=== PATIENT | male | born 1965 | race Caucasian/White ===

== ENCOUNTER 2016-11-27 03:21 | Inpatient (IN) | payer OTHER ==
[2016-11-27] VITALS (62 sets, daily range): BP systolic 64–121; BP diastolic 48–105; PULSE 100–121; RESP 24–26; TEMP 98.1; Ht 172.7 cm; Wt 96.8 kg
[~2016-11-27] VITALS: Ht 172.7 cm; Wt 96.8 kg
[2016-11-27] MEDS ORDERED: MIDAZOLAM (DRIP) 50 mg/50 mL 50 ML IV STA (03:57)
[2016-11-27] MEDS ORDERED: SOD CHLORIDE 0.9% 1,000 ML IV STA ×2 (03:57→04:50)
[2016-11-27] MEDS ORDERED: FENTAnyl (DRIP) 1000 mcg/100mL 100 ML IV ONE (04:00)
[2016-11-27] MEDS ORDERED: ASPIRIN 300 MG SUPP PR STA (04:50)
[2016-11-27] MEDS: DOPamine-D5W 1.6 MG/ML 250 ML IV SCH ×3 (04:55→18:28)
[2016-11-27] MEDS ORDERED: SOD CHLORIDE 0.9% 1,000 ML IV ONE ×3 (05:00→06:00)
[2016-11-27 05:09] LABS: BASOPHILS % 0.3 % (0.0-2.0); EOSINOPHILS % 0.2 % (0.0-7.0); HEMOGLOBIN 13.2 g/dl (14.0-18.0); LYMPHOCYTES # 3.5 10^3/ul (0.8-2.9); LYMPHOCYTES % 22.8 % (15.0-51.0); MEAN CORPUSCULAR HEMOGLOBIN 33.7 pg (29.0-33.0); MEAN CORPUSCULAR HGB CONC 32.2 g/dl (32.0-37.0); MEAN CORPUSCULAR VOLUME 104.6 fl (82.0-101.0); MEAN PLATELET VOLUME 11.5 fl (7.4-10.4); MONOCYTE # 0.9 10^3/ul (0.3-0.9); MONOCYTES % 5.9 % (0.0-11.0); NEUTROPHIL # 10.3 10^3/ul (1.6-7.5); NEUTROPHILS % 67.8 % (39.0-77.0); NUCLEATED RED BLOOD CELLS% 0.1 /100WBC (0.0-0.0); PLATELET COUNT 191 10^3/UL (140-415); RED BLOOD COUNT 3.92 10^6/ul (4.70-6.10); RED CELL DISTRIBUTION WIDTH 12.3 % (11.5-14.5); WHITE BLOOD COUNT 15.1 10^3/ul (4.8-10.8)
[2016-11-27 05:13] LABS: ADD SCAN DIFF NO
--- NOTE | 2016-11-27 05:16 | RADRPT ---
PROCEDURE: XR Chest. CLINICAL INDICATION: Cardiac arrest. Chest pain. TECHNIQUE: Portable single view of the chest COMPARISON: None. FINDINGS: The cardiopericardial silhouette is enlarged. Mediastinal contours appear widened. Probable externa l pacer overlies the heart. Electronic device partially obscures visualization of the malathi. The endotracheal tube is likely in the mid trachea between the malathi and clavicles. Lung volumes are r educed. There is mild pulmonary vascular congestion. No focal infiltrate or pleural effusion. No pneumothorax is seen. Air is seen in the stomach. IMPRESSION: Cardiomegaly and mild congestion. Endotracheal tube likely in good position. Enlarged cardioperica rdial silhouette with slightly widened mediastinum. CT may be obtained if dissection is suspected c linically. RPTAT: [facility] Physician Vanessa Date Time Electronically viewed and signed by Dee Villagran Physician on 11/27/2016 05:15 LE/
[2016-11-27 05:17] LABS: ALBUMIN 4.5 g/dl (3.3-4.9); BILIRUBIN,INDIRECT 0.4 mg/dl (0-1.1); BILIRUBIN,TOTAL 0.4 mg/dl (0.2-1.3); CALCIUM 9.3 mg/dl (8.4-10.2); CREATININE 1.36 mg/dl (0.61-1.24); INR 1.3; PARTIAL THROMBOPLASTIN TIME 37.6 Sec (25.0-35.0); POTASSIUM 3.7 mmol/L (3.5-5.1); PROTIME 16.3 Sec (12.2-14.2); PT RATIO 1.3; TOTAL PROTEIN 7.3 g/dl (6.1-8.1)
[2016-11-27 05:31] LABS: CK-MB 39.4 ng/ml (0.0-2.4)
[2016-11-27 05:33] LABS: TROPONIN-I 34.9 ng/ml (0.00-0.12)
[2016-11-27] MEDS ORDERED: HEPARIN 1000 UNITS/ML 10 ML INJ IV STA (05:51)
[2016-11-27] MEDS ORDERED: HEPARIN 25000 UNITS/250 ML 250 ML IV STA (05:51)
--- NOTE | 2016-11-27 06:21 | ERA ---
ER Documentation Chief Complaint Date/Time DATE: 11/27/16 TIME: 06:11 Chief Complaint CARDIAC ARREST, ROSC HPI This 51-year-old male was brought in by paramedics after being found in a V. fib initial rhythm cardiac arrest. Initiated CPR immediately. They gave him for doses of epinephrine and placed a Ephraim tube. He did get return of spontaneous circulation prior to arrival. My medical history there was hypertension elevated ammonia from the family. ROS Unobtainable Allergies Allergies: Coded Allergies: No Known Allergy (Unverified , 11/27/16) PMhx/Soc Medical and Surgical Hx: Unable to obtain Smoking Status: Unknown if ever smoked Physical Exam Vitals Vital Signs Date Time Temp Pulse Resp B/P Pulse Ox O2 Delivery O2 Flow Rate FiO2 11/27/16 05:45 89 20 94/61 100 Mechanical Ventilator 11/27/16 05:30 90 20 96/65 100 Mechanical Ventilator 11/27/16 05:21 90 24 100 50 11/27/16 05:15 89 20 91/65 100 Mechanical Ventilator 11/27/16 05:00 91 20 83/61 100 Mechanical Ventilator 11/27/16 04:50 91 24 100 100 11/27/16 04:45 87 20 100 Mechanical Ventilator 11/27/16 04:30 92 20 88/56 100 Mechanical Ventilator 11/27/16 04:15 98.1 90 20 82/66 100 Mechanical Ventilator 11/27/16 03:36 98.1 91 20 84/62 100 11/27/16 03:30 100 Physical Exam Const: [] Head: Atraumatic Eyes: Normal Conjunctiva ENT: Normal External Ears, Nose and Mouth. Neck: Full range of motion..~ No meningismus. Resp: Clear to auscultation bilaterally Cardio: Regular rate and rhythm, no murmurs Abd: Soft, non tender, non distended. Normal bowel sounds Skin: No petechiae or rashes Back: No midline or flank tenderness Ext: No cyanosis, or edema Neur: Awake and alert Psych: Normal Mood and Affect Result Diagram: 11/27/16 0350 11/27/16 0350 Results 24 hrs Laboratory Tests Test 11/27/16 03:50 White Blood Count 15.110^3/ul Red Blood Count 3.9210^6/ul Hemoglobin 13.2g/dl Hematocrit 41.0% Mean Corpuscular Volume 104.6fl Mean Corpuscular Hemoglobin 33.7pg Mean Corpuscular Hemoglobin Concent 32.2g/dl Red Cell Distribution Width 12.3% Platelet Count 96501^3/UL Mean Platelet Volume 11.5fl Neutrophils % 67.8% Lymphocytes % 22.8% Monocytes % 5.9% Eosinophils % 0.2% Basophils % 0.3% Nucleated Red Blood Cells % 0.1/100WBC Neutrophils # 10.310^3/ul Lymphocytes # 3.510^3/ul Monocytes # 0.910^3/ul Eosinophils # 0.010^3/ul Basophils # 0.010^3/ul Nucleated Red Blood Cells # 0.010^3/ul Prothrombin Time 16.3Sec Prothrombin Time Ratio 1.3 INR International Normalized Ratio 1.30 Activated Partial Thromboplast Time 37.6Sec Sodium Level 133mmol/L Potassium Level 3.7mmol/L Chloride Level 92mmol/L Carbon Dioxide Level 19mmol/L Anion Gap 26 Blood Urea Nitrogen 12mg/dl Creatinine 1.36mg/dl Glucose Level 220mg/dl Calcium Level 9.3mg/dl Total Bilirubin 0.4mg/dl Direct Bilirubin 0.00mg/dl Indirect Bilirubin 0.4mg/dl Aspartate Amino Transf (AST/SGOT) 578IU/L Alanine Aminotransferase (ALT/SGPT) 543IU/L Alkaline Phosphatase 102IU/L Ammonia 25umol/l Creatine Kinase 792IU/L Creatine Kinase Index 5.0 Creatinine Kinase MB (Mass) 39.40ng/ml Troponin I 34.900ng/ml Total Protein 7.3g/dl Albumin 4.5g/dl Current Medications Medications (Trade) Dose Ordered Sig/Yeny Route PRN Reason Start Time Stop Time Status Last Admin Dose Admin Sodium Chloride 1,000 ml @ 1,000 mls/hr Q1H STAT IV 11/27/16 03:57 11/27/16 04:56 DC 11/27/16 04:03 Midazolam HCl 50 ml @ 3 mls/hr ONCE STAT IV 11/27/16 03:57 11/27/16 20:36 11/27/16 04:04 Fentanyl 100 ml @ 2.5 mls/hr TITRATE ONCE IV 11/27/16 04:00 11/28/16 19:59 11/27/16 04:21 Dopamine HCl/ Dextrose 250 ml @ 9.887 mls/ hr TITRATE IV 11/27/16 05:00 11/27/16 04:55 Sodium Chloride 1,000 ml @ 1,000 mls/hr Q1H ONCE IV 11/27/16 05:00 11/27/16 05:59 DC 11/27/16 04:54 Sodium Chloride (NS) 1,000 ml @ 1,000 mls/hr Q1H STAT IV 11/27/16 04:50 11/27/16 05:49 DC 11/27/16 05:21 Aspirin 300 mg 300 mg ONCE STAT WA 11/27/16 04:50 11/27/16 04:54 DC 11/27/16 05:35 Sodium Chloride (NS) 1,000 ml @ 1,000 mls/hr Q1H ONCE IV 11/27/16 05:30 11/27/16 06:29 11/27/16 05:21 Heparin Sodium (Porcine) 4000 unit 4,000 unit ONCE STAT IV 11/27/16 05:51 11/27/16 06:04 DC Heparin Sodium (Porcine) 250 ml @ 0 mls/hr ONCE STAT IV 11/27/16 05:51 11/27/16 06:04 DC Sodium Chloride (NS) 1,000 ml @ 1,000 mls/hr Q1H ONCE IV 11/27/16 06:00 11/27/16 06:59 Procedures/MDM V. fib arrest. Patient with significant hypotension after that. He was immediately intubated on arrival with an ET tube. Amiodarone 300 mg was administered. Patient's blood pressure is initially very low. I placed a central line in the meantime administered 1 dose of epinephrine was temporarily bridge the blood pressure. No signs of infection. Spoke with the [facility] doctor and asked him to look to the patient's chart. He stated the patient has had mildly elevated LFTs in the past but never significantly elevated ammonia level. So the patient is also diabetic which the family did not contribute. Patient's blood pressure was still low on Levophed and dopamine was also added. He was given multiple liters of IV fluid. Initially spoke with Dr. Bowden after patient's arrival initial EKG. EKG did not show STEMI she did not think the patient needed to be emergently catheterized. Patient was given rectal aspirin and heparinized. Spoke with Dr. Lujan will be admitting the patient ICU. I have ordered a CT abdomen pelvis for completeness with a significant elevated liver enzymes and will be followed by the panel team as I have mentioned to Dr. Lujan. Hypothermia protocol was not initiated because patient's initial arrival he had apparent purposeful movements just following intubation. Also required increasing sedation as he was bucking the vent, chewing in ET tube and moving his arms and legs. EKG interpretation: Accelerated junctional rhythm with no visible P waves, rate of 90, ST elevations in lead V2 with no consecutive ST elevations. T-wave in lead inversions in inferior leads III and aVF. Bifascicular block. monitoring analyst interpretation: Normal sinus rhythm alternating with junctional rhythm without tachycardia or other arrhythmias. Chest x-ray interpretation: Cardiomegaly with no acute process. ET tube in place. I see no pneumothorax, no pulmonary edema, no infiltrates, no fractures Critical care time 48 minutes: This does not include any billable procedures. It does include postresuscitative care, consideration of hypothermia protocol, careful fluid administration, vasodepressor use, ventilator management, chart reviewed, discussion with García doctor and admitting doctor as well as family, at least 20 minutes at the patient's bedside and multiple visits to reassess his status. Central line note, right femoral: Sterile technique was used with mass Gown and gloves and drapes chlorhexidine wipe. Ultrasound guidance was used with probe covered easily introduce a 7 [place] triple-lumen catheter into the right femoral vein under direct ultrasound visualization. All ports flushed well. There was good blood flow. Patient taught the procedure well no complications. Departure Diagnosis: Primary Impression: Cardiac arrest Additional Impressions: Non-STEMI (non-ST elevated myocardial infarction) Renal insufficiency Elevated LFTs Hyponatremia Condition: Critical HUMPHREY CLARKE DO Nov 27, 2016 06:21
[2016-11-27] MEDS ORDERED: ATOR40TA68 PO (06:27)
[2016-11-27] MEDS ORDERED: CEFU500T45 PO (06:29)
[2016-11-27 06:43] LABS: ADD UMIC YES; UR ASCORBIC ACID 40 mg/dL (NEGATIVE); UR BACTERIA MODERATE /HPF (NONE SEEN); UR BILIRUBIN (Dip) NEGATIVE (NEGATIVE); UR BLOOD (Dip) NEGATIVE (NEGATIVE); UR BUDDING YEAST FEW /HPF (NONE SEEN); UR CLARITY CLOUDY (CLEAR); UR COLOR AMBER (YELLOW); UR GLUCOSE (Dip) 1+ mg/dL (NEGATIVE); UR KETONES (Dip) TRACE mg/dL (NEGATIVE); UR LEUKOCYTE ESTERASE (Dip) NEGATIVE Leu/ul (NEGATIVE); UR MUCUS MANY /HPF (NONE SEEN); UR NITRITE (Dip) NEGATIVE (NEGATIVE); UR RBC 4 /HPF (0-5); UR SPECIFIC GRAVITY (Dip) 1.026 (1.003-1.030); UR TOTAL PROTEIN (Dip) 2+ mg/dl (NEGATIVE); UR UROBILINOGEN (Dip) NEGATIVE (NEGATIVE)
--- NOTE | 2016-11-27 06:53 | RADRPT ---
PROCEDURE: CT Abdomen and pelvis without contrast. CLINICAL INDICATION: Abdominal pain. TECHNIQUE: CT scan of the abdomen and pelvis was performed on a multi-detector high-resolution CT scanner. Contiguous axial images were obtained from the lung bases to the ischial tuberosities wit hout intravenous contrast. Coronal and sagittal reformatted images were also obtained. Images were reviewed on the PACS workstation. One or more of the following dose reduction techniques were used: - Automated exposure control. - Adjustment of the mA and/or kV according to patient size. - Use of iterative reconstruction technique. Exam CTD/vol = 22.17 mGy. Total exam DLP = 1559.93 mGy-cm. COMPARISON: None. FINDINGS: Evaluation of the lung bases demonstrates mild bibasilar atelectasis and small pleural effusions. T he heart is mildly enlarged. Abdomen: The liver is normal in size and diffusely low in attenuation consistent with fatty infiltr ation. There is no focal mass or dilatation of the biliary tree. The gallbladder is not distended. The spleen, pancreas and bilateral adrenal glands are within normal limits. Bilateral kidneys are normal in size with no contour deforming mass identified. There is no radiopaque renal or ureteral calculus identified. There is no hydronephrosis or hydroureter. There is no retroperitoneal adeno turner. The abdominal aorta is of normal caliber. There is mild stranding within the mid upper abdom en. There is no abnormal bowel wall thickening or distension. There is no bowel obstruction or free air . A normal appendix is identified. There is no diverticulosis or diverticulitis. There is no asci baljit. Pelvis: The bladder contains a Linda catheter. There is a right femoral central venous catheter. T he prostate and seminal vesicles are within normal limits. There is no significant pelvic adenopath y or free fluid. Evaluation of the osseous structures demonstrates no suspicious lytic or blastic lesion. IMPRESSION: Mild nonspecific stranding within the mid upper abdomen could be secondary to pancreatitis. Clinical ly correlate. Fatty infiltration of the liver. Mild bibasilar atelectasis and small pleural effusions. Mild cardiomegaly. .Jeremy Lock MD, MD Date Time Electronically viewed and signed by .Jeremy Lock MD, MD on 11/27/2016 06:53 .T/
[2016-11-27] MEDS ORDERED: DOPamine-D5W 1.6 MG/ML 250 ML ONE (07:00)
[2016-11-27] MEDS ORDERED: NORepinephrine 8MG/250 ML (PMX 250 ML IV SCH ×3 (07:00)
[2016-11-27] MEDS ORDERED: EPINEPHrine 0.1 MG/ML SYG ONE (07:00)
[2016-11-27] MEDS ORDERED: HEPARIN 1000 UNITS/ML 10 ML INJ IV ONE (07:30)
[2016-11-27] MEDS ORDERED: HEPARIN 1000 UNITS/ML 10 ML INJ IV PRN (07:30)
[2016-11-27] MEDS ORDERED: HEPARIN 25000 UNITS/250 ML 250 ML IV SCH (08:00)
[2016-11-27 08:49] LABS: ADD SCAN DIFF NO
[2016-11-27 08:55] LABS: ABNORMAL IP MESSAGE 1; BASOPHIL # 0.1 10^3/ul (0.0-0.1); BASOPHILS % 0.2 % (0.0-2.0); HEMATOCRIT 35.8 % (42.0-52.0); HEMOGLOBIN 11.6 g/dl (14.0-18.0); LYMPHOCYTES # 1.5 10^3/ul (0.8-2.9); LYMPHOCYTES % 6.6 % (15.0-51.0); MEAN CORPUSCULAR HEMOGLOBIN 33.2 pg (29.0-33.0); MEAN CORPUSCULAR HGB CONC 32.4 g/dl (32.0-37.0); MEAN CORPUSCULAR VOLUME 102.6 fl (82.0-101.0); MEAN PLATELET VOLUME 11.2 fl (7.4-10.4); MONOCYTES % 8.8 % (0.0-11.0); NEUTROPHIL # 18.4 10^3/ul (1.6-7.5); NEUTROPHILS % 80.3 % (39.0-77.0); PLATELET COUNT 176 10^3/UL (140-415); RED BLOOD COUNT 3.49 10^6/ul (4.70-6.10); RED CELL DISTRIBUTION WIDTH 12.7 % (11.5-14.5); WHITE BLOOD COUNT 22.9 10^3/ul (4.8-10.8)
[2016-11-27 08:59] LABS: Allen Test ACCEPTAB; Arterial COHb 0.3 % (0.0-3.0); Arterial Fraction of Oxyhgb 98.7 % (93.0-99.0); Arterial HCO3 14.3 mmol/L (22.0-26.0); Arterial MetHb 0.4 % (0.0-1.5); Arterial Total Hemglobin 13.7 g/dl (12.0-18.0); MODE VENT - AC
[2016-11-27] MEDS ORDERED: NA BICARBONATE 8.4% 50 ML SYG ONE (09:05)
[2016-11-27 09:11] LABS: INR 1.47; PROTIME 17.9 Sec (12.2-14.2); PT RATIO 1.4
[2016-11-27 09:12] LABS: PARTIAL THROMBOPLASTIN TIME 29.5 Sec (25.0-35.0)
[2016-11-27] MEDS ORDERED: NA BICARBONATE 8.4% 50 ML SYG IV STA (09:32)
--- NOTE | 2016-11-27 10:21 | CONS ---
Date/Time of Note Date/Time of Note DATE: 11/27/16 TIME: 10:17 Assessment/Plan Assessment/Plan Chief Complaint/Hosp Course Assessment 1. Ventricular fibrillation with cardiac arrest. 2. Possible underlying coronary artery disease. 3. Possible aspiration pneumonia. 4. Hypoxemic respiratory failure. 5. Incomplete data. 6. Significant metabolic acidosis. Possible hypoperfusion. Plan 1. Continue mechanical ventilation 2. Intravenous bicarbonate 3. Broad-spectrum antibiotics for possible aspiration pneumonia 4. Continue cardiac recommendations 5. DVT and GI prophylaxis 6. Contact [facility] to obtain previous notes and past medical history Problems: Consultation Date/Type/Reason Admit Date/Time Nov 27, 2016 at 05:46 Type of Consultation: Pulmonary ICU Reason for Consultation Hypoxemic respiratory failure Hx of Present Illness 51-year-old gentleman found down by family members. Unresponsive. Upon arrival of EMS patient was found to be in ventricular fibrillation requiring cardioversion. He had spontaneous return of circulation according to charting. Upon arrival in the emergency room patient had purposeful movements therefore hypothermia protocol was not initiated. A few further details are available at present. Patient is intubated on mechanical ventilation no family are present. Currently unable to perform patient is intubated on mechanical ventilation Past Medical History Unknown. Past Surgical History Unknown. Social History Unable to obtain at present. Smoking Status: Never smoker Exam/Review of Systems Vital Signs Vitals Vital Signs Date Time Temp Pulse Resp B/P Pulse Ox O2 Delivery O2 Flow Rate FiO2 11/27/16 09:27 103 24 103/74 100 Mechanical Ventilator 11/27/16 09:00 50 11/27/16 08:56 99.9 Exam PHYSICAL EXAMINATION GENERAL: Moderately obese gentleman orally intubated. VITAL SIGNS: see below. HEENT: Pupils equal, round, and reactive to light. CARDIAC: S1, S2, 1/6 systolic ejection murmur CHEST: Diminished air entry bilaterally. ABDOMEN: Mildly distended. Bowel sounds present no guarding or rebound EXTREMITIES: No cyanosis, clubbing edema +1 NEUROLOGIC: Generalized weakness Results Result Diagram: 11/27/16 0805 11/27/16 0350 Results 24 hrs Laboratory Tests Test 11/27/16 03:50 11/27/16 04:30 11/27/16 08:05 White Blood Count 15.1 H 22.9 #H Red Blood Count 3.92 L 3.49 L Hemoglobin 13.2 L 11.6 L Hematocrit 41.0 L 35.8 L Mean Corpuscular Volume 104.6 H 102.6 H Mean Corpuscular Hemoglobin 33.7 H 33.2 H Mean Corpuscular Hemoglobin Concent 32.2 32.4 Red Cell Distribution Width 12.3 12.7 Platelet Count 191 176 Mean Platelet Volume 11.5 H 11.2 H Neutrophils % 67.8 80.3 H Lymphocytes % 22.8 6.6 L Monocytes % 5.9 8.8 Eosinophils % 0.2 0.0 Basophils % 0.3 0.2 Nucleated Red Blood Cells % 0.1 H 0.0 Neutrophils # 10.3 H 18.4 H Lymphocytes # 3.5 H 1.5 Monocytes # 0.9 2.0 H Eosinophils # 0.0 0.0 Basophils # 0.0 0.1 Nucleated Red Blood Cells # 0.0 0.0 Prothrombin Time 16.3 H 17.9 H Prothrombin Time Ratio 1.3 1.4 INR International Normalized Ratio 1.30 1.47 Activated Partial Thromboplast Time 37.6 H 29.5 Urine Color VIVIAN Urine Clarity CLOUDY A Urine pH 5.0 Urine Specific [place] 1.026 Urine Ketones TRACE A Urine Nitrite NEGATIVE Urine Bilirubin NEGATIVE Urine Urobilinogen NEGATIVE Urine Leukocyte Esterase NEGATIVE Urine Microscopic RBC 4 Urine Microscopic WBC 6 H Urine Bacteria MODERATE Urine Mucus MANY A Urine Yeast (Budding) FEW A Urine Hemoglobin NEGATIVE Urine Glucose 1+ H Urine Total Protein 2+ H Sodium Level 133 L Potassium Level 3.7 Chloride Level 92 L Carbon Dioxide Level 19 L Anion Gap 26 H Blood Urea Nitrogen 12 Creatinine 1.36 H Glucose Level 220 Calcium Level 9.3 Total Bilirubin 0.4 Direct Bilirubin 0.00 Indirect Bilirubin 0.4 Aspartate Amino Transf (AST/SGOT) 578 H Alanine Aminotransferase (ALT/SGPT) 543 H Alkaline Phosphatase 102 Ammonia 25 Creatine Kinase 792 H Creatine Kinase Index 5.0 Creatinine Kinase MB (Mass) 39.40 H Troponin I 34.900 *H Total Protein 7.3 Albumin 4.5 Lipase 193 Blood Gas Specimen Source Blood arterial Arterial Blood Date Drawn 11/27/2016 5:10:00 AM Arterial Blood pH (Temp corrected) 7.239 *L Arterial Blood pCO2 (Temp correct) 34.2 L Arterial Blood pO2 (Temp corrected) 335.8 H Arterial Blood HCO3 14.3 L Arterial Blood Base Excess -12.0 L Arterial Blood Oxygen Saturation 99.4 H Thomas Test ACCEPTAB Arterial Blood Gas Puncture Site Left Radial Arterial Blood Carboxyhemoglobin 0.3 Arterial Blood Methemoglobin 0.4 Blood Gas A-a O2 Differential 343.0 H Oxyhemoglobin Percent 98.7 Total Hemoglobin 13.7 Blood Gas Temperature 37.0 Blood Gas Respiration Rate 18.0 Blood Gas Actual Respiration Rate 27 Blood Gas Modality VENT - AC FiO2 100.0 Blood Gas Tidal Volume 550.0 Blood Gas Inspiratory Pressure 26.0 Blood Gas Critical Value Read Back DR CLARKE Blood Gas Notified Whom MM Blood Gas Notified Time 11/27/2016 5:16:00 AM Medications Medications Current Medications Fentanyl 100 ml @ 2.5 mls/hr TITRATE ONCE IV Last administered on 11/27/16 04 :21; Admin Dose 2.5 MLS/HR; Start 11/27/16 at 04:00; Stop 11/28/16 at 19:59 Dopamine HCl/ Dextrose 250 ml @ 9.887 mls/ hr TITRATE IV Last administered on 11/27/16 04:55; Admin Dose 24.716 MLS/HR; Start 11/27/16 at 05:00 Pantoprazole 40 mg 40 mg DAILY@06 IV ; Start 11/28/16 at 06:00 Norepinephrine/ Dextrose (Levophed/D5W) 500 ml @ 1.87 mls/hr TITRATE IV Last administered on 11/27/16 10:00; Admin Dose 56.25 MLS/HR; Start 11/27/16 at 09:00 ST[facility] PLAZA [facility] Nov 27, 2016 10:20
--- NOTE | 2016-11-27 10:50 | RADRPT ---
PROCEDURE: Right Upper Quadrant Ultrasound. CLINICAL INDICATION: elevated lfts TECHNIQUE: Multiple real-time images were acquired of the patient's right upper quadrant abdomen a nd retroperitoneum utilizing a high resolution transducer. COMPARISON: None FINDINGS: The liver measures 20.7 cm, and demonstrates diffusely increased echogenicity. The main portal vein is patent with proper directional flow. There is no intrahepatic biliary ductal dilatation. The extr ahepatic common bile duct measures 6 mm. There is no cholelithiasis. The gallbladder is contracted which limits evaluation for wall thickeni ng. There is no pericholecystic fluid. The visualized pancreas is unremarkable. The right kidney measures cm and demonstrates normal echotexture. There is no right renal calculus or hydronephrosis. The visualized abdominal aorta and IVC are grossly unremarkable. IMPRESSION: Marked hepatomegaly with severe fatty infiltration. Contracted gallbladder without cholelithiasis or acute cholecystitis. The CBD is top - normal in di ameter at 6 mm. RPTAT: EE Physician Naman Date Time Electronically viewed and signed by Physician Naman on 11/27/2016 10:50 /
[2016-11-27] MEDS: PIPER-TAZO 3.375 GM IV (PMX) 100 ML IVPB SCH ×2 (11:28→21:57)
[2016-11-27] MEDS ORDERED: ACETAMINOPHEN 325 MG TAB PO PRN (12:00)
[2016-11-27] MEDS ORDERED: ACETAMINOPHEN 650MG/20.3ML CUP NGT PRN (12:00)
[2016-11-27 12:11] LABS: CK-MB 58.4 ng/ml (0.0-2.4); TROPONIN-I 35.7 ng/ml (0.00-0.12)
[2016-11-27 12:13] LABS: AADO2 Arterial 237.2 mmHg (7.0-24.0); Arterial Base Excess -3.9 mmol/L (-3.0-3); Arterial COHb 0.3 % (0.0-3.0); Arterial HCO3 18.8 mmol/L (22.0-26.0); Arterial MetHb 0.2 % (0.0-1.5); Arterial Total Hemglobin 14.3 g/dl (12.0-18.0); MODE VENT - AC
[2016-11-27] MEDS: SOD CHLORIDE 0.9% 1,000 ML IV SCH ×2 (12:33→21:58)
[2016-11-27] MEDS: MIDAZOLAM (DRIP) 50 mg/50 mL 50 ML IV SCH ×2 (12:34→23:00)
[2016-11-27] MEDS ORDERED: PIPER-TAZO 3.375 GM IV (PMX) 100 ML IVPB SCH (14:00)
[2016-11-27 14:26] LABS: ALBUMIN 3.6 g/dl (3.3-4.9); ALBUMIN/GLOBULIN RATIO 1.33; BILIRUBIN,DIRECT 1.2 mg/dl (0.00-0.20); BILIRUBIN,INDIRECT 0.4 mg/dl (0-1.1); BILIRUBIN,TOTAL 1.6 mg/dl (0.2-1.3); CALCIUM 7.1 mg/dl (8.4-10.2); CREATININE 2.44 mg/dl (0.61-1.24); POTASSIUM 4.4 mmol/L (3.5-5.1); TOTAL PROTEIN 6.3 g/dl (6.1-8.1)
--- NOTE | 2016-11-27 14:56 | CONS ---
Date/Time of Note Date/Time of Note DATE: 11/27/16 TIME: 14:38 Assessment/Plan Assessment/Plan Additional Assessment/Plan 1. acute CO 2. VT cardiac arrest 3. shock: cardiogenic +/- septic 4. Afib 5. CHF: class IV 6. Acute hypoxemic resp failure 7. encephalopathy 8. ACUTE RENAL FAILURE. 9. DM 10. elevated LFT 11. FEVER & SEPSIS 12. SEVERE CARDIOMYOPATHY ASA Heparin drip for now vent support cont pressors. echo stat replace lytes prn mucomyst IV renal consult i urgent LHC/ dinh angio PCI IABP. This will minutes into the procedure discussed with the patient's and daughters in detail. Risks include not limited to risk of infection vascular congestion bleeding, CO stroke arrhythmia at that renal failure at this were discussed with him in detail it was explained to them that the patient risk would be much higher than average patients including a increased risk of , stroke and infection. Patient would be a very high risk of renal failure requiring dialysis. He has considered the procedure. Prognosis is guarded at best. I gave 1 dose of digoxin IV. Antibiotic has been started by her medicine pulmonary vent support will be continued continue the ICU care. more than 45 minutes critical care time was reminded she is patient's including procedures. r Consultation Date/Type/Reason Admit Date/Time Nov 27, 2016 at 05:46 Date of Consultation: Nov 27, 2016 Reason for Consultation CO Referring Provider: TALIA LANGE Hx of Present Illness This is an unfortunate 48-year-old gentleman with history of probably liver disease and prediabetes pulmonary has had intermittent chest pain over the past few days. Patient was brought in after a cardiac arrest. He apparently had V. fib cardiac arrest and had to be cardioverted. Discussed with the patient daughters as well as his . D.W with Dr LANGE. discussed with the staff and chart was reviewed. Per chart, code STEMI initially was activated. We discussed with the on-call STEMI doctor Dr. Randolph overnight per record it was was felt by the team that patient does not meet criteria for emergent cardiac catheterization. Patient admitted to ICU. Has been hypotensive. He is on multiple pressors currently on heparin drip. She remains nonverbal status with intubation on the vent. In the emergency room was felt that the patient does not meet the criteria for hypothermia and hypothermia was not started. I was asked to take over the cardiac care. Discussed with the family members as per daughter's report patient has had complaint of chest pain multiple days for by now there is no report of any cardiac disorders. He states that patient has had " elevated ammonia "level. Patient today has suddenly passed out. Has been cardioverted he has been hypotensive in atrial fibrillation. Past medical history: History of prediabetic obesity history of possible liver disease and elevated ammonia level. Social history patient does not smoke or drink patient is a [employer] member. Family history no reported coronary artery disease Allergies: No known drug allergies. Occasion at home reviewed. Review of system as above only as much liquid obtained. Social History Smoking Status: Never smoker Exam/Review of Systems Vital Signs Vitals Vital Signs Date Time Temp Pulse Resp B/P Pulse Ox O2 Delivery O2 Flow Rate FiO2 11/27/16 14:15 120 24 100/78 94 Mechanical Ventilator 11/27/16 11:30 103.0 11/27/16 10:47 50 Exam General: obese man intubated on vent. nonresponsive but sedated. HEENT: NC/AT. pupils are constricted. round. s/p intubation on vent NECK: . no stridor. CV: irregularly irregualr. systolic murmur; no gallop or rubs. PULM: diffuse rhonchi. GI: obese soft , NT, ND, no rebound or guarding Extremity: + B/L LE edema. no clubbing. neuro: unresponsive. Psych: calm rectal: deferred : normal Results Result Diagram: 11/27/16 0805 11/27/16 1050 Results 24 hrs Laboratory Tests Test 11/27/16 03:50 11/27/16 04:30 11/27/16 08:05 11/27/16 10:50 White Blood Count 15.1 H 22.9 #H Red Blood Count 3.92 L 3.49 L Hemoglobin 13.2 L 11.6 L Hematocrit 41.0 L 35.8 L Mean Corpuscular Volume 104.6 H 102.6 H Mean Corpuscular Hemoglobin 33.7 H 33.2 H Mean Corpuscular Hemoglobin Concent 32.2 32.4 Red Cell Distribution Width 12.3 12.7 Platelet Count 191 176 Mean Platelet Volume 11.5 H 11.2 H Neutrophils % 67.8 80.3 H Lymphocytes % 22.8 6.6 L Monocytes % 5.9 8.8 Eosinophils % 0.2 0.0 Basophils % 0.3 0.2 Nucleated Red Blood Cells % 0.1 H 0.0 Neutrophils # 10.3 H 18.4 H Lymphocytes # 3.5 H 1.5 Monocytes # 0.9 2.0 H Eosinophils # 0.0 0.0 Basophils # 0.0 0.1 Nucleated Red Blood Cells # 0.0 0.0 Prothrombin Time 16.3 H 17.9 H Prothrombin Time Ratio 1.3 1.4 INR International Normalized Ratio 1.30 1.47 Activated Partial Thromboplast Time 37.6 H 29.5 Urine Color VIVIAN Urine Clarity CLOUDY A Urine pH 5.0 Urine Specific [place] 1.026 Urine Ketones TRACE A Urine Nitrite NEGATIVE Urine Bilirubin NEGATIVE Urine Urobilinogen NEGATIVE Urine Leukocyte Esterase NEGATIVE Urine Microscopic RBC 4 Urine Microscopic WBC 6 H Urine Bacteria MODERATE Urine Mucus MANY A Urine Yeast (Budding) FEW A Urine Hemoglobin NEGATIVE Urine Glucose 1+ H Urine Total Protein 2+ H Sodium Level 133 L 129 L Potassium Level 3.7 4.4 Chloride Level 92 L 96 L Carbon Dioxide Level 19 L 21 Anion Gap 26 H 16 # Blood Urea Nitrogen 12 23 #H Creatinine 1.36 H 2.44 #H Glucose Level 220 349 H Calcium Level 9.3 7.1 L Total Bilirubin 0.4 1.6 H Direct Bilirubin 0.00 1.20 #H Indirect Bilirubin 0.4 0.4 Aspartate Amino Transf (AST/SGOT) 578 H 700 H Alanine Aminotransferase (ALT/SGPT) 543 H 610 H Alkaline Phosphatase 102 112 Ammonia 25 < 9 L Creatine Kinase 792 H 963 H Creatine Kinase Index 5.0 6.1 Creatinine Kinase MB (Mass) 39.40 H 58.40 H Troponin I 34.900 *H 35.700 *H Total Protein 7.3 6.3 # Albumin 4.5 3.6 Lipase 193 Blood Gas Specimen Source Blood arterial Arterial Blood Date Drawn 11/27/2016 5:10:00 AM Arterial Blood pH (Temp corrected) 7.239 *L Arterial Blood pCO2 (Temp correct) 34.2 L Arterial Blood pO2 (Temp corrected) 335.8 H Arterial Blood HCO3 14.3 L Arterial Blood Base Excess -12.0 L Arterial Blood Oxygen Saturation 99.4 H Thomas Test ACCEPTAB Arterial Blood Gas Puncture Site Left Radial Arterial Blood Carboxyhemoglobin 0.3 Arterial Blood Methemoglobin 0.4 Blood Gas A-a O2 Differential 343.0 H Oxyhemoglobin Percent 98.7 Total Hemoglobin 13.7 Blood Gas Temperature 37.0 Blood Gas Respiration Rate 18.0 Blood Gas Actual Respiration Rate 27 Blood Gas Modality VENT - AC FiO2 100.0 Blood Gas Tidal Volume 550.0 Blood Gas Inspiratory Pressure 26.0 Blood Gas Critical Value Read Back DR CLARKE Blood Gas Notified Whom MM Blood Gas Notified Time 11/27/2016 5:16:00 AM Differential Comment AUTO w/SCAN Globulin 2.70 Albumin/Globulin Ratio 1.33 Test 11/27/16 12:00 Blood Gas Specimen Source Blood arterial Arterial Blood Date Drawn 11/27/2016 12:05:41 PM Arterial Blood pH (Temp corrected) 7.438 Arterial Blood pCO2 (Temp correct) 28.5 L Arterial Blood pO2 (Temp corrected) 87.2 Arterial Blood HCO3 18.8 L Arterial Blood Base Excess -3.9 L Arterial Blood Oxygen Saturation 96.5 Thomas Test N/A Arterial Blood Gas Puncture Site Right Brachial Arterial Blood Carboxyhemoglobin 0.3 Arterial Blood Methemoglobin 0.2 Blood Gas A-a O2 Differential 237.2 H Oxyhemoglobin Percent 96.0 Total Hemoglobin 14.3 Blood Gas Temperature 37.0 Blood Gas Respiration Rate 24.0 Blood Gas Actual Respiration Rate 24 Blood Gas Modality VENT - AC FiO2 50.0 Blood Gas Tidal Volume 600.0 Blood Gas High PEEP Setting 5.0 Blood Gas Notified Whom TM Blood Gas Notified Time 11/27/2016 12:13:21 PM Medications Medications Current Medications Fentanyl 100 ml @ 2.5 mls/hr TITRATE ONCE IV Last administered on 11/27/16 04 :21; Admin Dose 2.5 MLS/HR; Start 11/27/16 at 04:00; Stop 11/28/16 at 19:59 Dopamine HCl/ Dextrose 250 ml @ 7.275 mls/ hr TITRATE IV Last administered on 11/27/16 12:18; Admin Dose 49.433 MLS/HR; Start 11/27/16 at 05:00 Pantoprazole 40 mg 40 mg DAILY@06 IV ; Start 11/28/16 at 06:00 Norepinephrine 16 mg/Dextrose 500 ml @ 1.87 mls/hr TITRATE IV Last administered on 11/27/16 10:00; Admin Dose 56.25 MLS/HR; Start 11/27/16 at 09:00 Midazolam HCl 50 ml @ 1 mls/hr TITRATE IV Last administered on 11/27/16 12:34; Admin Dose 7 MLS/HR; Start 11/27/16 at 10:30 Piperacillin Sod/ Tazobactam Sod (Zosyn 3.375gm/ 100 ml (Pmx)) 100 ml @ 200 mls /hr Q8 IVPB Last administered on 11/27/16 11:28; Admin Dose 200 MLS/HR; Start 11/27/16 at 12:00 Acetaminophen (Tylenol Tab) 650 mg Q6H PRN PO PAIN AND OR ELEVATED TEMP; Start 11/27/16 at 12:00 Acetaminophen 650 mg 650 mg Q6H PRN NGT PAIN AND OR ELEVATED TEMP Last administered on 11/27/16 12:13; Admin Dose 650 MG; Start 11/27/16 at 12:00 Sodium Chloride (NS) 1,000 ml @ 100 mls/hr Q10H IV Last administered on 12:33; Admin Dose 100 MLS/HR; Start 11/27/16 at 12:30 NHI MAO MD Nov 27, 2016 14:55
[2016-11-27] MEDS ORDERED: ACCU-CHEK XX SCH (15:00)
[2016-11-27] MEDS ORDERED: DIGOXIN 500 MCG INJ IV ONE (15:00)
[2016-11-27] MEDS ORDERED: DEXTROSE 50% 50 ML SYRINGE IV PRN ×4 (15:00→15:30)
[2016-11-27] MEDS ORDERED: INSULIN HUMAN REGULAR 100 UNIT in SOD CHLORIDE 0.9% 99 ML IV SCH ×2 (15:00→15:30)
[2016-11-27] MEDS ORDERED: IODIXANOL LOCM 100 ML BTL ONE (15:21)
[2016-11-27] MEDS ORDERED: LIDOCAINE 1% (MDV) 20 ML INJ ONE (15:21)
[2016-11-27] MEDS ORDERED: NITROGLYCERIN (IC) 100 MCG/ML INJ ONE ×2 (15:24→15:53)
[2016-11-27] MEDS ORDERED: Discontinue all previous diabetes medication and insulin orders. XX ONE (15:30)
[2016-11-27] MEDS: ACCU-CHEK XX SCH ×8 (15:30→23:50)
[2016-11-27] MEDS ORDERED: Treatment of Hypoglycemia: XX SCH (15:30)
[2016-11-27] MEDS ORDERED: ACETYLCYSTEINE INJ 1,200 MG in SOD CHLORIDE 0.9% 100 ML IV SCH (15:30)
--- NOTE | 2016-11-27 15:33 | HP ---
Date/Time of Note Date/Time of Note DATE: 11/27/16 TIME: 15:24 Assessment/Plan VTE Prophylaxis VTE Prophylaxis Intervention: heparin Lines/Catheters [facility] Central Line Central line still needed: Yes Urinary Cath still in place: Yes Reason Cath still needed: urinary retention Assessment/Plan Chief Complaint/Hosp Course Assessment and plan: 51-year-old male status post cardiac arrest, non-ST elevation MA, renal insufficiency, intubated, on pressor support. 1. Cardiac arrest: Continue pressor support, follow cardiology recommendations , continue heparin drip for now. Follow-up echocardiogram results. Add insulin drip as well. 2. Renal failure: Patient's creatinine has gone up from 1.36-> 2.44. Continue IV fluids, get renal consult, monitor ins and outs, check BMP in the a.m. 3. Respiratory failure: Again patient was intubated in the ER. Continue duo nebs as needed, follow pulmonary recommendations for vent management 4. Prediabetes: Place patient on insulin drip as mentioned in #1, check A1c 5. GI prophylaxis: PPI 6. DVT prophylaxis: Heparin drip Problems: HPI/ROS Admit Date/Time Admit Date/Time Nov 27, 2016 at 05:46 Hx of Present Illness 51-year-old male past medical history of prediabetes, high cholesterol, who was having complaints weakness and decreased appetite and confusion and chills for the last 3 days, per family. Most of the information is obtained from the family and ER documentation as the patient is presently intubated and on pressors. Her family early this morning patient got up complaining of left arm numbness as he was getting out of bed he fell forward and was nonresponsive. Family started CPR and EMS was called and when patient arrived he was found with elevated troponin levels of 37, and on-call silver spray worker was called but determined that patient did not need to go to the [facility] at that time. There was no signs of any ST elevations on the EKG as well. Per family no prior history of any stroke or heart attack in the past. No complaints of any upper or lower GI bleeding no fevers no abdominal pain no chest pain or shortness of breath for the arrest occurred. PMH/Family/Social Past Medical History Medical History: diabetes, high cholesterol Past Surgical History Past Surgical Hx: other (Right elbow surgery) Social History Alcohol Use: none Smoking Status: Never smoker Drug Use: none Exam/Review of Systems Vital Signs Vitals Vital Signs Date Time Temp Pulse Resp B/P Pulse Ox O2 Delivery O2 Flow Rate FiO2 11/27/16 15:00 118 24 100/75 96 Mechanical Ventilator 11/27/16 11:30 103.0 11/27/16 10:47 50 Exam Exam General: Patient is intubated, lying in bed, sedated, on pressor HEENT: Is unable to fully assess at this time Neck: Supple Respiratory: Distant breath sounds bilaterally Cardiovascular: S1-S2 heard, regular rate and rhythm Abdomen: Soft, nontender, nondistended, no rebound or guarding, normal bowel sounds Muscular skeletal: No lower extremity edema bilaterally Neurologic: Unable to fully assess because patient is intubated and sedated Labs Result Diagram: 11/27/16 0805 11/27/16 1050 Medications Medications Current Medications Fentanyl 100 ml @ 2.5 mls/hr TITRATE ONCE IV Last administered on 11/27/16 04 :21; Admin Dose 2.5 MLS/HR; Start 11/27/16 at 04:00; Stop 11/28/16 at 19:59 Dopamine HCl/ Dextrose 250 ml @ 7.275 mls/ hr TITRATE IV Last administered on 11/27/16 12:18; Admin Dose 49.433 MLS/HR; Start 11/27/16 at 05:00 Pantoprazole 40 mg 40 mg DAILY@06 IV ; Start 11/28/16 at 06:00 Norepinephrine 16 mg/Dextrose 500 ml @ 1.87 mls/hr TITRATE IV Last administered on 11/27/16 10:00; Admin Dose 56.25 MLS/HR; Start 11/27/16 at 09:00 Midazolam HCl 50 ml @ 1 mls/hr TITRATE IV Last administered on 11/27/16 12:34; Admin Dose 7 MLS/HR; Start 11/27/16 at 10:30 Piperacillin Sod/ Tazobactam Sod (Zosyn 3.375gm/ 100 ml (Pmx)) 100 ml @ 200 mls /hr Q8 IVPB Last administered on 11/27/16 11:28; Admin Dose 200 MLS/HR; Start 11/27/16 at 12:00 Acetaminophen (Tylenol Tab) 650 mg Q6H PRN PO PAIN AND OR ELEVATED TEMP; Start 11/27/16 at 12:00 Acetaminophen 650 mg 650 mg Q6H PRN NGT PAIN AND OR ELEVATED TEMP Last administered on 11/27/16 12:13; Admin Dose 650 MG; Start 11/27/16 at 12:00 Sodium Chloride 1,000 ml @ 100 mls/hr Q10H IV Last administered on 11/27/16 12 :33; Admin Dose 100 MLS/HR; Start 11/27/16 at 12:30 Acetylcysteine/ Sodium Chloride (Acetadote/NS) 106 ml @ 106 mls/hr ONCE IV ; Start 11/27/16 at 15:30; Stop 11/27/16 at 15:31 Miscellaneous Information (* Miscellaneous Pharmacy Order) Discontinue all previ... PROTOCOL ONCE XX ; Start 11/27/16 at 15:30; Stop 11/27/16 at 15:31 Diagnostic Test (Pha) (Accu-Chek) 1 ea Q1H XX ; Start 11/27/16 at 15:30; Status UNV Dextrose (D50w Syringe) 25 ml Q15M PRN IV Till BS 80 mg/dL or above x2; Start 11/27/16 at 15:30; Status UNV Dextrose (D50w Syringe) 50 ml Q15M PRN IV Till BS 80 mg/dL or above x2; Start 11/27/16 at 15:30; Status UNV TALIA LANGE Nov 27, 2016 15:32
[2016-11-27] MEDS ORDERED: VERAPAMIL 5 MG INJ ONE (15:47)
[2016-11-27 16:19] LABS: AADO2 Arterial 505.4 mmHg (7.0-24.0); Arterial Base Excess -5.4 mmol/L (-3.0-3); Arterial COHb 0.3 % (0.0-3.0); Arterial Fraction of Oxyhgb 98.4 % (93.0-99.0); Arterial HCO3 17.2 mmol/L (22.0-26.0); Arterial MetHb 0.3 % (0.0-1.5); Arterial Total Hemglobin 13.8 g/dl (12.0-18.0); MODE VENT - AC
--- NOTE | 2016-11-27 16:39 | RADRPT ---
Echocardiogram Report Patient Name: CATHERINE MILLER Gender: Male Date: 1965 Study Date: 27-Nov-2016 [employer] Operator: [facility] Location: 107 Ref. Physician: NHI RUSSELL Quality: Adequate Procedures: Transthoracic echocardiogram with complete 2D, M-Mode, and doppler examination. Indications: MT. 2D/M Mode Doppler Measurement Value Normal Ranges Measurement Value Normal Ranges LVIDd 2D 4.8 3.5 - 5.6 cm AV Peak Guzman 1.9 m/sec LVIDs 2D 3.2 2.1 - 4.1 cm AV Peak PG 14.0 mmHg FS 2D 32.9 % AI Peak PG 62.0 mmHg LVPWd 2D 0.9 0.6 - 1.1 cm AI Peak Guzman 3.9 m/sec IVSd 2D 0.9 0.6 - 1.1 cm AI PHT 499.0 msec IVS/LVPW 2D 1.0 LVOT Peak Guzman 1.4 m/sec AoR Diam 2D 3.0 2.0 - 3.7 cm LVOT Peak PG 8.0 mmHg LA/Ao 2D 1 0 - 1 MV E Peak Guzman 1.4 m/sec EDV 2D 111.0 cm3 MR Peak PG 84.0 mmHg ESV 2D 33.4 cm3 MR Peak Guzman 4.6 m/sec LA Dimen 2D 3.2 2.3 - 4.0 cm TR Peak Guzman 2.6 m/sec TR Peak PG 27.0 mmHg RVSP 37.0 mmHg Findings Left Ventricle: Normal left ventricular systolic function. Normal left ventricular cavity size. Normal left ventricular wall thickness. Ejection fraction is visually estimated at 30 %. Multiple segmental wall motion abnormalities. Right Ventricle: Normal right ventricular size. Mild right ventricular hypokinesis. Left Atrium: The left atrium is normal in size. Right Atrium: The right atrium is normal in size. Mitral Valve: Mitral valve leaflets appear mildly thickened. Mild mitral annular calcification. Mild mitral valve regurgitation. Aortic Valve: Aortic cusps appear mildly calcified. Mild aortic valve regurgitation. Tricuspid Valve: Normal appearance of the tricuspid valve. Estimated peak PA systolic pressure 37 mmHg. There is mild tricuspid regurgitation. Pulmonic Valve: Pulmonic valve not well visualized. There is trace pulmonic regurgitation. Pericardium: There is an anterior echo free space consistent with epicardial fat pad. Aorta: Normal aortic root. IVC: Inferior vena cava without respiratory collapse, however, patient on ventilator. Conclusions 1.Normal left ventricular systolic function. Normal left ventricular cavity size. Normal left ventricular wall thickness. Ejection fraction is visually estimated at 30 %. Multiple segmental wall motion abnormalities. 2.The left atrium is normal in size. 3.Mitral valve leaflets appear mildly thickened. Mild mitral annular calcification. Mild mitral valve regurgitation. 4.Aortic cusps appear mildly calcified. Mild aortic valve regurgitation. 5.Normal appearance of the tricuspid valve. Estimated peak PA systolic pressure 37 mmHg. There is mild tricuspid regurgitation. 6.Inferior vena cava without respiratory collapse, however, patient on ventilator. Electronically Signed By: Nhi Russell 27-Nov-2016 16:38:24 -0700 Patient Name: CATHERINE MILLER Study Date: 27-Nov-2016 [id number]
--- NOTE | 2016-11-27 17:11 | CONS ---
Date/Time of Note Date/Time of Note DATE: 11/27/16 TIME: 17:06 Assessment/Plan Assessment/Plan Additional Assessment/Plan 1. Acute renal failure sec to hypotension without evid of obstruction, has been volume expanded and requiring vent support, no diuretics needed now 2. Abnl liver tests to hypoxic liver injury 3. Mild hyponatremia receiving isotonic saline 4. Will follow with you Consultation Date/Type/Reason Admit Date/Time Nov 27, 2016 at 05:46 Date of Consultation: Nov 27, 2016 Type of Consultation: Renal Reason for Consultation Acute renal failure Referring Provider: TALIA LANGE Hx of Present Illness Pt admitted with V-fib cardiac arrest hypotensive and has remained on pressors with knon "liver dz" and hx elevated sugar. Subjective hx not possible: other (intubated on vent) Past Medical History Hx liver dz Medical History: diabetes, high cholesterol Past Surgical History Past Surgical Hx: other (Right elbow surgery) Social History Alcohol Use: none Smoking Status: Never smoker Drug Use: none Exam/Review of Systems Vital Signs Vitals Vital Signs Date Time Temp Pulse Resp B/P Pulse Ox O2 Delivery O2 Flow Rate FiO2 11/27/16 16:30 24 100 100 11/27/16 15:00 118 100/75 Mechanical Ventilator 11/27/16 11:30 103.0 Exam Neck: No jvd Respiratory: clear to auscultation, diminished breath sounds Cardiovascular: regular rate and rhythm Gastrointestinal: other (sl distended) Extremities: No edema Skin: other (sedated) Results Result Diagram: 11/27/16 0805 11/27/16 1050 Results 24 hrs Laboratory Tests Test 11/27/16 03:50 11/27/16 04:30 11/27/16 08:05 11/27/16 10:50 White Blood Count 15.1 H 22.9 #H Red Blood Count 3.92 L 3.49 L Hemoglobin 13.2 L 11.6 L Hematocrit 41.0 L 35.8 L Mean Corpuscular Volume 104.6 H 102.6 H Mean Corpuscular Hemoglobin 33.7 H 33.2 H Mean Corpuscular Hemoglobin Concent 32.2 32.4 Red Cell Distribution Width 12.3 12.7 Platelet Count 191 176 Mean Platelet Volume 11.5 H 11.2 H Neutrophils % 67.8 80.3 H Lymphocytes % 22.8 6.6 L Monocytes % 5.9 8.8 Eosinophils % 0.2 0.0 Basophils % 0.3 0.2 Nucleated Red Blood Cells % 0.1 H 0.0 Neutrophils # 10.3 H 18.4 H Lymphocytes # 3.5 H 1.5 Monocytes # 0.9 2.0 H Eosinophils # 0.0 0.0 Basophils # 0.0 0.1 Nucleated Red Blood Cells # 0.0 0.0 Prothrombin Time 16.3 H 17.9 H Prothrombin Time Ratio 1.3 1.4 INR International Normalized Ratio 1.30 1.47 Activated Partial Thromboplast Time 37.6 H 29.5 Urine Color VIVIAN Urine Clarity CLOUDY A Urine pH 5.0 Urine Specific [place] 1.026 Urine Ketones TRACE A Urine Nitrite NEGATIVE Urine Bilirubin NEGATIVE Urine Urobilinogen NEGATIVE Urine Leukocyte Esterase NEGATIVE Urine Microscopic RBC 4 Urine Microscopic WBC 6 H Urine Bacteria MODERATE Urine Mucus MANY A Urine Yeast (Budding) FEW A Urine Hemoglobin NEGATIVE Urine Glucose 1+ H Urine Total Protein 2+ H Sodium Level 133 L 129 L Potassium Level 3.7 4.4 Chloride Level 92 L 96 L Carbon Dioxide Level 19 L 21 Anion Gap 26 H 16 # Blood Urea Nitrogen 12 23 #H Creatinine 1.36 H 2.44 #H Glucose Level 220 349 H Calcium Level 9.3 7.1 L Total Bilirubin 0.4 1.6 H Direct Bilirubin 0.00 1.20 #H Indirect Bilirubin 0.4 0.4 Aspartate Amino Transf (AST/SGOT) 578 H 700 H Alanine Aminotransferase (ALT/SGPT) 543 H 610 H Alkaline Phosphatase 102 112 Ammonia 25 < 9 L Creatine Kinase 792 H 963 H Creatine Kinase Index 5.0 6.1 Creatinine Kinase MB (Mass) 39.40 H 58.40 H Troponin I 34.900 *H 35.700 *H Total Protein 7.3 6.3 # Albumin 4.5 3.6 Lipase 193 Blood Gas Specimen Source Blood arterial Arterial Blood Date Drawn 11/27/2016 5:10:00 AM Arterial Blood pH (Temp corrected) 7.239 *L Arterial Blood pCO2 (Temp correct) 34.2 L Arterial Blood pO2 (Temp corrected) 335.8 H Arterial Blood HCO3 14.3 L Arterial Blood Base Excess -12.0 L Arterial Blood Oxygen Saturation 99.4 H Thomas Test ACCEPTAB Arterial Blood Gas Puncture Site Left Radial Arterial Blood Carboxyhemoglobin 0.3 Arterial Blood Methemoglobin 0.4 Blood Gas A-a O2 Differential 343.0 H Oxyhemoglobin Percent 98.7 Total Hemoglobin 13.7 Blood Gas Temperature 37.0 Blood Gas Respiration Rate 18.0 Blood Gas Actual Respiration Rate 27 Blood Gas Modality VENT - AC FiO2 100.0 Blood Gas Tidal Volume 550.0 Blood Gas Inspiratory Pressure 26.0 Blood Gas Critical Value Read Back DR CLARKE Blood Gas Notified Whom MM Blood Gas Notified Time 11/27/2016 5:16:00 AM Differential Comment AUTO w/SCAN Hemoglobin A1c 7.1 H Globulin 2.70 Albumin/Globulin Ratio 1.33 Test 11/27/16 12:00 11/27/16 16:09 Blood Gas Specimen Source Blood arterial Blood arterial Arterial Blood Date Drawn 11/27/2016 12:05:41 PM 11/27/2016 4:09:56 PM Arterial Blood pH (Temp corrected) 7.438 7.433 Arterial Blood pCO2 (Temp correct) 28.5 L 26.4 L Arterial Blood pO2 (Temp corrected) 87.2 181.2 H Arterial Blood HCO3 18.8 L 17.2 L Arterial Blood Base Excess -3.9 L -5.4 L Arterial Blood Oxygen Saturation 96.5 99.0 H Thomas Test N/A N/A Arterial Blood Gas Puncture Site Right Brachial A-Line Arterial Blood Carboxyhemoglobin 0.3 0.3 Arterial Blood Methemoglobin 0.2 0.3 Blood Gas A-a O2 Differential 237.2 H 505.4 H Oxyhemoglobin Percent 96.0 98.4 Total Hemoglobin 14.3 13.8 Blood Gas Temperature 37.0 37.0 Blood Gas Respiration Rate 24.0 24.0 Blood Gas Actual Respiration Rate 24 24 Blood Gas Modality VENT - AC VENT - AC FiO2 50.0 100.0 Blood Gas Tidal Volume 600.0 600.0 Blood Gas High PEEP Setting 5.0 Blood Gas Notified Whom TM CW Blood Gas Notified Time 11/27/2016 12:13:21 PM 11/27/2016 4:18:45 PM Blood Gas Low PEEP Setting 5.0 Medications Medications Current Medications Fentanyl 100 ml @ 2.5 mls/hr TITRATE ONCE IV Last administered on 11/27/16t 04 :21; Admin Dose 2.5 MLS/HR; Start 11/27/16 at 04:00; Stop 11/28/16 at 19:59 Dopamine HCl/ Dextrose 250 ml @ 7.275 mls/ hr TITRATE IV Last administered on 11/27/16 12:18; Admin Dose 49.433 MLS/HR; Start 11/27/16 at 05:00 Pantoprazole 40 mg 40 mg DAILY@06 IV ; Start 11/28/16 at 06:00 Norepinephrine 16 mg/Dextrose 500 ml @ 1.87 mls/hr TITRATE IV Last administered on 11/27/16 10:00; Admin Dose 56.25 MLS/HR; Start 11/27/16 at 09:00 Midazolam HCl 50 ml @ 1 mls/hr TITRATE IV Last administered on 11/27/16 12:34; Admin Dose 7 MLS/HR; Start 11/27/16 at 10:30 Piperacillin Sod/ Tazobactam Sod (Zosyn 3.375gm/ 100 ml (Pmx)) 100 ml @ 200 mls /hr Q8 IVPB Last administered on 11/27/16 11:28; Admin Dose 200 MLS/HR; Start 11/27/16 at 12:00 Acetaminophen (Tylenol Tab) 650 mg Q6H PRN PO PAIN AND OR ELEVATED TEMP; Start 11/27/16 at 12:00 Acetaminophen 650 mg 650 mg Q6H PRN NGT PAIN AND OR ELEVATED TEMP Last administered on 11/27/16 12:13; Admin Dose 650 MG; Start 11/27/16 at 12:00 Sodium Chloride (NS) 1,000 ml @ 100 mls/hr Q10H IV Last administered on 12:33; Admin Dose 100 MLS/HR; Start 11/27/16 at 12:30 Diagnostic Test (Pha) (Accu-Chek) 1 ea Q1H XX ; Start 11/27/16 at 15:30 Dextrose (D50w Syringe) 25 ml Q15M PRN IV Till BS 80 mg/dL or above x2; Start 11/27/16 at 15:30 Dextrose (D50w Syringe) 50 ml Q15M PRN IV Till BS 80 mg/dL or above x2; Start 11/27/16 at 15:30 Heparin Sodium (Porcine) (Heparin (5000 Units/0.5 ml)) 5,000 unit BID SC ; Start 11/27/16 at 21:00 Aspirin (Aspirin) 81 mg DAILY NGT ; Start 11/28/16 at 09:00 WANDY THOMAS MD Nov 27, 2016 17:11
--- NOTE | 2016-11-27 17:23 | OPR ---
Date/Time of Note Date/Time of Note DATE: 11/27/16 TIME: 17:17 Operative Report Procedure Date: Nov 27, 2016 Procedure Description Procedure performed: 1. Left heart catheterization, selective right and left coronary angiogram 2. left femoral angiogram 3. moderate sedation for more than 60 minutes. Hoisting Pile Driving Engineer: Nhi Russell MD Indication:: V. tach cardiac arrest. OK. Cardiogenic shock Findin. Left main coronary artery: Is long and normal. 2. Left anterior descending artery: Its a moderate size vessel and goes around the apex. It has 20 % stenosis proximally, and 20 % stenosis of the mid LAD. 3. Left circumflex artery: Is nondominant. It has 50 % stenosis. 4. Right coronary artery: Is a dominant vessel. It has 70 % stenosis at distal RCA but with SHANTELL III flow 5. LV pressure: 119/27; Aortic pressure by pull back is 27. Written informed consent with obtained after risks benefits and alternatives discussed with the patient's and daughters in detail. risks including but not limited to risk of infection vascular complications, bleeding complications , OK stroke arrhythmia renal failure at even were discussed with the patient in detail. Patient was brought into the cardiac lift slab operator and placed in supine position. Right and left groin area was prepped and draped in regular sterile fashion and then it was anesthetized using 1% lidocaine. Left femoral artery was cannulated and using modified seldinger technique a 6 Uzbek sheath was placed in the left femoral artery. left femoral angiogram was performed. JL4 catheter was advanced and engaged into the left main coronary artery and angiographic view was obtained. The JR4 catheter was advanced and engaged right coronary artery angiographic view was obtained. Pigtail was advanced to engage the left ventricle hemodynamics as recorded by pullback aortic pressure was measured Patient tolerated procedure well with no complication. Patient is to be transferred to recovery room in stable condition. contrast used: 15 cc Conclusions: Moderate coronary artery disease Recommendations: Medical therapy for now given patient's fever and renal failure. NHI RUSSELL MD Nov 27, 2016 17:23
[2016-11-27] MEDS ORDERED: VANCOMYCIN IV PER PHARMACY XX SCH (18:00)
[2016-11-27] MEDS: ACETAMINOPHEN 650MG/20.3ML CUP NGT PRN ×2 (18:21→22:59)
[2016-11-27 18:37] LABS: CK-MB 31.1 ng/ml (0.0-2.4); TROPONIN-I 29.9 ng/ml (0.00-0.12)
[2016-11-27 18:38] LABS: PROTEIN/CREAT RATIO 0.48 RATIO
[2016-11-27] MEDS: INSULIN HUMAN REGULAR 100 UNIT in SOD CHLORIDE 0.9% 99 ML IV SCH ×2 (19:44→23:02)
[2016-11-27] MEDS ORDERED: VANCOMYCIN 2 GM in SOD CHLORIDE 0.9% 500 ML IVPB SCH (20:00)
[2016-11-27 20:25] LABS: CREATININE 3.64 mg/dl (0.61-1.24); MAGNESIUM 1.9 mg/dl (1.7-2.5); PHOSPHORUS 2.4 mg/dl (2.5-4.9); POTASSIUM 3.7 mmol/L (3.5-5.1)
[2016-11-27] MEDS: HEPARIN 5,000 UNIT/0.5 ML VIAL SC SCH (20:34)
[2016-11-28] VITALS (108 sets, daily range): BP systolic 80–175; BP diastolic 56–96; PULSE 92–106; RESP 23–31
[2016-11-28] MEDS: ACCU-CHEK XX SCH ×24 (00:30→23:30)
[2016-11-28 04:33] LABS: ADD SCAN DIFF NO
[2016-11-28 04:39] LABS: BASOPHIL # 0.1 10^3/ul (0.0-0.1); BASOPHILS % 0.2 % (0.0-2.0); EOSINOPHILS % 0.1 % (0.0-7.0); HEMATOCRIT 36.2 % (42.0-52.0); HEMOGLOBIN 12.7 g/dl (14.0-18.0); LYMPHOCYTES # 1.4 10^3/ul (0.8-2.9); LYMPHOCYTES % 6.7 % (15.0-51.0); MEAN CORPUSCULAR HEMOGLOBIN 33.4 pg (29.0-33.0); MEAN CORPUSCULAR HGB CONC 35.1 g/dl (32.0-37.0); MEAN CORPUSCULAR VOLUME 95.3 fl (82.0-101.0); MEAN PLATELET VOLUME 10.9 fl (7.4-10.4); MONOCYTE # 1.1 10^3/ul (0.3-0.9); MONOCYTES % 5.5 % (0.0-11.0); NEUTROPHIL # 17.3 10^3/ul (1.6-7.5); NEUTROPHILS % 86.1 % (39.0-77.0); PLATELET COUNT 222 10^3/UL (140-415); RED CELL DISTRIBUTION WIDTH 12.5 % (11.5-14.5); WHITE BLOOD COUNT 20.2 10^3/ul (4.8-10.8)
[2016-11-28 05:01] LABS: INR 1.53; PARTIAL THROMBOPLASTIN TIME 34.8 Sec (25.0-35.0); PROTIME 18.5 Sec (12.2-14.2); PT RATIO 1.4
[2016-11-28 05:03] LABS: ALBUMIN 3.2 g/dl (3.3-4.9); ALBUMIN/GLOBULIN RATIO 1.14; BILIRUBIN,DIRECT 0.2 mg/dl (0.00-0.20); BILIRUBIN,INDIRECT 0.3 mg/dl (0-1.1); BILIRUBIN,TOTAL 0.5 mg/dl (0.2-1.3); CALCIUM 7.6 mg/dl (8.4-10.2); CHOL/HDL RATIO 5.2 RATIO; CREATININE 4.58 mg/dl (0.61-1.24); POTASSIUM 3.9 mmol/L (3.5-5.1)
[2016-11-28 05:05] LABS: THROMBIN TIME 15.7 SEC (13.8-19.1)
[2016-11-28 05:14] LABS: TROPONIN-I 16.9 ng/ml (0.00-0.12)
[2016-11-28 05:26] LABS: MAGNESIUM 1.8 mg/dl (1.7-2.5); PHOSPHORUS 3.6 mg/dl (2.5-4.9)
[2016-11-28 05:34] LABS: THYROID STIMULATING HORMONE 0.165 MIU/L (0.465-4.680)
[2016-11-28 05:41] LABS: CK-MB 16.4 ng/ml (0.0-2.4)
[2016-11-28] MEDS: PANTOPRAZOLE 40 MG INJ IV SCH (06:17)
[2016-11-28] MEDS: PIPER-TAZO 3.375 GM IV (PMX) 100 ML IVPB SCH ×3 (06:17→21:16)
[2016-11-28] MEDS: MIDAZOLAM (DRIP) 50 mg/50 mL 50 ML IV SCH (06:23)
[2016-11-28] MEDS: DOPamine-D5W 1.6 MG/ML 250 ML IV SCH ×2 (06:23→17:40)
[2016-11-28] MEDS: ACETAMINOPHEN 650MG/20.3ML CUP NGT PRN ×2 (08:47→22:45)
[2016-11-28] MEDS: ASPIRIN 81 MG TAB NGT SCH (08:47)
[2016-11-28] MEDS: HEPARIN 5,000 UNIT/0.5 ML VIAL SC SCH ×2 (08:53→20:40)
--- NOTE | 2016-11-28 09:18 | RADRPT ---
PROCEDURE: XR Chest. CLINICAL INDICATION: Respiratory failure TECHNIQUE: An AP view of the chest was obtained. COMPARISON: Chest x-ray dated 11/27/2016 FINDINGS: The endotracheal tube tip is approximately 2.2 cm above the malathi. The tip of the enteric tube ex tends below the left diaphragm. Lung volumes are low. There is prominence of the interstitial markings. No pleural effusion or p neumothorax is seen. The cardiomediastinal silhouette is moderately enlarged. Calcifications are se en within the aortic arch. The osseous structures demonstrate senescent changes. IMPRESSION: 1. Low lung volumes with findings suggestive of interstitial edema. No significant interval change. 2. Moderate cardiomegaly and aortic atherosclerosis. 3. Tubes and lines, as described above. RPTAT: HH .Elodia Ham MD, Date Time Electronically viewed and signed by .Elodia Ham MD, on 11/28/2016 09:18 .G/
--- NOTE | 2016-11-28 09:37 | PN ---
Date/Time of Note Date/Time of Note DATE: 11/28/16 TIME: 09:28 Assessment/Plan VTE Prophylaxis VTE Prophylaxis Intervention: heparin Lines/Catheters IV Catheter Type (from Nrs): A Line Urinary Cath still in place: Yes Reason Cath still needed: urinary retention Assessment/Plan Chief Complaint/Hosp Course Assessment and plan: 51-year-old male status post cardiac arrest, non-ST elevation CT, renal insufficiency, intubated, on pressor support. 1. Cardiac arrest: s/p LHC yesterday - 70 % stenosis at distal RCA. Off heparin IV drip now. - Continue pressor support, follow cardiology recommendations. - continue insulin drip as well. - per CV team, med mngt 2. Renal failure: Patient's creatinine has gone up from 1.36-> 2.44 -> 4.58. UO is low, pt on IVF's. Seen by renal team. - Continue IV fluids, f/u renal consult rec's - monitor ins and outs, check BMP in the a.m. 3. Respiratory failure: Again patient was intubated in the ER. - Continue duo nebs as needed, follow pulmonary recommendations for vent management 4. Prediabetes: A1c = 7.3 - continue insulin drip as mentioned in #1 5. GI prophylaxis: PPI 6. DVT prophylaxis: Heparin drip 7. Shock -likely combination of septic and cardiogenic shock - sepsis possible source sec to UTI? + Fevers. ECHO = EF = 30%. - continue broad-spectrum antibiotics - continue to trend the white blood cell count, follow final culture results - Tylenol as needed pain and fevers. Critical care time spent today = 45 min. Problems: Subjective 24 Hr Interval Summary Free Text/Dictation Pt had LHC yesterday, seen by renal and CV teams. Still on insulin IV drip and pressor support. Exam/Review of Systems Vital Signs Vitals Vital Signs Date Time Temp Pulse Resp B/P Pulse Ox O2 Delivery O2 Flow Rate FiO2 11/28/16 06:30 102 24 102/67 100 11/28/16 06:00 Mechanical Ventilator 11/28/16 05:51 50 11/28/16 04:00 98.7 Intake and Output 11/27/16 11/27/16 11/28/16 15:00 23:00 07:00 Intake Total 1170.625 ml 1938.963 ml 1493.4 ml Output Total 15 ml 95 ml 175 ml Balance 1155.625 ml 1843.963 ml 1318.4 ml Exam General: Patient is intubated, lying in bed, sedated, on pressors HEENT: unable to fully assess at this time Neck: Supple Respiratory: Distant breath sounds bilaterally Cardiovascular: S1-S2 heard, regular rate and rhythm Abdomen: Soft, nontender, nondistended, no rebound or guarding, normal bowel sounds Muscular skeletal: No lower extremity edema bilaterally Neurologic: Unable to fully assess because patient is intubated and sedated Results Result Diagram: 11/28/16 0400 11/28/16 0400 Results 24 hrs Laboratory Tests Test 11/27/16 10:50 11/27/16 12:00 11/27/16 16:09 11/27/16 16:48 Sodium Level 129 L Potassium Level 4.4 Chloride Level 96 L Carbon Dioxide Level 21 Anion Gap 16 # Blood Urea Nitrogen 23 #H Creatinine 2.44 #H Glucose Level 349 H Calcium Level 7.1 L Total Bilirubin 1.6 H Direct Bilirubin 1.20 #H Indirect Bilirubin 0.4 Aspartate Amino Transf (AST/SGOT) 700 H Alanine Aminotransferase (ALT/SGPT) 610 H Alkaline Phosphatase 112 Ammonia < 9 L Creatine Kinase 963 H Creatine Kinase Index 6.1 Creatinine Kinase MB (Mass) 58.40 H Troponin I 35.700 *H Total Protein 6.3 # Albumin 3.6 Globulin 2.70 Albumin/Globulin Ratio 1.33 Blood Gas Specimen Source Blood arterial Blood arterial Arterial Blood Date Drawn 11/27/2016 12:05:41 PM 11/27/2016 4:09:56 PM Arterial Blood pH (Temp corrected) 7.438 7.433 Arterial Blood pCO2 (Temp correct) 28.5 L 26.4 L Arterial Blood pO2 (Temp corrected) 87.2 181.2 H Arterial Blood HCO3 18.8 L 17.2 L Arterial Blood Base Excess -3.9 L -5.4 L Arterial Blood Oxygen Saturation 96.5 99.0 H Thomas Test N/A N/A Arterial Blood Gas Puncture Site Right Brachial A-Line Arterial Blood Carboxyhemoglobin 0.3 0.3 Arterial Blood Methemoglobin 0.2 0.3 Blood Gas A-a O2 Differential 237.2 H 505.4 H Oxyhemoglobin Percent 96.0 98.4 Total Hemoglobin 14.3 13.8 Blood Gas Temperature 37.0 37.0 Blood Gas Respiration Rate 24.0 24.0 Blood Gas Actual Respiration Rate 24 24 Blood Gas Modality VENT - AC VENT - AC FiO2 50.0 100.0 Blood Gas Tidal Volume 600.0 600.0 Blood Gas High PEEP Setting 5.0 Blood Gas Notified Whom TM CW Blood Gas Notified Time 11/27/2016 12:13:21 PM 11/27/2016 4:18:45 PM Blood Gas Low PEEP Setting 5.0 Bedside Glucose 312 H Test 11/27/16 17:23 11/27/16 17:30 11/27/16 18:23 11/27/16 19:42 Bedside Glucose 298 H 284 H 223 H Activated Partial Thromboplast Time 48.3 H Creatine Kinase 833 H Creatine Kinase Index 3.7 Creatinine Kinase MB (Mass) 31.10 H Troponin I 29.900 *H Test 11/27/16 20:00 11/27/16 20:30 11/27/16 22:05 11/27/16 22:53 Sodium Level 131 L Potassium Level 3.7 Chloride Level 102 Carbon Dioxide Level 18 L Anion Gap 15 Blood Urea Nitrogen 29 H Creatinine 3.64 #H Glucose Level 251 H Calcium Level 7.0 L Phosphorus Level 2.4 L Magnesium Level 1.9 Bedside Glucose 233 H 165 196 Test 11/27/16 23:50 11/28/16 02:11 11/28/16 04:00 11/28/16 04:18 Bedside Glucose 157 149 128 White Blood Count 20.2 H Red Blood Count 3.80 L Hemoglobin 12.7 L Hematocrit 36.2 L Mean Corpuscular Volume 95.3 Mean Corpuscular Hemoglobin 33.4 H Mean Corpuscular Hemoglobin Concent 35.1 Red Cell Distribution Width 12.5 Platelet Count 222 Mean Platelet Volume 10.9 H Neutrophils % 86.1 H Lymphocytes % 6.7 L Monocytes % 5.5 Eosinophils % 0.1 Basophils % 0.2 Nucleated Red Blood Cells % 0.0 Neutrophils # 17.3 H Lymphocytes # 1.4 Monocytes # 1.1 H Eosinophils # 0.0 Basophils # 0.1 Nucleated Red Blood Cells # 0.0 Prothrombin Time 18.5 H Prothrombin Time Ratio 1.4 INR International Normalized Ratio 1.53 Activated Partial Thromboplast Time 34.8 Thrombin Time 15.7 Sodium Level 137 Potassium Level 3.9 Chloride Level 102 Carbon Dioxide Level 17 L Anion Gap 22 #H Blood Urea Nitrogen 31 H Creatinine 4.58 H Glucose Level 153 Hemoglobin A1c 7.3 H Lactic Acid Level 1.8 Calcium Level 7.6 L Phosphorus Level 3.6 Magnesium Level 1.8 Total Bilirubin 0.5 Direct Bilirubin 0.20 # Indirect Bilirubin 0.3 Aspartate Amino Transf (AST/SGOT) 268 #H Alanine Aminotransferase (ALT/SGPT) 495 H Alkaline Phosphatase 106 Creatine Kinase 971 H Creatine Kinase Index 1.7 Creatinine Kinase MB (Mass) 16.40 H Troponin I 16.900 *H B-Type Natriuretic Peptide 65248 H Total Protein 6.0 L Albumin 3.2 L Globulin 2.80 Albumin/Globulin Ratio 1.14 Triglycerides Level 170 H Cholesterol Level 78 L LDL Cholesterol, Calculated 29 HDL Cholesterol 15 L Cholesterol/HDL Ratio 5.2 Thyroid Stimulating Hormone (TSH) 0.165 L Free Thyroxine 1.14 Test 11/28/16 06:15 11/28/16 07:57 11/28/16 08:50 Bedside Glucose 104 141 121 Medications Medications Current Medications Fentanyl 100 ml @ 2.5 mls/hr TITRATE ONCE IV Last administered on 11/27/16 04 :21; Admin Dose 2.5 MLS/HR; Start 11/27/16 at 04:00; Stop 11/28/16 at 19:59 Dopamine HCl/ Dextrose 250 ml @ 7.275 mls/ hr TITRATE IV Last administered on 11/28/16 06:23; Admin Dose 21.825 MLS/HR; Start 11/27/16 at 05:00 Pantoprazole 40 mg 40 mg DAILY@06 IV Last administered on 11/28/16 06:17; Admin Dose 40 MG; Start 11/28/16 at 06:00 Norepinephrine 16 mg/Dextrose 500 ml @ 1.87 mls/hr TITRATE IV Last administered on 11/28/16 05:28; Admin Dose 30 MLS/HR; Start 11/27/16 at 09:00 Midazolam HCl 50 ml @ 1 mls/hr TITRATE IV Last administered on 11/28/16 06:23; Admin Dose 5 MLS/HR; Start 11/27/16 at 10:30 Piperacillin Sod/ Tazobactam Sod (Zosyn 3.375gm/ 100 ml (Pmx)) 100 ml @ 200 mls /hr Q8 IVPB Last administered on 11/28/16 06:17; Admin Dose 200 MLS/HR; Start 11/27/16 at 12:00 Acetaminophen 650 mg 650 mg Q6H PRN PO PAIN AND OR ELEVATED TEMP; Start at 12:00 Sodium Chloride (NS) 1,000 ml @ 100 mls/hr Q10H IV Last administered on 21:58; Admin Dose 100 MLS/HR; Start 11/27/16 at 12:30 Diagnostic Test (Pha) (Accu-Chek) 1 ea Q1H XX Last administered on 11/28/16 08: 55; Admin Dose 1 EA; Start 11/27/16 at 15:30 Dextrose (D50w Syringe) 25 ml Q15M PRN IV Till BS 80 mg/dL or above x2; Start 11/27/16 at 15:30 Dextrose (D50w Syringe) 50 ml Q15M PRN IV Till BS 80 mg/dL or above x2; Start 11/27/16 at 15:30 Heparin Sodium (Porcine) (Heparin (5000 Units/0.5 ml)) 5,000 unit BID SC Last administered on 11/28/16 08:53; Admin Dose 5,000 UNIT; Start 11/27/16 at 21:00 Aspirin (Aspirin) 81 mg DAILY NGT Last administered on 11/28/16 08:47; Admin Dose 81 MG; Start 11/28/16 at 09:00 Acetaminophen 650 mg 650 mg Q4H PRN NGT PAIN AND OR ELEVATED TEMP Last administered on 11/28/16 08:47; Admin Dose 650 MG; Start 11/27/16 at 17:32 Vancomycin HCl 250 ml @ 125 mls/hr Q24H IVPB ; Start 11/28/16 at 21:00 Fluconazole/ Sodium Chloride (Diflucan 100 Mg/ NS (Pmx)) 50 ml @ 50 mls/hr Q24H IVPB ; Start 11/28/16 at 09:30; Status UNV Procedures Procedures 2D ECHO: Conclusions 1. Normal left ventricular systolic function. Normal left ventricular cavity size. Normal left ventricular wall thickness. Ejection fraction is visually estimated at 30 %. Multiple segmental wall motion abnormalities. 2. The left atrium is normal in size. 3. Mitral valve leaflets appear mildly thickened. Mild mitral annular calcification. Mild mitral valve regurgitation. 4. Aortic cusps appear mildly calcified. Mild aortic valve regurgitation. 5. Normal appearance of the tricuspid valve. Estimated peak PA systolic pressure 37 mmHg. There is mild tricuspid regurgitation. 6. Inferior vena cava without respiratory collapse, however, patient on ventilator. TALIA LANGE. Nov 28, 2016 09:37
[2016-11-28] MEDS: SOD CHLORIDE 0.9% 1,000 ML IV SCH (10:06)
[2016-11-28] MEDS: FLUCONAZOLE 100 MG/NS (PMX) 50 ML IVPB SCH (10:36)
--- NOTE | 2016-11-28 10:36 | CONS ---
Date/Time of Note Date/Time of Note DATE: 11/28/16 TIME: 10:32 Consult Date/Type/Reason Admit Date/Time Nov 27, 2016 at 05:46 Initial Consult Date 11/27/16 Type of Consultation: Pulmonary ICU Ordering Provider: TALIA LANGE Subjective Patient remains intubated on mechanical ventilation appears somnolent. Continues mild sedation in addition to vasopressors of dopamine and Levophed. Febrile T-max of 102.6. Objective Vital Signs Date Time Temp Pulse Resp B/P Pulse Ox O2 Delivery O2 Flow Rate FiO2 11/28/16 08:00 103 11/28/16 06:30 24 102/67 100 11/28/16 06:00 Mechanical Ventilator 11/28/16 05:51 50 11/28/16 04:00 98.7 Intake and Output 11/27/16 11/27/16 11/28/16 15:00 23:00 07:00 Intake Total 1170.625 ml 1938.963 ml 1493.4 ml Output Total 15 ml 95 ml 175 ml Balance 1155.625 ml 1843.963 ml 1318.4 ml Exam PHYSICAL EXAMINATION GENERAL: Moderately obese gentleman orally intubated. VITAL SIGNS: see below. HEENT: Pupils equal, round, and reactive to light. CARDIAC: S1, S2, 1/6 systolic ejection murmur CHEST: Diminished air entry bilaterally. ABDOMEN: Mildly distended. Bowel sounds present no guarding or rebound EXTREMITIES: No cyanosis, clubbing edema +1 NEUROLOGIC: Generalized weakness Results/Medications Result Diagram: 11/28/16 0400 11/28/16 0400 Results 24 hrs Chest x-ray shows pulmonary edema. Possible underlying infiltrates. Laboratory Tests Test 11/27/16 10:50 11/27/16 12:00 11/27/16 16:09 11/27/16 16:48 Sodium Level 129 L Potassium Level 4.4 Chloride Level 96 L Carbon Dioxide Level 21 Anion Gap 16 # Blood Urea Nitrogen 23 #H Creatinine 2.44 #H Glucose Level 349 H Calcium Level 7.1 L Total Bilirubin 1.6 H Direct Bilirubin 1.20 #H Indirect Bilirubin 0.4 Aspartate Amino Transf (AST/SGOT) 700 H Alanine Aminotransferase (ALT/SGPT) 610 H Alkaline Phosphatase 112 Ammonia < 9 L Creatine Kinase 963 H Creatine Kinase Index 6.1 Creatinine Kinase MB (Mass) 58.40 H Troponin I 35.700 *H Total Protein 6.3 # Albumin 3.6 Globulin 2.70 Albumin/Globulin Ratio 1.33 Blood Gas Specimen Source Blood arterial Blood arterial Arterial Blood Date Drawn 11/27/2016 12:05:41 PM 11/27/2016 4:09:56 PM Arterial Blood pH (Temp corrected) 7.438 7.433 Arterial Blood pCO2 (Temp correct) 28.5 L 26.4 L Arterial Blood pO2 (Temp corrected) 87.2 181.2 H Arterial Blood HCO3 18.8 L 17.2 L Arterial Blood Base Excess -3.9 L -5.4 L Arterial Blood Oxygen Saturation 96.5 99.0 H Thomas Test N/A N/A Arterial Blood Gas Puncture Site Right Brachial A-Line Arterial Blood Carboxyhemoglobin 0.3 0.3 Arterial Blood Methemoglobin 0.2 0.3 Blood Gas A-a O2 Differential 237.2 H 505.4 H Oxyhemoglobin Percent 96.0 98.4 Total Hemoglobin 14.3 13.8 Blood Gas Temperature 37.0 37.0 Blood Gas Respiration Rate 24.0 24.0 Blood Gas Actual Respiration Rate 24 24 Blood Gas Modality VENT - AC VENT - AC FiO2 50.0 100.0 Blood Gas Tidal Volume 600.0 600.0 Blood Gas High PEEP Setting 5.0 Blood Gas Notified Whom TM CW Blood Gas Notified Time 11/27/2016 12:13:21 PM 11/27/2016 4:18:45 PM Blood Gas Low PEEP Setting 5.0 Bedside Glucose 312 H Test 11/27/16 17:23 11/27/16 17:30 11/27/16 18:23 11/27/16 19:42 Bedside Glucose 298 H 284 H 223 H Activated Partial Thromboplast Time 48.3 H Creatine Kinase 833 H Creatine Kinase Index 3.7 Creatinine Kinase MB (Mass) 31.10 H Troponin I 29.900 *H Test 11/27/16 20:00 11/27/16 20:30 11/27/16 22:05 11/27/16 22:53 Sodium Level 131 L Potassium Level 3.7 Chloride Level 102 Carbon Dioxide Level 18 L Anion Gap 15 Blood Urea Nitrogen 29 H Creatinine 3.64 #H Glucose Level 251 H Calcium Level 7.0 L Phosphorus Level 2.4 L Magnesium Level 1.9 Bedside Glucose 233 H 165 196 Test 11/27/16 23:50 11/28/16 02:11 11/28/16 04:00 11/28/16 04:18 Bedside Glucose 157 149 128 White Blood Count 20.2 H Red Blood Count 3.80 L Hemoglobin 12.7 L Hematocrit 36.2 L Mean Corpuscular Volume 95.3 Mean Corpuscular Hemoglobin 33.4 H Mean Corpuscular Hemoglobin Concent 35.1 Red Cell Distribution Width 12.5 Platelet Count 222 Mean Platelet Volume 10.9 H Neutrophils % 86.1 H Lymphocytes % 6.7 L Monocytes % 5.5 Eosinophils % 0.1 Basophils % 0.2 Nucleated Red Blood Cells % 0.0 Neutrophils # 17.3 H Lymphocytes # 1.4 Monocytes # 1.1 H Eosinophils # 0.0 Basophils # 0.1 Nucleated Red Blood Cells # 0.0 Prothrombin Time 18.5 H Prothrombin Time Ratio 1.4 INR International Normalized Ratio 1.53 Activated Partial Thromboplast Time 34.8 Thrombin Time 15.7 Sodium Level 137 Potassium Level 3.9 Chloride Level 102 Carbon Dioxide Level 17 L Anion Gap 22 #H Blood Urea Nitrogen 31 H Creatinine 4.58 H Glucose Level 153 Hemoglobin A1c 7.3 H Lactic Acid Level 1.8 Calcium Level 7.6 L Phosphorus Level 3.6 Magnesium Level 1.8 Total Bilirubin 0.5 Direct Bilirubin 0.20 # Indirect Bilirubin 0.3 Aspartate Amino Transf (AST/SGOT) 268 #H Alanine Aminotransferase (ALT/SGPT) 495 H Alkaline Phosphatase 106 Creatine Kinase 971 H Creatine Kinase Index 1.7 Creatinine Kinase MB (Mass) 16.40 H Troponin I 16.900 *H B-Type Natriuretic Peptide 37123 H Total Protein 6.0 L Albumin 3.2 L Globulin 2.80 Albumin/Globulin Ratio 1.14 Triglycerides Level 170 H Cholesterol Level 78 L LDL Cholesterol, Calculated 29 HDL Cholesterol 15 L Cholesterol/HDL Ratio 5.2 Thyroid Stimulating Hormone (TSH) 0.165 L Free Thyroxine 1.14 Test 11/28/16 06:15 11/28/16 07:57 11/28/16 08:50 11/28/16 10:04 Bedside Glucose 104 141 121 128 Medications Current Medications Fentanyl 100 ml @ 2.5 mls/hr TITRATE ONCE IV Last administered on 11/27/16t 04 :21; Admin Dose 2.5 MLS/HR; Start 11/27/16 at 04:00; Stop 11/28/16 at 19:59 Dopamine HCl/ Dextrose 250 ml @ 7.275 mls/ hr TITRATE IV Last administered on 11/28/16 06:23; Admin Dose 21.825 MLS/HR; Start 11/27/16 at 05:00 Pantoprazole 40 mg 40 mg DAILY@06 IV Last administered on 11/28/16 06:17; Admin Dose 40 MG; Start 11/28/16 at 06:00 Norepinephrine 16 mg/Dextrose 500 ml @ 1.87 mls/hr TITRATE IV Last administered on 11/28/16 05:28; Admin Dose 30 MLS/HR; Start 11/27/16 at 09:00 Midazolam HCl 50 ml @ 1 mls/hr TITRATE IV Last administered on 11/28/16 06:23; Admin Dose 5 MLS/HR; Start 11/27/16 at 10:30 Piperacillin Sod/ Tazobactam Sod (Zosyn 3.375gm/ 100 ml (Pmx)) 100 ml @ 200 mls /hr Q8 IVPB Last administered on 11/28/16 06:17; Admin Dose 200 MLS/HR; Start 11/27/16 at 12:00 Acetaminophen 650 mg 650 mg Q6H PRN PO PAIN AND OR ELEVATED TEMP; Start at 12:00 Sodium Chloride (NS) 1,000 ml @ 100 mls/hr Q10H IV Last administered on 21:58; Admin Dose 100 MLS/HR; Start 11/27/16 at 12:30 Diagnostic Test (Pha) (Accu-Chek) 1 ea Q1H XX Last administered on 11/28/16 08: 55; Admin Dose 1 EA; Start 11/27/16 at 15:30 Dextrose (D50w Syringe) 25 ml Q15M PRN IV Till BS 80 mg/dL or above x2; Start 11/27/16 at 15:30 Dextrose (D50w Syringe) 50 ml Q15M PRN IV Till BS 80 mg/dL or above x2; Start 11/27/16 at 15:30 Heparin Sodium (Porcine) (Heparin (5000 Units/0.5 ml)) 5,000 unit BID SC Last administered on 11/28/16 08:53; Admin Dose 5,000 UNIT; Start 11/27/16 at 21:00 Aspirin (Aspirin) 81 mg DAILY NGT Last administered on 11/28/16 08:47; Admin Dose 81 MG; Start 11/28/16 at 09:00 Acetaminophen 650 mg 650 mg Q4H PRN NGT PAIN AND OR ELEVATED TEMP Last administered on 11/28/16 08:47; Admin Dose 650 MG; Start 11/27/16 at 17:32 Fluconazole/ Sodium Chloride (Diflucan 100 Mg/ NS (Pmx)) 50 ml @ 50 mls/hr Q24H IVPB ; Start 11/28/16 at 10:15 Miscellaneous Information (*Rx Drug Level Order Reminder*) 1 ONCE ONCE XX ; Start 11/29/16 at 05:00; Stop 11/29/16 at 05:01 Assessment/Plan Chief Complaint/Hosp Course Assessment 1. Ventricular fibrillation with cardiac arrest. 2. Possible underlying coronary artery disease. Echocardiogram shows decreased ejection fraction with multiple wall motion abnormalities. 3. Possible aspiration pneumonia. Septic shock. 4. Hypoxemic respiratory failure secondary to above. 5. Acute renal failure likely ATN injury from hypoperfusion. 6. Significant metabolic acidosis. Slowly improving. Plan 1. Continue mechanical ventilation 2. Intravenous bicarbonate, renal recommendations 3. Broad-spectrum antibiotics for possible aspiration pneumonia, await cultures 4. Continue cardiac recommendations, cardiac catheterization if stabilizes 5. DVT and GI prophylaxis 6. Consider neurology evaluation patient's neurological status does not improve. 7. Continue vasopressor support Disposition Continue ICU care No stable for transfer to [facility] given multiple vasopressors Discussed with patient's at bedside. community health worker to help family obtain his medical notes from [facility]. Critical care time 40 minutes. Problems: STEVE PLAZA MD, [facility] Nov 28, 2016 10:36
--- NOTE | 2016-11-28 10:48 | CONS ---
Date/Time of Note Date/Time of Note DATE: 11/28/16 TIME: 10:46 Assessment/Plan Assessment/Plan Chief Complaint/Hosp Course Pt admitted with V-fib cardiac arrest hypotensive and has remained on pressors with knon "liver dz" and hx elevated sugar. Problems: Additional Assessment/Plan 1. Acute renal failure sec to atn, low BP and needed dye. 2. Vol expanded, will dec iv and try to diurese observing BP and need for more pressors Consultation Date/Type/Reason Admit Date/Time Nov 27, 2016 at 05:46 Initial Consult Date 11/27/16 Type of Consultation: Pulmonary ICU Referring Provider: TALIA LANGE 24 HR Interval Summary Subjective hx not possible: other (intubated and sedated) Exam/Review of Systems Vital Signs Vitals Vital Signs Date Time Temp Pulse Resp B/P Pulse Ox O2 Delivery O2 Flow Rate FiO2 11/28/16 08:00 103 11/28/16 06:30 24 102/67 100 11/28/16 06:00 Mechanical Ventilator 11/28/16 05:51 50 11/28/16 04:00 98.7 Intake and Output 11/27/16 11/27/16 11/28/16 15:00 23:00 07:00 Intake Total 1170.625 ml 1938.963 ml 1493.4 ml Output Total 15 ml 95 ml 175 ml Balance 1155.625 ml 1843.963 ml 1318.4 ml Exam Neck: No jvd Respiratory: diminished breath sounds Cardiovascular: regular rate and rhythm Gastrointestinal: soft, No distended Extremities: clubbing, No edema Results Result Diagram: 11/28/16 0400 11/28/16 0400 Results 24 hrs Laboratory Tests Test 11/27/16 10:50 11/27/16 12:00 11/27/16 16:09 11/27/16 16:48 Sodium Level 129 L Potassium Level 4.4 Chloride Level 96 L Carbon Dioxide Level 21 Anion Gap 16 # Blood Urea Nitrogen 23 #H Creatinine 2.44 #H Glucose Level 349 H Calcium Level 7.1 L Total Bilirubin 1.6 H Direct Bilirubin 1.20 #H Indirect Bilirubin 0.4 Aspartate Amino Transf (AST/SGOT) 700 H Alanine Aminotransferase (ALT/SGPT) 610 H Alkaline Phosphatase 112 Ammonia < 9 L Creatine Kinase 963 H Creatine Kinase Index 6.1 Creatinine Kinase MB (Mass) 58.40 H Troponin I 35.700 *H Total Protein 6.3 # Albumin 3.6 Globulin 2.70 Albumin/Globulin Ratio 1.33 Blood Gas Specimen Source Blood arterial Blood arterial Arterial Blood Date Drawn 11/27/2016 12:05:41 PM 11/27/2016 4:09:56 PM Arterial Blood pH (Temp corrected) 7.438 7.433 Arterial Blood pCO2 (Temp correct) 28.5 L 26.4 L Arterial Blood pO2 (Temp corrected) 87.2 181.2 H Arterial Blood HCO3 18.8 L 17.2 L Arterial Blood Base Excess -3.9 L -5.4 L Arterial Blood Oxygen Saturation 96.5 99.0 H Thomas Test N/A N/A Arterial Blood Gas Puncture Site Right Brachial A-Line Arterial Blood Carboxyhemoglobin 0.3 0.3 Arterial Blood Methemoglobin 0.2 0.3 Blood Gas A-a O2 Differential 237.2 H 505.4 H Oxyhemoglobin Percent 96.0 98.4 Total Hemoglobin 14.3 13.8 Blood Gas Temperature 37.0 37.0 Blood Gas Respiration Rate 24.0 24.0 Blood Gas Actual Respiration Rate 24 24 Blood Gas Modality VENT - AC VENT - AC FiO2 50.0 100.0 Blood Gas Tidal Volume 600.0 600.0 Blood Gas High PEEP Setting 5.0 Blood Gas Notified Whom TM CW Blood Gas Notified Time 11/27/2016 12:13:21 PM 11/27/2016 4:18:45 PM Blood Gas Low PEEP Setting 5.0 Bedside Glucose 312 H Test 11/27/16 17:23 11/27/16 17:30 11/27/16 18:23 11/27/16 19:42 Bedside Glucose 298 H 284 H 223 H Activated Partial Thromboplast Time 48.3 H Creatine Kinase 833 H Creatine Kinase Index 3.7 Creatinine Kinase MB (Mass) 31.10 H Troponin I 29.900 *H Test 11/27/16 20:00 11/27/16 20:30 11/27/16 22:05 11/27/16 22:53 Sodium Level 131 L Potassium Level 3.7 Chloride Level 102 Carbon Dioxide Level 18 L Anion Gap 15 Blood Urea Nitrogen 29 H Creatinine 3.64 #H Glucose Level 251 H Calcium Level 7.0 L Phosphorus Level 2.4 L Magnesium Level 1.9 Bedside Glucose 233 H 165 196 Test 11/27/16 23:50 11/28/16 02:11 11/28/16 04:00 11/28/16 04:18 Bedside Glucose 157 149 128 White Blood Count 20.2 H Red Blood Count 3.80 L Hemoglobin 12.7 L Hematocrit 36.2 L Mean Corpuscular Volume 95.3 Mean Corpuscular Hemoglobin 33.4 H Mean Corpuscular Hemoglobin Concent 35.1 Red Cell Distribution Width 12.5 Platelet Count 222 Mean Platelet Volume 10.9 H Neutrophils % 86.1 H Lymphocytes % 6.7 L Monocytes % 5.5 Eosinophils % 0.1 Basophils % 0.2 Nucleated Red Blood Cells % 0.0 Neutrophils # 17.3 H Lymphocytes # 1.4 Monocytes # 1.1 H Eosinophils # 0.0 Basophils # 0.1 Nucleated Red Blood Cells # 0.0 Prothrombin Time 18.5 H Prothrombin Time Ratio 1.4 INR International Normalized Ratio 1.53 Activated Partial Thromboplast Time 34.8 Thrombin Time 15.7 Sodium Level 137 Potassium Level 3.9 Chloride Level 102 Carbon Dioxide Level 17 L Anion Gap 22 #H Blood Urea Nitrogen 31 H Creatinine 4.58 H Glucose Level 153 Hemoglobin A1c 7.3 H Lactic Acid Level 1.8 Calcium Level 7.6 L Phosphorus Level 3.6 Magnesium Level 1.8 Total Bilirubin 0.5 Direct Bilirubin 0.20 # Indirect Bilirubin 0.3 Aspartate Amino Transf (AST/SGOT) 268 #H Alanine Aminotransferase (ALT/SGPT) 495 H Alkaline Phosphatase 106 Creatine Kinase 971 H Creatine Kinase Index 1.7 Creatinine Kinase MB (Mass) 16.40 H Troponin I 16.900 *H B-Type Natriuretic Peptide 93716 H Total Protein 6.0 L Albumin 3.2 L Globulin 2.80 Albumin/Globulin Ratio 1.14 Triglycerides Level 170 H Cholesterol Level 78 L LDL Cholesterol, Calculated 29 HDL Cholesterol 15 L Cholesterol/HDL Ratio 5.2 Thyroid Stimulating Hormone (TSH) 0.165 L Free Thyroxine 1.14 Test 11/28/16 06:15 11/28/16 07:57 11/28/16 08:50 11/28/16 10:04 Bedside Glucose 104 141 121 128 Medications Medications Current Medications Fentanyl 100 ml @ 2.5 mls/hr TITRATE ONCE IV Last administered on 11/27/16t 04 :21; Admin Dose 2.5 MLS/HR; Start 11/27/16 at 04:00; Stop 11/28/16 at 19:59 Dopamine HCl/ Dextrose 250 ml @ 7.275 mls/ hr TITRATE IV Last administered on 11/28/16 06:23; Admin Dose 21.825 MLS/HR; Start 11/27/16 at 05:00 Pantoprazole 40 mg 40 mg DAILY@06 IV Last administered on 11/28/16 06:17; Admin Dose 40 MG; Start 11/28/16 at 06:00 Norepinephrine 16 mg/Dextrose 500 ml @ 1.87 mls/hr TITRATE IV Last administered on 11/28/16 05:28; Admin Dose 30 MLS/HR; Start 11/27/16 at 09:00 Midazolam HCl 50 ml @ 1 mls/hr TITRATE IV Last administered on 11/28/16 06:23; Admin Dose 5 MLS/HR; Start 11/27/16 at 10:30 Piperacillin Sod/ Tazobactam Sod (Zosyn 3.375gm/ 100 ml (Pmx)) 100 ml @ 200 mls /hr Q8 IVPB Last administered on 11/28/16 06:17; Admin Dose 200 MLS/HR; Start 11/27/16 at 12:00 Acetaminophen 650 mg 650 mg Q6H PRN PO PAIN AND OR ELEVATED TEMP; Start at 12:00 Sodium Chloride (NS) 1,000 ml @ 20 mls/hr Q24H IV Last administered on 10:06; Admin Dose 100 MLS/HR; Start 11/27/16 at 12:30 Diagnostic Test (Pha) (Accu-Chek) 1 ea Q1H XX Last administered on 11/28/16 10: 05; Admin Dose 1 EA; Start 11/27/16 at 15:30 Dextrose (D50w Syringe) 25 ml Q15M PRN IV Till BS 80 mg/dL or above x2; Start 11/27/16 at 15:30 Dextrose (D50w Syringe) 50 ml Q15M PRN IV Till BS 80 mg/dL or above x2; Start 11/27/16 at 15:30 Heparin Sodium (Porcine) (Heparin (5000 Units/0.5 ml)) 5,000 unit BID SC Last administered on 11/28/16 08:53; Admin Dose 5,000 UNIT; Start 11/27/16 at 21:00 Aspirin (Aspirin) 81 mg DAILY NGT Last administered on 11/28/16 08:47; Admin Dose 81 MG; Start 11/28/16 at 09:00 Acetaminophen 650 mg 650 mg Q4H PRN NGT PAIN AND OR ELEVATED TEMP Last administered on 11/28/16 08:47; Admin Dose 650 MG; Start 11/27/16 at 17:32 Fluconazole/ Sodium Chloride (Diflucan 100 Mg/ NS (Pmx)) 50 ml @ 50 mls/hr Q24H IVPB Last administered on 11/28/16 10:36; Admin Dose 50 MLS/HR; Start 11/28/16 at 10:15 Miscellaneous Information 1 ONCE ONCE XX ; Start 11/29/16 at 05:00; Stop at 05:01 Bumetanide/ Dextrose/Water (Bumex/D5W) 120 ml @ 10 mls/hr Q12H ONCE IV ; Start 11/28/16 at 11:00; Stop 11/28/16 at 22:59; Status WANDY AUSTIN MD Nov 28, 2016 10:47
[2016-11-28 10:54] LABS: AADO2 Arterial 234.5 mmHg (7.0-24.0); Arterial Base Excess -4.9 mmol/L (-3.0-3); Arterial COHb 0.3 % (0.0-3.0); Arterial Fraction of Oxyhgb 96.3 % (93.0-99.0); Arterial HCO3 17.5 mmol/L (22.0-26.0); Arterial MetHb 0.3 % (0.0-1.5); Arterial Total Hemglobin 14.1 g/dl (12.0-18.0); MODE VENT - AC
[2016-11-28 10:54] LABS: AADO2 Arterial 236.6 mmHg (7.0-24.0); Arterial Base Excess -6.9 mmol/L (-3.0-3); Arterial COHb 0.3 % (0.0-3.0); Arterial HCO3 16.3 mmol/L (22.0-26.0); Arterial MetHb 0.3 % (0.0-1.5); Arterial Total Hemglobin 13.2 g/dl (12.0-18.0); MODE VENT - AC
[2016-11-28] MEDS ORDERED: BUMETANIDE 12 MG in DEXTROSE 5% 72 ML IV ONE (12:30)
--- NOTE | 2016-11-28 13:29 | PN ---
Date/Time of Note Date/Time of Note DATE: 11/28/16 TIME: 13:23 Assessment/Plan VTE Prophylaxis VTE Prophylaxis Intervention: heparin Lines/Catheters IV Catheter Type (from Nrs): A Line Central line still needed: Yes Urinary Cath still in place: Yes Reason Cath still needed: other (indicate) Assessment/Plan Chief Complaint/Hosp Course 1. acute [place] 2. VT cardiac arrest 3. shock: cardiogenic +/- septic 4. Afib 5. CHF: class IV 6. Acute hypoxemic resp failure 7. encephalopathy 8. ACUTE RENAL FAILURE: due to ATN ( doubt due to contrast since only 15 cc was used and pt had already been anuric and with acute elevation of creatinine prio to the angiogram). 9. DM 10. elevated LFT 11. recurrent FEVER & SEPSIS 12. SEVERE CARDIOMYOPATHY 13. moderate CAD ASA off of Heparin drip for now vent support cont pressors. echo reviewed pt with severe LV dysfx. replace lytes prn mucomyst IV renal consult is appreciated. diuresis as per renal. Antibiotic has been started by her medicine pulmonary vent support will be continued continue the ICU care. more than 40 minutes critical care time was reminded she is patient's including procedures. Problems: Subjective 24 Hr Interval Summary Free Text/Dictation d/w staff and physicians. d/w daughter. pt remains intubated on vent in ICU and on 2 pressors. nonverbral pt with minimal urine output. pt remains in NSR. meds reviewed. General: obese man intubated on vent. nonresponsive but sedated. HEENT: NC/AT. pupils are constricted. round. s/p intubation on vent NECK: . no stridor. CV: irregularly irregualr. systolic murmur; no gallop or rubs. PULM: diffuse rhonchi. GI: obese soft , NT, ND, no rebound or guarding Extremity: + B/L LE edema. no clubbing. neuro: unresponsive. Psych: calm rectal: deferred : + scrotal. Exam/Review of Systems Vital Signs Vitals Vital Signs Date Time Temp Pulse Resp B/P Pulse Ox O2 Delivery O2 Flow Rate FiO2 11/28/16 10:58 105 24 98 50 11/28/16 06:30 102/67 11/28/16 06:00 Mechanical Ventilator 11/28/16 04:00 98.7 Intake and Output 11/27/16 11/27/16 11/28/16 15:00 23:00 07:00 Intake Total 1170.625 ml 1938.963 ml 1493.4 ml Output Total 15 ml 95 ml 175 ml Balance 1155.625 ml 1843.963 ml 1318.4 ml Results Result Diagram: 11/28/16 0400 11/28/16 0400 Results 24 hrs Laboratory Tests Test 11/27/16 16:09 11/27/16 16:48 11/27/16 17:23 11/27/16 17:30 Blood Gas Specimen Source Blood arterial Arterial Blood Date Drawn 11/27/2016 4:09:56 PM Arterial Blood pH (Temp corrected) 7.433 Arterial Blood pCO2 (Temp correct) 26.4 L Arterial Blood pO2 (Temp corrected) 181.2 H Arterial Blood HCO3 17.2 L Arterial Blood Base Excess -5.4 L Arterial Blood Oxygen Saturation 99.0 H Thomas Test N/A Arterial Blood Gas Puncture Site A-Line Arterial Blood Carboxyhemoglobin 0.3 Arterial Blood Methemoglobin 0.3 Blood Gas A-a O2 Differential 505.4 H Oxyhemoglobin Percent 98.4 Total Hemoglobin 13.8 Blood Gas Temperature 37.0 Blood Gas Respiration Rate 24.0 Blood Gas Actual Respiration Rate 24 Blood Gas Modality VENT - AC FiO2 100.0 Blood Gas Tidal Volume 600.0 Blood Gas Low PEEP Setting 5.0 Blood Gas Notified Whom CW Blood Gas Notified Time 11/27/2016 4:18:45 PM Bedside Glucose 312 H 298 H Activated Partial Thromboplast Time 48.3 H Creatine Kinase 833 H Creatine Kinase Index 3.7 Creatinine Kinase MB (Mass) 31.10 H Troponin I 29.900 *H Test 11/27/16 18:23 11/27/16 19:42 11/27/16 20:00 11/27/16 20:30 Bedside Glucose 284 H 223 H 233 H Sodium Level 131 L Potassium Level 3.7 Chloride Level 102 Carbon Dioxide Level 18 L Anion Gap 15 Blood Urea Nitrogen 29 H Creatinine 3.64 #H Glucose Level 251 H Calcium Level 7.0 L Phosphorus Level 2.4 L Magnesium Level 1.9 Test 11/27/16 22:05 11/27/16 22:53 11/27/16 23:50 11/28/16 02:11 Bedside Glucose 165 196 157 149 Test 11/28/16 03:58 11/28/16 04:00 11/28/16 04:18 11/28/16 06:15 Blood Gas Specimen Source Blood arterial Arterial Blood Date Drawn 11/28/2016 4:00:31 AM Arterial Blood pH (Temp corrected) 7.442 Arterial Blood pCO2 (Temp correct) 26.2 L Arterial Blood pO2 (Temp corrected) 92.5 Arterial Blood HCO3 17.5 L Arterial Blood Base Excess -4.9 L Arterial Blood Oxygen Saturation 96.9 Thomas Test N/A Arterial Blood Gas Puncture Site A-Line Arterial Blood Carboxyhemoglobin 0.3 Arterial Blood Methemoglobin 0.3 Blood Gas A-a O2 Differential 234.5 H Oxyhemoglobin Percent 96.3 Total Hemoglobin 14.1 Blood Gas Temperature 37.0 Blood Gas Respiration Rate 24.0 Blood Gas Actual Respiration Rate 24 Blood Gas Modality VENT - AC FiO2 50.0 Blood Gas Tidal Volume 600.0 Blood Gas Low PEEP Setting 5.0 Blood Gas Notified Whom UP Blood Gas Notified Time 11/28/2016 4:17:45 AM White Blood Count 20.2 H Red Blood Count 3.80 L Hemoglobin 12.7 L Hematocrit 36.2 L Mean Corpuscular Volume 95.3 Mean Corpuscular Hemoglobin 33.4 H Mean Corpuscular Hemoglobin Concent 35.1 Red Cell Distribution Width 12.5 Platelet Count 222 Mean Platelet Volume 10.9 H Neutrophils % 86.1 H Lymphocytes % 6.7 L Monocytes % 5.5 Eosinophils % 0.1 Basophils % 0.2 Nucleated Red Blood Cells % 0.0 Neutrophils # 17.3 H Lymphocytes # 1.4 Monocytes # 1.1 H Eosinophils # 0.0 Basophils # 0.1 Nucleated Red Blood Cells # 0.0 Prothrombin Time 18.5 H Prothrombin Time Ratio 1.4 INR International Normalized Ratio 1.53 Activated Partial Thromboplast Time 34.8 Thrombin Time 15.7 Sodium Level 137 Potassium Level 3.9 Chloride Level 102 Carbon Dioxide Level 17 L Anion Gap 22 #H Blood Urea Nitrogen 31 H Creatinine 4.58 H Glucose Level 153 Hemoglobin A1c 7.3 H Lactic Acid Level 1.8 Calcium Level 7.6 L Phosphorus Level 3.6 Magnesium Level 1.8 Total Bilirubin 0.5 Direct Bilirubin 0.20 # Indirect Bilirubin 0.3 Aspartate Amino Transf (AST/SGOT) 268 #H Alanine Aminotransferase (ALT/SGPT) 495 H Alkaline Phosphatase 106 Creatine Kinase 971 H Creatine Kinase Index 1.7 Creatinine Kinase MB (Mass) 16.40 H Troponin I 16.900 *H B-Type Natriuretic Peptide 72763 H Total Protein 6.0 L Albumin 3.2 L Globulin 2.80 Albumin/Globulin Ratio 1.14 Triglycerides Level 170 H Cholesterol Level 78 L LDL Cholesterol, Calculated 29 HDL Cholesterol 15 L Cholesterol/HDL Ratio 5.2 Thyroid Stimulating Hormone (TSH) 0.165 L Free Thyroxine 1.14 Bedside Glucose 128 104 Test 11/28/16 07:00 11/28/16 07:57 11/28/16 08:50 11/28/16 10:04 Blood Gas Specimen Source Blood arterial Arterial Blood Date Drawn 11/28/2016 8:10:52 AM Arterial Blood pH (Temp corrected) 7.400 Arterial Blood pCO2 (Temp correct) 27.0 L Arterial Blood pO2 (Temp corrected) 89.5 Arterial Blood HCO3 16.3 L Arterial Blood Base Excess -6.9 L Arterial Blood Oxygen Saturation 96.6 Thomas Test N/A Arterial Blood Gas Puncture Site A-Line Arterial Blood Carboxyhemoglobin 0.3 Arterial Blood Methemoglobin 0.3 Blood Gas A-a O2 Differential 236.6 H Oxyhemoglobin Percent 96.0 Total Hemoglobin 13.2 Blood Gas Temperature 37.0 Blood Gas Respiration Rate 24.0 Blood Gas Actual Respiration Rate 24 Blood Gas Modality VENT - AC FiO2 50.0 Blood Gas Tidal Volume 600.0 Blood Gas Low PEEP Setting 5.0 Blood Gas Notified Whom CW Blood Gas Notified Time 11/28/2016 8:43:48 AM Bedside Glucose 141 121 128 Test 11/28/16 11:24 11/28/16 12:16 Bedside Glucose 110 150 Medications Medications Current Medications Fentanyl 100 ml @ 2.5 mls/hr TITRATE ONCE IV Last administered on 11/27/16 04 :21; Admin Dose 2.5 MLS/HR; Start 11/27/16 at 04:00; Stop 11/28/16 at 19:59 Dopamine HCl/ Dextrose 250 ml @ 7.275 mls/ hr TITRATE IV Last administered on 11/28/16 06:23; Admin Dose 21.825 MLS/HR; Start 11/27/16 at 05:00 Pantoprazole 40 mg 40 mg DAILY@06 IV Last administered on 11/28/16 06:17; Admin Dose 40 MG; Start 11/28/16 at 06:00 Norepinephrine 16 mg/Dextrose 500 ml @ 1.87 mls/hr TITRATE IV Last administered on 11/28/16 05:28; Admin Dose 30 MLS/HR; Start 11/27/16 at 09:00 Midazolam HCl 50 ml @ 1 mls/hr TITRATE IV Last administered on 11/28/16 06:23; Admin Dose 5 MLS/HR; Start 11/27/16 at 10:30 Piperacillin Sod/ Tazobactam Sod (Zosyn 3.375gm/ 100 ml (Pmx)) 100 ml @ 200 mls /hr Q8 IVPB Last administered on 11/28/16 06:17; Admin Dose 200 MLS/HR; Start 11/27/16 at 12:00 Acetaminophen 650 mg 650 mg Q6H PRN PO PAIN AND OR ELEVATED TEMP; Start at 12:00 Sodium Chloride (NS) 1,000 ml @ 20 mls/hr Q24H IV Last administered on 10:06; Admin Dose 100 MLS/HR; Start 11/27/16 at 12:30 Diagnostic Test (Pha) (Accu-Chek) 1 ea Q1H XX Last administered on 11/28/16 12: 20; Admin Dose 1 EA; Start 11/27/16 at 15:30 Dextrose (D50w Syringe) 25 ml Q15M PRN IV Till BS 80 mg/dL or above x2; Start 11/27/16 at 15:30 Dextrose (D50w Syringe) 50 ml Q15M PRN IV Till BS 80 mg/dL or above x2; Start 11/27/16 at 15:30 Heparin Sodium (Porcine) (Heparin (5000 Units/0.5 ml)) 5,000 unit BID SC Last administered on 11/28/16 08:53; Admin Dose 5,000 UNIT; Start 11/27/16 at 21:00 Aspirin (Aspirin) 81 mg DAILY NGT Last administered on 11/28/16 08:47; Admin Dose 81 MG; Start 11/28/16 at 09:00 Acetaminophen 650 mg 650 mg Q4H PRN NGT PAIN AND OR ELEVATED TEMP Last administered on 11/28/16 08:47; Admin Dose 650 MG; Start 11/27/16 at 17:32 Fluconazole/ Sodium Chloride (Diflucan 100 Mg/ NS (Pmx)) 50 ml @ 50 mls/hr Q24H IVPB Last administered on 11/28/16 10:36; Admin Dose 50 MLS/HR; Start 11/28/16 at 10:15 Miscellaneous Information 1 ONCE ONCE XX ; Start 11/29/16 at 05:00; Stop at 05:01 Bumetanide/ Dextrose/Water (Bumex/D5W) 120 ml @ 10 mls/hr Q12H ONCE IV Last administered on 11/28/16 12:28; Admin Dose 10 MLS/HR; Start 11/28/16 at 12:30; Stop 11/29/16 at 00:29 NHI MAO MD Nov 28, 2016 13:29
[2016-11-28] MEDS: INSULIN HUMAN REGULAR 100 UNIT in SOD CHLORIDE 0.9% 99 ML IV SCH (20:41)
[2016-11-28] MEDS ORDERED: VANCOMYCIN 1 GM in NS 250 ML IVPB SCH (21:00)
[2016-11-29] VITALS (101 sets, daily range): BP systolic 86–130; BP diastolic 67–93; PULSE 75–120; RESP 0–26
[2016-11-29] MEDS: ACCU-CHEK XX SCH ×24 (00:30→23:30)
[2016-11-29 05:05] LABS: ADD SCAN DIFF NO
[2016-11-29 05:12] LABS: BASOPHIL # 0.1 10^3/ul (0.0-0.1); BASOPHILS % 0.2 % (0.0-2.0); EOSINOPHILS % 0.1 % (0.0-7.0); HEMATOCRIT 35.6 % (42.0-52.0); HEMOGLOBIN 12.2 g/dl (14.0-18.0); LYMPHOCYTES # 1.4 10^3/ul (0.8-2.9); LYMPHOCYTES % 6.6 % (15.0-51.0); MEAN CORPUSCULAR HGB CONC 34.3 g/dl (32.0-37.0); MEAN CORPUSCULAR VOLUME 96.2 fl (82.0-101.0); MONOCYTE # 1.2 10^3/ul (0.3-0.9); MONOCYTES % 5.7 % (0.0-11.0); NEUTROPHIL # 17.3 10^3/ul (1.6-7.5); NEUTROPHILS % 84.6 % (39.0-77.0); PLATELET COUNT 259 10^3/UL (140-415); RED CELL DISTRIBUTION WIDTH 12.9 % (11.5-14.5); WHITE BLOOD COUNT 20.5 10^3/ul (4.8-10.8)
[2016-11-29] MEDS: PANTOPRAZOLE 40 MG INJ IV SCH (05:18)
[2016-11-29] MEDS: PIPER-TAZO 3.375 GM IV (PMX) 100 ML IVPB SCH (05:19)
[2016-11-29 05:46] LABS: CREATININE 7.05 mg/dl (0.61-1.24); PHOSPHORUS 5.4 mg/dl (2.5-4.9); POTASSIUM 4.1 mmol/L (3.5-5.1)
--- NOTE | 2016-11-29 07:12 | RADRPT ---
PROCEDURE: XR Chest. CLINICAL INDICATION: Respiratory failure TECHNIQUE: Portable single view of the chest COMPARISON: 11/28 FINDINGS: Tip of the endotracheal tube remains slightly close to the malathi, 2.2 cm away. Enlarged cardioperi cardial silhouette and nasogastric tube are again seen. Widened upper mediastinum is unchanged. Re duced lung volumes and pulmonary vascular congestion again seen. No large effusion. Probable left base atelectasis is similar to prior. IMPRESSION: No significant interval change. Endotracheal tube remains slightly close to the malathi, 2.2 cm away. This could be retracted 5 mm if desired. RPTAT: [facility] Physician Vanessa Date Time Electronically viewed and signed by Dee Villagran Physician on 11/29/2016 07:12 DURAN/
--- NOTE | 2016-11-29 07:30 | PN ---
Date/Time of Note Date/Time of Note DATE: 11/29/16 TIME: 07:26 Assessment/Plan VTE Prophylaxis VTE Prophylaxis Intervention: heparin Lines/Catheters IV Catheter Type (from Nrs): Central Line Central line still needed: Yes Urinary Cath still in place: Yes Reason Cath still needed: other (indicate) Assessment/Plan Chief Complaint/Hosp Course 1. acute [place] 2. VT cardiac arrest 3. shock: cardiogenic +/- septic 4. Afib 5. CHF: class IV 6. Acute hypoxemic resp failure 7. encephalopathy 8. ACUTE RENAL FAILURE: due to ATN ( doubt due to contrast since only 15 cc was used and pt had already been anuric and with acute elevation of creatinine prio to the angiogram). 9. DM 10. elevated LFT 11. recurrent FEVER & SEPSIS 12. SEVERE CARDIOMYOPATHY 13. moderate CAD: cont ASA ASA off of Heparin drip for now vent support cont pressors. echo reviewed pt with severe LV dysfx. replace lytes prn renal consult is appreciated. diuresis as per renal. Antibiotic has been started by her medicine/ pulmonary vent support will be continued continue the ICU care. CONSIDER NEURO CONSULTATION WELL. pt is no t improving neurologically and is off of sedation since 11/28 more than 36 minutes critical care time was reminded she is patient's including procedures. Problems: Subjective 24 Hr Interval Summary Free Text/Dictation d/w staff and physicians. d/w daughter. pt remains intubated on vent in ICU and on 2 pressors. nonverbral pt with better urine output. pt remains in NSR. meds reviewed. General: obese man intubated on vent. nonresponsive but sedated. HEENT: NC/AT. pupils are constricted. round. s/p intubation on vent NECK: . no stridor. CV: irregularly irregular. systolic murmur; no gallop or rubs. PULM: diffuse rhonchi. GI: obese soft , NT, ND, no rebound or guarding Extremity: + B/L LE edema. no clubbing. neuro: unresponsive. Psych: calm rectal: deferred : + scrotal edema Exam/Review of Systems Vital Signs Vitals Vital Signs Date Time Temp Pulse Resp B/P Pulse Ox O2 Delivery O2 Flow Rate FiO2 11/29/16 05:45 89 0 90/68 100 11/29/16 05:32 45 11/29/16 04:00 99.9 11/29/16 03:30 Mechanical Ventilator Intake and Output 11/28/16 11/28/16 11/29/16 15:00 23:00 07:00 Intake Total 1400.9 ml 911.200 ml 595.285 ml Output Total 297 ml 1075 ml 775 ml Balance 1103.9 ml -163.800 ml -179.715 ml Results Result Diagram: 11/29/16 0500 11/29/16 0500 Results 24 hrs Laboratory Tests Test 11/28/16 07:57 11/28/16 08:50 11/28/16 10:04 11/28/16 11:24 Bedside Glucose 141 121 128 110 Test 11/28/16 12:16 11/28/16 13:32 11/28/16 14:15 11/28/16 15:32 Bedside Glucose 150 92 90 172 Test 11/28/16 16:39 11/28/16 17:45 11/28/16 18:34 11/28/16 19:55 Bedside Glucose 176 186 178 Potassium Level 4.2 Test 11/28/16 19:57 11/28/16 20:37 11/28/16 21:37 11/28/16 22:43 Bedside Glucose 161 164 162 165 Test 11/28/16 23:34 11/29/16 00:31 11/29/16 01:41 11/29/16 02:39 Bedside Glucose 164 174 136 151 Test 11/29/16 03:38 11/29/16 04:44 11/29/16 05:00 11/29/16 05:43 Bedside Glucose 152 135 126 White Blood Count 20.5 H Red Blood Count 3.70 L Hemoglobin 12.2 L Hematocrit 35.6 L Mean Corpuscular Volume 96.2 Mean Corpuscular Hemoglobin 33.0 Mean Corpuscular Hemoglobin Concent 34.3 Red Cell Distribution Width 12.9 Platelet Count 259 Mean Platelet Volume 11.0 H Neutrophils % 84.6 H Lymphocytes % 6.6 L Monocytes % 5.7 Eosinophils % 0.1 Basophils % 0.2 Nucleated Red Blood Cells % 0.0 Neutrophils # 17.3 H Lymphocytes # 1.4 Monocytes # 1.2 H Eosinophils # 0.0 Basophils # 0.1 Nucleated Red Blood Cells # 0.0 Sodium Level 137 Potassium Level 4.1 Chloride Level 98 Carbon Dioxide Level 18 L Anion Gap 25 H Blood Urea Nitrogen 49 #H Creatinine 7.05 #H Glucose Level 143 Calcium Level 8.0 L Phosphorus Level 5.4 H Magnesium Level 2.0 Random Vancomycin Level 16.6 Test 11/29/16 06:30 11/29/16 06:31 Bedside Glucose 79 114 Medications Medications Current Medications Dopamine HCl/ Dextrose 250 ml @ 7.275 mls/ hr TITRATE IV Last administered on 11/28/16 17:40; Admin Dose 21.8 MLS/HR; Start 11/27/16 at 05:00 Pantoprazole 40 mg 40 mg DAILY@06 IV Last administered on 11/29/16 05:18; Admin Dose 40 MG; Start 11/28/16 at 06:00 Norepinephrine 16 mg/Dextrose 500 ml @ 1.87 mls/hr TITRATE IV Last administered on 11/28/16 22:47; Admin Dose 30 MLS/HR; Start 11/27/16 at 09:00 Midazolam HCl 50 ml @ 1 mls/hr TITRATE IV Last administered on 11/28/16 06:23; Admin Dose 5 MLS/HR; Start 11/27/16 at 10:30 Piperacillin Sod/ Tazobactam Sod (Zosyn 3.375gm/ 100 ml (Pmx)) 100 ml @ 200 mls /hr Q8 IVPB Last administered on 11/29/16 05:19; Admin Dose 200 MLS/HR; Start 11/27/16 at 12:00 Acetaminophen 650 mg 650 mg Q6H PRN PO PAIN AND OR ELEVATED TEMP; Start at 12:00 Sodium Chloride (NS) 1,000 ml @ 20 mls/hr Q24H IV Last administered on 10:06; Admin Dose 100 MLS/HR; Start 11/27/16 at 12:30 Diagnostic Test (Pha) (Accu-Chek) 1 ea Q1H XX Last administered on 11/28/16 18: 36; Admin Dose 1 EA; Start 11/27/16 at 15:30 Dextrose (D50w Syringe) 25 ml Q15M PRN IV Till BS 80 mg/dL or above x2; Start 11/27/16 at 15:30 Dextrose (D50w Syringe) 50 ml Q15M PRN IV Till BS 80 mg/dL or above x2; Start 11/27/16 at 15:30 Heparin Sodium (Porcine) (Heparin (5000 Units/0.5 ml)) 5,000 unit BID SC Last administered on 11/28/16 20:40; Admin Dose 5,000 UNIT; Start 11/27/16 at 21:00 Aspirin (Aspirin) 81 mg DAILY NGT Last administered on 11/28/16 08:47; Admin Dose 81 MG; Start 11/28/16 at 09:00 Acetaminophen 650 mg 650 mg Q4H PRN NGT PAIN AND OR ELEVATED TEMP Last administered on 11/28/16 22:45; Admin Dose 650 MG; Start 11/27/16 at 17:32 Fluconazole/ Sodium Chloride (Diflucan 100 Mg/ NS (Pmx)) 50 ml @ 50 mls/hr Q24H IVPB Last administered on 11/28/16 10:36; Admin Dose 50 MLS/HR; Start 11/28/16 at 10:15 NHI MAO MD Nov 29, 2016 07:30
[2016-11-29] MEDS: SOD CHLORIDE 0.9% 1,000 ML IV SCH (08:30)
[2016-11-29] MEDS: ASPIRIN 81 MG TAB NGT SCH (08:35)
[2016-11-29] MEDS: ACETAMINOPHEN 650MG/20.3ML CUP NGT PRN (08:35)
[2016-11-29] MEDS: HEPARIN 5,000 UNIT/0.5 ML VIAL SC SCH ×2 (08:37→20:53)
--- NOTE | 2016-11-29 08:43 | CONS ---
Date/Time of Note Date/Time of Note DATE: 11/29/16 TIME: 08:41 Assessment/Plan Assessment/Plan Chief Complaint/Hosp Course Pt admitted with V-fib cardiac arrest hypotensive and has remained on pressors with knon "liver dz" and hx elevated sugar. Problems: Additional Assessment/Plan 1. ATN sec to hypotension and dye if no recovery which I do not expect he will need HD tomm, will resume Bumex although little response from this yesterday. 2. Consider neuro eval 3. Acute MA Consultation Date/Type/Reason Admit Date/Time Nov 27, 2016 at 05:46 Initial Consult Date 11/27/16 Type of Consultation: Pulmonary ICU Referring Provider: TALIA LANGE 24 HR Interval Summary Subjective hx not possible: other (intubated and sedated) Exam/Review of Systems Vital Signs Vitals Vital Signs Date Time Temp Pulse Resp B/P Pulse Ox O2 Delivery O2 Flow Rate FiO2 11/29/16 08:00 30 11/29/16 05:45 89 0 90/68 100 11/29/16 04:00 99.9 11/29/16 03:30 Mechanical Ventilator Intake and Output 11/28/16 11/28/16 11/29/16 15:00 23:00 07:00 Intake Total 1400.9 ml 911.200 ml 595.285 ml Output Total 297 ml 1075 ml 775 ml Balance 1103.9 ml -163.800 ml -179.715 ml Exam Neck: No jvd Respiratory: diminished breath sounds Cardiovascular: regular rate and rhythm Gastrointestinal: soft Extremities: No edema (and no calf tend) Results Result Diagram: 11/29/16 0500 11/29/16 0500 Results 24 hrs Laboratory Tests Test 11/28/16 08:50 11/28/16 10:04 11/28/16 11:24 11/28/16 12:16 Bedside Glucose 121 128 110 150 Test 11/28/16 13:32 11/28/16 14:15 11/28/16 15:32 11/28/16 16:39 Bedside Glucose 92 90 172 176 Test 11/28/16 17:45 11/28/16 18:34 11/28/16 19:55 11/28/16 19:57 Bedside Glucose 186 178 161 Potassium Level 4.2 Test 11/28/16 20:37 11/28/16 21:37 11/28/16 22:43 11/28/16 23:34 Bedside Glucose 164 162 165 164 Test 11/29/16 00:31 11/29/16 01:41 11/29/16 02:39 11/29/16 03:38 Bedside Glucose 174 136 151 152 Test 11/29/16 04:44 11/29/16 05:00 11/29/16 05:43 11/29/16 06:30 Bedside Glucose 135 126 79 White Blood Count 20.5 H Red Blood Count 3.70 L Hemoglobin 12.2 L Hematocrit 35.6 L Mean Corpuscular Volume 96.2 Mean Corpuscular Hemoglobin 33.0 Mean Corpuscular Hemoglobin Concent 34.3 Red Cell Distribution Width 12.9 Platelet Count 259 Mean Platelet Volume 11.0 H Neutrophils % 84.6 H Lymphocytes % 6.6 L Monocytes % 5.7 Eosinophils % 0.1 Basophils % 0.2 Nucleated Red Blood Cells % 0.0 Neutrophils # 17.3 H Lymphocytes # 1.4 Monocytes # 1.2 H Eosinophils # 0.0 Basophils # 0.1 Nucleated Red Blood Cells # 0.0 Sodium Level 137 Potassium Level 4.1 Chloride Level 98 Carbon Dioxide Level 18 L Anion Gap 25 H Blood Urea Nitrogen 49 #H Creatinine 7.05 #H Glucose Level 143 Calcium Level 8.0 L Phosphorus Level 5.4 H Magnesium Level 2.0 Random Vancomycin Level 16.6 Test 11/29/16 06:31 11/29/16 07:50 Bedside Glucose 114 111 Medications Medications Current Medications Dopamine HCl/ Dextrose 250 ml @ 7.275 mls/ hr TITRATE IV Last administered on 11/28/16 17:40; Admin Dose 21.8 MLS/HR; Start 11/27/16 at 05:00 Pantoprazole 40 mg 40 mg DAILY@06 IV Last administered on 11/29/16 05:18; Admin Dose 40 MG; Start 11/28/16 at 06:00 Norepinephrine 16 mg/Dextrose 500 ml @ 1.87 mls/hr TITRATE IV Last administered on 11/28/16 22:47; Admin Dose 30 MLS/HR; Start 11/27/16 at 09:00 Midazolam HCl 50 ml @ 1 mls/hr TITRATE IV Last administered on 11/28/16 06:23; Admin Dose 5 MLS/HR; Start 11/27/16 at 10:30 Piperacillin Sod/ Tazobactam Sod (Zosyn 3.375gm/ 100 ml (Pmx)) 100 ml @ 200 mls /hr Q8 IVPB Last administered on 11/29/16 05:19; Admin Dose 200 MLS/HR; Start 11/27/16 at 12:00 Acetaminophen 650 mg 650 mg Q6H PRN PO PAIN AND OR ELEVATED TEMP; Start at 12:00 Sodium Chloride (NS) 1,000 ml @ 20 mls/hr Q24H IV Last administered on 10:06; Admin Dose 100 MLS/HR; Start 11/27/16 at 12:30 Diagnostic Test (Pha) (Accu-Chek) 1 ea Q1H XX Last administered on 11/29/16 07: 51; Admin Dose 1 EA; Start 11/27/16 at 15:30 Dextrose (D50w Syringe) 25 ml Q15M PRN IV Till BS 80 mg/dL or above x2; Start 11/27/16 at 15:30 Dextrose (D50w Syringe) 50 ml Q15M PRN IV Till BS 80 mg/dL or above x2; Start 11/27/16 at 15:30 Heparin Sodium (Porcine) (Heparin (5000 Units/0.5 ml)) 5,000 unit BID SC Last administered on 11/28/16 20:40; Admin Dose 5,000 UNIT; Start 11/27/16 at 21:00 Aspirin (Aspirin) 81 mg DAILY NGT Last administered on 11/28/16 08:47; Admin Dose 81 MG; Start 11/28/16 at 09:00 Acetaminophen 650 mg 650 mg Q4H PRN NGT PAIN AND OR ELEVATED TEMP Last administered on 11/28/16 22:45; Admin Dose 650 MG; Start 11/27/16 at 17:32 Fluconazole/ Sodium Chloride (Diflucan 100 Mg/ NS (Pmx)) 50 ml @ 50 mls/hr Q24H IVPB Last administered on 11/28/16 10:36; Admin Dose 50 MLS/HR; Start 11/28/16 at 10:15 WANDY THOMAS MD Nov 29, 2016 08:43
--- NOTE | 2016-11-29 09:20 | PN ---
Date/Time of Note Date/Time of Note DATE: 11/29/16 TIME: 09:13 Assessment/Plan VTE Prophylaxis VTE Prophylaxis Intervention: heparin Lines/Catheters IV Catheter Type (from Nrs): Central Line Central line still needed: Yes Urinary Cath still in place: Yes Reason Cath still needed: urinary retention Assessment/Plan Chief Complaint/Hosp Course Assessment and plan: 51-year-old male status post cardiac arrest, non-ST elevation CO, renal insufficiency, intubated, on pressor support. 1. 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 Off heparin IV drip now. - Continue pressor support, follow cardiology recommendations. - continue insulin drip as well. - per CV team, med mngt - will consult palliative team as well - EEG and Neuro consult as well 2. Renal failure - sec to ATN from hypoperfusion/sepsis (and possibly contrast from [facility]). Patient's creatinine has gone up from 1.36-> 2.44 -> 4.58 -> 7. UO is low, followed by renal team. -f/u renal consult rec's - for Bumex again today - monitor ins and outs, check BMP in the a.m. - may need HD soon per renal given worsening renal fct 3. Respiratory failure: Again patient was intubated in the ER. - Continue duo nebs as needed, follow pulmonary recommendations for vent management 4. Prediabetes: A1c = 7.3 - continue insulin drip as mentioned in #1 5. GI prophylaxis: PPI 6. DVT prophylaxis: Heparin drip 7. Shock -likely combination of septic and cardiogenic shock - sepsis possible source sec to UTI? + Fevers still (sec to infx vs central??). ECHO = EF = 30%. - continue broad-spectrum antibiotics - will get ID consult as well - continue to trend the white blood cell count, follow final culture results - Tylenol as needed pain and fevers. Critical care time spent today = 50 min. Problems: Subjective 24 Hr Interval Summary Free Text/Dictation Pt still intubated, off dopamine since early AM today. On insulin drip. Received Bumex yesterday. Still + fevers. Exam/Review of Systems Vital Signs Vitals Vital Signs Date Time Temp Pulse Resp B/P Pulse Ox O2 Delivery O2 Flow Rate FiO2 11/29/16 08:00 30 11/29/16 05:45 89 0 90/68 100 11/29/16 04:00 99.9 11/29/16 03:30 Mechanical Ventilator Intake and Output 11/28/16 11/28/16 11/29/16 15:00 23:00 07:00 Intake Total 1400.9 ml 911.200 ml 595.285 ml Output Total 297 ml 1075 ml 775 ml Balance 1103.9 ml -163.800 ml -179.715 ml Exam General: Patient is intubated, lying in bed, on pressors HEENT: unable to fully assess at this time Neck: Supple Respiratory: Distant breath sounds bilaterally Cardiovascular: S1-S2 heard, no rubs or gallops Abdomen: Soft, nontender, nondistended, no rebound or guarding, normal bowel sounds Muscular skeletal: No lower extremity edema bilaterally Neurologic: Unable to fully assess because patient is intubated Results Result Diagram: 11/29/16 0500 11/29/16 0500 Results 24 hrs Laboratory Tests Test 11/28/16 10:04 11/28/16 11:24 11/28/16 12:16 11/28/16 13:32 Bedside Glucose 128 110 150 92 Test 11/28/16 14:15 11/28/16 15:32 11/28/16 16:39 11/28/16 17:45 Bedside Glucose 90 172 176 186 Test 11/28/16 18:34 11/28/16 19:55 11/28/16 19:57 11/28/16 20:37 Bedside Glucose 178 161 164 Potassium Level 4.2 Test 11/28/16 21:37 11/28/16 22:43 11/28/16 23:34 11/29/16 00:31 Bedside Glucose 162 165 164 174 Test 11/29/16 01:41 11/29/16 02:39 11/29/16 03:38 11/29/16 04:44 Bedside Glucose 136 151 152 135 Test 11/29/16 05:00 11/29/16 05:43 11/29/16 06:30 11/29/16 06:31 White Blood Count 20.5 H Red Blood Count 3.70 L Hemoglobin 12.2 L Hematocrit 35.6 L Mean Corpuscular Volume 96.2 Mean Corpuscular Hemoglobin 33.0 Mean Corpuscular Hemoglobin Concent 34.3 Red Cell Distribution Width 12.9 Platelet Count 259 Mean Platelet Volume 11.0 H Neutrophils % 84.6 H Lymphocytes % 6.6 L Monocytes % 5.7 Eosinophils % 0.1 Basophils % 0.2 Nucleated Red Blood Cells % 0.0 Neutrophils # 17.3 H Lymphocytes # 1.4 Monocytes # 1.2 H Eosinophils # 0.0 Basophils # 0.1 Nucleated Red Blood Cells # 0.0 Sodium Level 137 Potassium Level 4.1 Chloride Level 98 Carbon Dioxide Level 18 L Anion Gap 25 H Blood Urea Nitrogen 49 #H Creatinine 7.05 #H Glucose Level 143 Calcium Level 8.0 L Phosphorus Level 5.4 H Magnesium Level 2.0 Random Vancomycin Level 16.6 Bedside Glucose 126 79 114 Test 11/29/16 07:50 11/29/16 08:41 Bedside Glucose 111 126 Medications Medications Current Medications Dopamine HCl/ Dextrose 250 ml @ 7.275 mls/ hr TITRATE IV Last administered on 11/28/16 17:40; Admin Dose 21.8 MLS/HR; Start 11/27/16 at 05:00 Pantoprazole 40 mg 40 mg DAILY@06 IV Last administered on 11/29/16 05:18; Admin Dose 40 MG; Start 11/28/16 at 06:00 Norepinephrine 16 mg/Dextrose 500 ml @ 1.87 mls/hr TITRATE IV Last administered on 11/28/16 22:47; Admin Dose 30 MLS/HR; Start 11/27/16 at 09:00 Midazolam HCl 50 ml @ 1 mls/hr TITRATE IV Last administered on 11/28/16 06:23; Admin Dose 5 MLS/HR; Start 11/27/16 at 10:30 Piperacillin Sod/ Tazobactam Sod (Zosyn 3.375gm/ 100 ml (Pmx)) 100 ml @ 200 mls /hr Q8 IVPB Last administered on 11/29/16 05:19; Admin Dose 200 MLS/HR; Start 11/27/16 at 12:00 Acetaminophen 650 mg 650 mg Q6H PRN PO PAIN AND OR ELEVATED TEMP; Start at 12:00 Sodium Chloride (NS) 1,000 ml @ 20 mls/hr Q24H IV Last administered on 10:06; Admin Dose 100 MLS/HR; Start 11/27/16 at 12:30 Diagnostic Test (Pha) (Accu-Chek) 1 ea Q1H XX Last administered on 11/29/16 08: 41; Admin Dose 1 EA; Start 11/27/16 at 15:30 Dextrose (D50w Syringe) 25 ml Q15M PRN IV Till BS 80 mg/dL or above x2; Start 11/27/16 at 15:30 Dextrose (D50w Syringe) 50 ml Q15M PRN IV Till BS 80 mg/dL or above x2; Start 11/27/16 at 15:30 Heparin Sodium (Porcine) (Heparin (5000 Units/0.5 ml)) 5,000 unit BID SC Last administered on 11/29/16 08:37; Admin Dose 5,000 UNIT; Start 11/27/16 at 21:00 Aspirin (Aspirin) 81 mg DAILY NGT Last administered on 11/29/16 08:35; Admin Dose 81 MG; Start 11/28/16 at 09:00 Acetaminophen 650 mg 650 mg Q4H PRN NGT PAIN AND OR ELEVATED TEMP Last administered on 11/29/16 08:35; Admin Dose 650 MG; Start 11/27/16 at 17:32 Fluconazole/ Sodium Chloride 50 ml @ 50 mls/hr Q24H IVPB Last administered on 10:36; Admin Dose 50 MLS/HR; Start 11/28/16 at 10:15 Bumetanide/ Dextrose/Water (Bumex/D5W) 120 ml @ 10 mls/hr Q12H ONCE IV ; Start 11/29/16 at 10:00; Stop 11/29/16 at 21:59 TALIA LANGE Nov 29, 2016 09:20
[2016-11-29] MEDS ORDERED: BUMETANIDE 12 MG in DEXTROSE 5% 72 ML IV ONE (10:00)
[2016-11-29] MEDS: FLUCONAZOLE 100 MG/NS (PMX) 50 ML IVPB SCH ×2 (10:15→12:52)
--- NOTE | 2016-11-29 10:28 | CONS ---
Date/Time of Note Date/Time of Note DATE: 11/29/16 TIME: 10:26 Consult Date/Type/Reason Admit Date/Time Nov 27, 2016 at 05:46 Initial Consult Date 11/27/16 Type of Consultation: Pulmonary ICU Ordering Provider: TALIA LANGE Subjective Patient remains unresponsive on mechanical ventilation Pupils are nonreactive He is breathing above the set ventilatory rate Continues to have fevers still requiring Levophed vasopressor support. Objective Vital Signs Date Time Temp Pulse Resp B/P Pulse Ox O2 Delivery O2 Flow Rate FiO2 11/29/16 09:30 83 24 117/85 100 11/29/16 09:00 102.7 Mechanical Ventilator 11/29/16 08:00 30 Intake and Output 11/28/16 11/28/16 11/29/16 15:00 23:00 07:00 Intake Total 1400.9 ml 911.200 ml 595.285 ml Output Total 297 ml 1075 ml 775 ml Balance 1103.9 ml -163.800 ml -179.715 ml Exam PHYSICAL EXAMINATION GENERAL: Moderately obese gentleman orally intubated. VITAL SIGNS: see below. HEENT: Pupils unreactive. CARDIAC: S1, S2, 1/6 systolic ejection murmur CHEST: Diminished air entry bilaterally. ABDOMEN: Mildly distended. Bowel sounds present no guarding or rebound EXTREMITIES: No cyanosis, clubbing edema +1 NEUROLOGIC: Generalized weakness Results/Medications Result Diagram: 11/29/16 0500 11/29/16 0500 Results 24 hrs Chest x-ray Low lung volumes. Laboratory Tests Test 11/28/16 11:24 11/28/16 12:16 11/28/16 13:32 11/28/16 14:15 Bedside Glucose 110 150 92 90 Test 11/28/16 15:32 11/28/16 16:39 11/28/16 17:45 11/28/16 18:34 Bedside Glucose 172 176 186 178 Test 11/28/16 19:55 11/28/16 19:57 11/28/16 20:37 11/28/16 21:37 Potassium Level 4.2 Bedside Glucose 161 164 162 Test 11/28/16 22:43 11/28/16 23:34 11/29/16 00:31 11/29/16 01:41 Bedside Glucose 165 164 174 136 Test 11/29/16 02:39 11/29/16 03:38 11/29/16 04:44 11/29/16 05:00 Bedside Glucose 151 152 135 White Blood Count 20.5 H Red Blood Count 3.70 L Hemoglobin 12.2 L Hematocrit 35.6 L Mean Corpuscular Volume 96.2 Mean Corpuscular Hemoglobin 33.0 Mean Corpuscular Hemoglobin Concent 34.3 Red Cell Distribution Width 12.9 Platelet Count 259 Mean Platelet Volume 11.0 H Neutrophils % 84.6 H Lymphocytes % 6.6 L Monocytes % 5.7 Eosinophils % 0.1 Basophils % 0.2 Nucleated Red Blood Cells % 0.0 Neutrophils # 17.3 H Lymphocytes # 1.4 Monocytes # 1.2 H Eosinophils # 0.0 Basophils # 0.1 Nucleated Red Blood Cells # 0.0 Sodium Level 137 Potassium Level 4.1 Chloride Level 98 Carbon Dioxide Level 18 L Anion Gap 25 H Blood Urea Nitrogen 49 #H Creatinine 7.05 #H Glucose Level 143 Calcium Level 8.0 L Phosphorus Level 5.4 H Magnesium Level 2.0 Random Vancomycin Level 16.6 Test 11/29/16 05:43 11/29/16 06:30 11/29/16 06:31 11/29/16 07:50 Bedside Glucose 126 79 114 111 Test 11/29/16 08:41 11/29/16 09:33 Bedside Glucose 126 123 Medications Current Medications Dopamine HCl/ Dextrose 250 ml @ 7.275 mls/ hr TITRATE IV Last administered on 11/28/16 17:40; Admin Dose 21.8 MLS/HR; Start 11/27/16 at 05:00 Pantoprazole 40 mg 40 mg DAILY@06 IV Last administered on 11/29/16 05:18; Admin Dose 40 MG; Start 11/28/16 at 06:00 Norepinephrine 16 mg/Dextrose 500 ml @ 1.87 mls/hr TITRATE IV Last administered on 11/28/16 22:47; Admin Dose 30 MLS/HR; Start 11/27/16 at 09:00 Midazolam HCl (Versed) 50 ml @ 1 mls/hr TITRATE IV Last administered on 06:23; Admin Dose 5 MLS/HR; Start 11/27/16 at 10:30 Acetaminophen 650 mg 650 mg Q6H PRN PO PAIN AND OR ELEVATED TEMP; Start at 12:00 Sodium Chloride (NS) 1,000 ml @ 20 mls/hr Q24H IV Last administered on 10:06; Admin Dose 100 MLS/HR; Start 11/27/16 at 12:30 Diagnostic Test (Pha) (Accu-Chek) 1 ea Q1H XX Last administered on 11/29/16 08: 41; Admin Dose 1 EA; Start 11/27/16 at 15:30 Dextrose (D50w Syringe) 25 ml Q15M PRN IV Till BS 80 mg/dL or above x2; Start 11/27/16 at 15:30 Dextrose (D50w Syringe) 50 ml Q15M PRN IV Till BS 80 mg/dL or above x2; Start 11/27/16 at 15:30 Heparin Sodium (Porcine) (Heparin (5000 Units/0.5 ml)) 5,000 unit BID SC Last administered on 11/29/16 08:37; Admin Dose 5,000 UNIT; Start 11/27/16 at 21:00 Aspirin (Aspirin) 81 mg DAILY NGT Last administered on 11/29/16 08:35; Admin Dose 81 MG; Start 11/28/16 at 09:00 Acetaminophen 650 mg 650 mg Q4H PRN NGT PAIN AND OR ELEVATED TEMP Last administered on 11/29/16 08:35; Admin Dose 650 MG; Start 11/27/16 at 17:32 Fluconazole/ Sodium Chloride 50 ml @ 50 mls/hr Q24H IVPB Last administered on 10:36; Admin Dose 50 MLS/HR; Start 11/28/16 at 10:15 Bumetanide 12 mg/ Dextrose/Water 120 ml @ 10 mls/hr Q12H ONCE IV ; Start at 10:00; Stop 11/29/16 at 21:59 Piperacillin Sod/ Tazobactam Sod 50 ml @ 100 mls/hr Q8 IVPB ; Start 11/29/16 at 14:00 Vancomycin HCl (Vancocin) 250 ml @ 125 mls/hr 11 IVPB ; Start 11/29/16 at 11:00 ; Stop 11/29/16 at 23:00 Assessment/Plan Chief Complaint/Hosp Course Assessment 1. Ventricular fibrillation with cardiac arrest. 2. Possible underlying coronary artery disease. Echocardiogram shows decreased ejection fraction with multiple wall motion abnormalities. 3. Possible aspiration pneumonia. Septic shock. 4. Hypoxemic respiratory failure secondary to above. 5. Acute renal failure likely ATN injury from hypoperfusion. 6. Significant metabolic acidosis. Slowly improving. 7. Likely severe anoxic brain injury following cardiac arrest Plan 1. Continue mechanical ventilation 2. Intravenous bicarbonate, renal recommendations may require hemodialysis. 3. Broad-spectrum antibiotics for possible aspiration pneumonia, await cultures 4. Continue cardiac recommendations, cardiac catheterization findings noted 5. DVT and GI prophylaxis 6. Consider neurology evaluation, EEG 7. Continue vasopressor support Disposition Continue ICU care Not stable for transfer to [facility] given multiple vasopressors Critical care time 40 minutes. Problems: STEVE PLAZA MD, [facility] Nov 29, 2016 10:28
[2016-11-29] MEDS ORDERED: VANCOMYCIN 1 GM in NS 250 ML IVPB SCH (11:00)
[2016-11-29] MEDS: INSULIN HUMAN REGULAR 100 UNIT in SOD CHLORIDE 0.9% 99 ML IV SCH (11:19)
--- NOTE | 2016-11-29 13:38 | CONS ---
Date/Time of Note Date/Time of Note DATE: 11/29/16 TIME: 13:19 Assessment/Plan Assessment/Plan Chief Complaint/Hosp Course PHYSICAL EXAMINATION: GENERAL: Not in acute distress, lying in bed. HEENT: Normocephalic, atraumatic head. NECK: No carotid bruits. No thyromegaly. LUNGS: Clear to auscultation bilaterally, intubated orally. ABDOMEN: Soft. EXTREMITIES: No cyanosis, clubbing or edema. NEUROLOGIC: He is lethargic. No response to voice, pain or commands. No response to visual threat. Pupils 2 mm on the left, 1.5 mm on the right; fixed. No EOM, neither spontaniously nor on oculocephalic maneuver. Corneal reflexes are absent. Gag is absent. No withdrawal of flaccid extremities to pain. Deep tendon reflexes 1+ upper extremities, absent lower extremities. No definite response to plantar stimulation. IMPRESSION: Severe encephalopathy, anoxic +/- toxic metabolic. Status post cardiopulmonary arrest. Continue current Tx. EEG/CT head Problems: Consultation Date/Type/Reason Admit Date/Time Nov 27, 2016 at 05:46 Hx of Present Illness Hx is per chart: H&P, "51-year-old male past medical history of prediabetes, high cholesterol, who was having complaints weakness and decreased appetite and confusion and chills for the last 3 days, per family. Per family early this morning patient got up complaining of left arm numbness as he was getting out of bed he fell forward and was nonresponsive. Family started CPR and EMS was called and when patient arrived he was found with elevated troponin levels of 37." Off sedation, unresponsive Current med problems:acute GA, [place] cardiac arrest, shock: cardiogenic +/- septic , Afib, CHF: class IV, Acute hypoxemic resp failure, encephalopathy, ACUTE RENAL FAILURE, elevated LFT, recurrent FEVER & SEPSIS, SEVERE CARDIOMYOPATHY, moderate CAD: cont ASA Past Medical History Medical History: diabetes, high cholesterol Past Surgical History Past Surgical Hx: other (Right elbow surgery) Social History Alcohol Use: none Smoking Status: Never smoker Drug Use: none Exam/Review of Systems Vital Signs Vitals Vital Signs Date Time Temp Pulse Resp B/P Pulse Ox O2 Delivery O2 Flow Rate FiO2 11/29/16 12:45 81 24 114/81 98 11/29/16 12:00 100.7 Mechanical Ventilator 11/29/16 08:00 30 Intake and Output 11/28/16 11/28/16 11/29/16 15:00 23:00 07:00 Intake Total 1400.9 ml 911.200 ml 648.285 ml Output Total 297 ml 1075 ml 775 ml Balance 1103.9 ml -163.800 ml -126.715 ml Results Result Diagram: 11/29/16 0500 11/29/16 0500 Results 24 hrs Laboratory Tests Test 11/28/16 13:32 11/28/16 14:15 11/28/16 15:32 11/28/16 16:39 Bedside Glucose 92 90 172 176 Test 11/28/16 17:45 11/28/16 18:34 11/28/16 19:55 11/28/16 19:57 Bedside Glucose 186 178 161 Potassium Level 4.2 Test 11/28/16 20:37 11/28/16 21:37 11/28/16 22:43 11/28/16 23:34 Bedside Glucose 164 162 165 164 Test 11/29/16 00:31 11/29/16 01:41 11/29/16 02:39 11/29/16 03:38 Bedside Glucose 174 136 151 152 Test 11/29/16 04:44 11/29/16 05:00 11/29/16 05:43 11/29/16 06:30 Bedside Glucose 135 126 79 White Blood Count 20.5 H Red Blood Count 3.70 L Hemoglobin 12.2 L Hematocrit 35.6 L Mean Corpuscular Volume 96.2 Mean Corpuscular Hemoglobin 33.0 Mean Corpuscular Hemoglobin Concent 34.3 Red Cell Distribution Width 12.9 Platelet Count 259 Mean Platelet Volume 11.0 H Neutrophils % 84.6 H Lymphocytes % 6.6 L Monocytes % 5.7 Eosinophils % 0.1 Basophils % 0.2 Nucleated Red Blood Cells % 0.0 Neutrophils # 17.3 H Lymphocytes # 1.4 Monocytes # 1.2 H Eosinophils # 0.0 Basophils # 0.1 Nucleated Red Blood Cells # 0.0 Sodium Level 137 Potassium Level 4.1 Chloride Level 98 Carbon Dioxide Level 18 L Anion Gap 25 H Blood Urea Nitrogen 49 #H Creatinine 7.05 #H Glucose Level 143 Calcium Level 8.0 L Phosphorus Level 5.4 H Magnesium Level 2.0 Random Vancomycin Level 16.6 Test 11/29/16 06:31 11/29/16 07:50 11/29/16 08:41 11/29/16 09:33 Bedside Glucose 114 111 126 123 Test 11/29/16 11:14 11/29/16 12:53 Bedside Glucose 156 125 Medications Medications Current Medications Dopamine HCl/ Dextrose 250 ml @ 7.275 mls/ hr TITRATE IV Last administered on 11/28/16 17:40; Admin Dose 21.8 MLS/HR; Start 11/27/16 at 05:00 Pantoprazole 40 mg 40 mg DAILY@06 IV Last administered on 11/29/16 05:18; Admin Dose 40 MG; Start 11/28/16 at 06:00 Norepinephrine 16 mg/Dextrose 500 ml @ 1.87 mls/hr TITRATE IV Last administered on 11/28/16 22:47; Admin Dose 30 MLS/HR; Start 11/27/16 at 09:00 Midazolam HCl (Versed) 50 ml @ 1 mls/hr TITRATE IV Last administered on 06:23; Admin Dose 5 MLS/HR; Start 11/27/16 at 10:30 Acetaminophen 650 mg 650 mg Q6H PRN PO PAIN AND OR ELEVATED TEMP; Start at 12:00 Sodium Chloride (NS) 1,000 ml @ 20 mls/hr Q24H IV Last administered on 10:06; Admin Dose 100 MLS/HR; Start 11/27/16 at 12:30 Diagnostic Test (Pha) (Accu-Chek) 1 ea Q1H XX Last administered on 11/29/16 11: 20; Admin Dose 1 EA; Start 11/27/16 at 15:30 Dextrose (D50w Syringe) 25 ml Q15M PRN IV Till BS 80 mg/dL or above x2; Start 11/27/16 at 15:30 Dextrose (D50w Syringe) 50 ml Q15M PRN IV Till BS 80 mg/dL or above x2; Start 11/27/16 at 15:30 Heparin Sodium (Porcine) (Heparin (5000 Units/0.5 ml)) 5,000 unit BID SC Last administered on 11/29/16 08:37; Admin Dose 5,000 UNIT; Start 11/27/16 at 21:00 Aspirin (Aspirin) 81 mg DAILY NGT Last administered on 11/29/16 08:35; Admin Dose 81 MG; Start 11/28/16 at 09:00 Acetaminophen 650 mg 650 mg Q4H PRN NGT PAIN AND OR ELEVATED TEMP Last administered on 11/29/16 08:35; Admin Dose 650 MG; Start 11/27/16 at 17:32 Fluconazole/ Sodium Chloride 50 ml @ 50 mls/hr Q24H IVPB Last administered on 12:52; Admin Dose 50 MLS/HR; Start 11/28/16 at 10:15 Bumetanide 12 mg/ Dextrose/Water 120 ml @ 10 mls/hr Q12H ONCE IV Last administered on 11/29/16 10:37; Admin Dose 10 MLS/HR; Start 11/29/16 at 10:00; Stop 11/29/16 at 21:59 Piperacillin Sod/ Tazobactam Sod 50 ml @ 100 mls/hr Q8 IVPB ; Start 11/29/16 at 14:00 Vancomycin HCl (Vancocin) 250 ml @ 125 mls/hr 11 IVPB Last administered on 11/29 10:43; Admin Dose 125 MLS/HR; Start 11/29/16 at 11:00; Stop 11/29/16 at 23: 00 MIKEL THOMPSON MD Nov 29, 2016 13:29
--- NOTE | 2016-11-29 13:53 | CONS ---
Date/Time of Note Date/Time of Note DATE: 11/29/16 TIME: 13:48 Assessment/Plan Assessment/Plan Chief Complaint/Hosp Course 1. Shock likely cardiogenic, possibly septic 2. Persistent fevers with leukocytosis 2. Status post cardiopulmonary arrest 3. Acute MS 4. Acute renal failure 5. Transaminitis 6. Severe cardiomyopathy 7. Morbid obesity Plan: Change Zosyn to meropenem, continue Vanco for now follow recommendations of consultants, pending EEG Problems: Consultation Date/Type/Reason Admit Date/Time Nov 27, 2016 at 05:46 Type of Consultation: Infectious disease Reason for Consultation Antibiotic management Referring Provider: TALIA LANGE Past Medical History Medical History: diabetes, high cholesterol Past Surgical History Past Surgical Hx: other (Right elbow surgery) Social History Alcohol Use: none Smoking Status: Never smoker Drug Use: none Exam/Review of Systems Vital Signs Vitals Vital Signs Date Time Temp Pulse Resp B/P Pulse Ox O2 Delivery O2 Flow Rate FiO2 11/29/16 12:45 81 24 114/81 98 11/29/16 12:00 100.7 Mechanical Ventilator 11/29/16 08:00 30 Intake and Output 11/28/16 11/28/16 11/29/16 15:00 23:00 07:00 Intake Total 1400.9 ml 911.200 ml 648.285 ml Output Total 297 ml 1075 ml 775 ml Balance 1103.9 ml -163.800 ml -126.715 ml Results Result Diagram: 11/29/16 0500 11/29/16 0500 Results 24 hrs Laboratory Tests Test 11/28/16 14:15 11/28/16 15:32 11/28/16 16:39 11/28/16 17:45 Bedside Glucose 90 172 176 186 Test 11/28/16 18:34 11/28/16 19:55 11/28/16 19:57 11/28/16 20:37 Bedside Glucose 178 161 164 Potassium Level 4.2 Test 11/28/16 21:37 11/28/16 22:43 11/28/16 23:34 11/29/16 00:31 Bedside Glucose 162 165 164 174 Test 11/29/16 01:41 11/29/16 02:39 11/29/16 03:38 11/29/16 04:44 Bedside Glucose 136 151 152 135 Test 11/29/16 05:00 11/29/16 05:43 11/29/16 06:30 11/29/16 06:31 White Blood Count 20.5 H Red Blood Count 3.70 L Hemoglobin 12.2 L Hematocrit 35.6 L Mean Corpuscular Volume 96.2 Mean Corpuscular Hemoglobin 33.0 Mean Corpuscular Hemoglobin Concent 34.3 Red Cell Distribution Width 12.9 Platelet Count 259 Mean Platelet Volume 11.0 H Neutrophils % 84.6 H Lymphocytes % 6.6 L Monocytes % 5.7 Eosinophils % 0.1 Basophils % 0.2 Nucleated Red Blood Cells % 0.0 Neutrophils # 17.3 H Lymphocytes # 1.4 Monocytes # 1.2 H Eosinophils # 0.0 Basophils # 0.1 Nucleated Red Blood Cells # 0.0 Sodium Level 137 Potassium Level 4.1 Chloride Level 98 Carbon Dioxide Level 18 L Anion Gap 25 H Blood Urea Nitrogen 49 #H Creatinine 7.05 #H Glucose Level 143 Calcium Level 8.0 L Phosphorus Level 5.4 H Magnesium Level 2.0 Random Vancomycin Level 16.6 Bedside Glucose 126 79 114 Test 11/29/16 07:50 11/29/16 08:41 11/29/16 09:33 11/29/16 11:14 Bedside Glucose 111 126 123 156 Test 11/29/16 12:53 Bedside Glucose 125 Medications Medications Current Medications Dopamine HCl/ Dextrose 250 ml @ 7.275 mls/ hr TITRATE IV Last administered on 11/28/16 17:40; Admin Dose 21.8 MLS/HR; Start 11/27/16 at 05:00 Pantoprazole 40 mg 40 mg DAILY@06 IV Last administered on 11/29/16 05:18; Admin Dose 40 MG; Start 11/28/16 at 06:00 Norepinephrine 16 mg/Dextrose 500 ml @ 1.87 mls/hr TITRATE IV Last administered on 11/28/16 22:47; Admin Dose 30 MLS/HR; Start 11/27/16 at 09:00 Midazolam HCl (Versed) 50 ml @ 1 mls/hr TITRATE IV Last administered on 06:23; Admin Dose 5 MLS/HR; Start 11/27/16 at 10:30 Acetaminophen 650 mg 650 mg Q6H PRN PO PAIN AND OR ELEVATED TEMP; Start at 12:00 Sodium Chloride (NS) 1,000 ml @ 20 mls/hr Q24H IV Last administered on 10:06; Admin Dose 100 MLS/HR; Start 11/27/16 at 12:30 Diagnostic Test (Pha) (Accu-Chek) 1 ea Q1H XX Last administered on 11/29/16 11: 20; Admin Dose 1 EA; Start 11/27/16 at 15:30 Dextrose (D50w Syringe) 25 ml Q15M PRN IV Till BS 80 mg/dL or above x2; Start 11/27/16 at 15:30 Dextrose (D50w Syringe) 50 ml Q15M PRN IV Till BS 80 mg/dL or above x2; Start 11/27/16 at 15:30 Heparin Sodium (Porcine) (Heparin (5000 Units/0.5 ml)) 5,000 unit BID SC Last administered on 11/29/16 08:37; Admin Dose 5,000 UNIT; Start 11/27/16 at 21:00 Aspirin (Aspirin) 81 mg DAILY NGT Last administered on 11/29/16 08:35; Admin Dose 81 MG; Start 11/28/16 at 09:00 Acetaminophen 650 mg 650 mg Q4H PRN NGT PAIN AND OR ELEVATED TEMP Last administered on 11/29/16 08:35; Admin Dose 650 MG; Start 11/27/16 at 17:32 Fluconazole/ Sodium Chloride 50 ml @ 50 mls/hr Q24H IVPB Last administered on 12:52; Admin Dose 50 MLS/HR; Start 11/28/16 at 10:15 Bumetanide 12 mg/ Dextrose/Water 120 ml @ 10 mls/hr Q12H ONCE IV Last administered on 11/29/16 10:37; Admin Dose 10 MLS/HR; Start 11/29/16 at 10:00; Stop 11/29/16 at 21:59 Piperacillin Sod/ Tazobactam Sod 50 ml @ 100 mls/hr Q8 IVPB ; Start 11/29/16 at 14:00 Vancomycin HCl (Vancocin) 250 ml @ 125 mls/hr 11 IVPB Last administered on 11/29 10:43; Admin Dose 125 MLS/HR; Start 11/29/16 at 11:00; Stop 11/29/16 at 23: 00 LATASHA BRUNNER NP Nov 29, 2016 13:53
[2016-11-29 13:56] LABS: AADO2 Arterial 142.8 mmHg (7.0-24.0); Arterial Base Excess -6.6 mmol/L (-3.0-3); Arterial COHb 0.3 % (0.0-3.0); Arterial Fraction of Oxyhgb 98.2 % (93.0-99.0); Arterial HCO3 15.4 mmol/L (22.0-26.0); Arterial MetHb 0.2 % (0.0-1.5); Arterial Total Hemglobin 12.8 g/dl (12.0-18.0); MODE VENT - AC
[2016-11-29] MEDS ORDERED: PIPER-TAZO 2.25 GM (PMX) 50 ML IVPB SCH (14:00)
[2016-11-29] MEDS: MEROPENEM 500 MG/100 ML (PMX) 100 ML IVPB SCH (17:17)
--- NOTE | 2016-11-29 22:32 | RADRPT ---
PROCEDURE: CT Brain without contrast. CLINICAL INDICATION: Anoxic encephalopathy TECHNIQUE: A CT of the brain was performed on a multidetector CT scanner utilizing axial sections from the skull base through the vertex without contrast. Images were reviewed on a high-resolution [employer] workstation. Exam CTDI = 41.74 mGy and the DLP = 720.23 mGy-cm. One or more of the following dose reduction techniques were used: Automated exposure control Adjustment of the mA and/or kV according to patient size. Use of iterative reconstruction technique. COMPARISON: None available FINDINGS: There is diffuse loss of the miguel-white matter differentiation. There is diffuse effacement of the cortical sulci. There is crowding at the foramen magnum with minimal tonsillar ectopia. The ventri cles are normal in size and configuration. There is no evidence of intracranial hemorrhage, mass eff ect or midline shift. No abnormal intra-axial or extra-axial fluid collections are seen. The osseou s structures are unremarkable. There is layering fluid in paranasal sinuses. A call report was made to [facility] LEADCLAUDIA Cortez at 11/29/2016 10:29:54 PM following completion of the examinatio n. IMPRESSION: 1. Diffuse loss of miguel-white matter differentiation and effacement of the cortical sulci in keeping with clinically suspected anoxic/hypoxic brain injury. 2. No intracranial hemorrhage, mass effect or midline shift. 3. Crowding at the foramen magnum with minimal tonsillar ectopia. RPTAT: HHO .Letty Guthrie MD, MD Date Time Electronically viewed and signed by .Letty Guthrie MD, on 11/29/2016 22:32 .O/
[2016-11-30] VITALS (85 sets, daily range): BP systolic 90–114; BP diastolic 66–83; PULSE 73–80; RESP 10–24
[2016-11-30] MEDS: ACCU-CHEK XX SCH ×22 (00:30→23:33)
[2016-11-30] MEDS ORDERED: NORepinephrine 8MG/250 ML BAG ONE (03:47)
[2016-11-30] MEDS: PANTOPRAZOLE 40 MG INJ IV SCH (05:15)
[2016-11-30 05:45] LABS: ADD SCAN DIFF NO
[2016-11-30 05:54] LABS: BASOPHILS % 0.2 % (0.0-2.0); EOSINOPHILS # 0.1 10^3/ul (0.0-0.5); EOSINOPHILS % 0.4 % (0.0-7.0); HEMATOCRIT 33.9 % (42.0-52.0); HEMOGLOBIN 11.4 g/dl (14.0-18.0); LYMPHOCYTES # 1.6 10^3/ul (0.8-2.9); LYMPHOCYTES % 9.5 % (15.0-51.0); MEAN CORPUSCULAR HEMOGLOBIN 32.6 pg (29.0-33.0); MEAN CORPUSCULAR HGB CONC 33.6 g/dl (32.0-37.0); MEAN CORPUSCULAR VOLUME 96.9 fl (82.0-101.0); MONOCYTE # 0.9 10^3/ul (0.3-0.9); MONOCYTES % 5.2 % (0.0-11.0); NEUTROPHIL # 13.5 10^3/ul (1.6-7.5); PLATELET COUNT 260 10^3/UL (140-415); RED CELL DISTRIBUTION WIDTH 13.1 % (11.5-14.5); WHITE BLOOD COUNT 16.3 10^3/ul (4.8-10.8)
[2016-11-30 06:54] LABS: CREATININE 8.83 mg/dl (0.61-1.24); POTASSIUM 4.1 mmol/L (3.5-5.1)
--- NOTE | 2016-11-30 07:08 | PN ---
Date/Time of Note Date/Time of Note DATE: 11/30/16 TIME: 07:04 Assessment/Plan VTE Prophylaxis VTE Prophylaxis Intervention: heparin Lines/Catheters IV Catheter Type (from Nrs): Central Line Central line still needed: Yes Urinary Cath still in place: Yes Reason Cath still needed: other (indicate) Assessment/Plan Chief Complaint/Hosp Course 1. acute LA 2. VT cardiac arrest 3. shock: cardiogenic +/- septic 4. Afib 5. CHF: 6. Acute hypoxemic resp failure 7. encephalopathy: anoxic brain injury. 8. ACUTE RENAL FAILURE: due to ATN ( doubt due to contrast since only 15 cc was used and pt had already been anuric and with acute elevation of creatinine prio to the angiogram). 9. DM 10. elevated LFT 11. recurrent FEVER & SEPSIS 12. SEVERE CARDIOMYOPATHY 13. moderate CAD: cont ASA ASA cont vent support wean off pressors if tolerated. echo reviewed pt with severe LV dysfx. replace lytes prn . diuresis as per renal. Antibiotic has been started by her medicine/ pulmonary vent support will be continued continue the ICU care. f/u with neuro rec. prognosis is poor. more than 38 minutes critical care time was reminded she is patient's including procedures. Problems: Subjective 24 Hr Interval Summary Free Text/Dictation CARDIOLOGY/ CRITICAL CARE FOLLOW UP NOTE d/w staff and physicians. pt remains intubated on vent in ICU but has been able to wean down on levophed. BP is more stable nonverbral pt with better urine output. pt remains in NSR. pt with no significant neurological improvement meds reviewed. General: obese man intubated on vent. nonresponsive but sedated. HEENT: NC/AT. pupils are constricted. round. s/p intubation on vent NECK: . no stridor. CV: irregularly irregular. systolic murmur; no gallop or rubs. PULM: diffuse rhonchi. GI: obese soft , NT, ND, no rebound or guarding Extremity: + B/L LE edema. no clubbing. neuro: unresponsive. Psych: calm rectal: deferred : + scrotal edema Exam/Review of Systems Vital Signs Vitals Vital Signs Date Time Temp Pulse Resp B/P Pulse Ox O2 Delivery O2 Flow Rate FiO2 11/30/16 05:40 24 100 30 11/30/16 05:15 74 102/77 Mechanical Ventilator 11/30/16 04:00 99.9 Intake and Output 11/29/16 11/29/16 11/30/16 15:00 23:00 07:00 Intake Total 663.25 ml 366.0 ml 213.5 ml Output Total 900 ml 900 ml 650 ml Balance -236.75 ml -534.0 ml -436.5 ml Results Result Diagram: 11/30/16 0500 11/30/16 0500 Results 24 hrs Laboratory Tests Test 11/29/16 07:50 11/29/16 08:41 11/29/16 09:33 11/29/16 11:14 Bedside Glucose 111 126 123 156 Test 11/29/16 12:53 11/29/16 14:55 11/29/16 17:11 11/29/16 19:58 Bedside Glucose 125 112 113 93 Test 11/29/16 21:57 11/30/16 00:07 11/30/16 02:18 11/30/16 04:12 Bedside Glucose 110 119 117 120 Test 11/30/16 05:00 11/30/16 06:10 White Blood Count 16.3 #H Red Blood Count 3.50 L Hemoglobin 11.4 L Hematocrit 33.9 L Mean Corpuscular Volume 96.9 Mean Corpuscular Hemoglobin 32.6 Mean Corpuscular Hemoglobin Concent 33.6 Red Cell Distribution Width 13.1 Platelet Count 260 Mean Platelet Volume 11.0 H Neutrophils % 83.0 H Lymphocytes % 9.5 L Monocytes % 5.2 Eosinophils % 0.4 Basophils % 0.2 Nucleated Red Blood Cells % 0.0 Neutrophils # 13.5 H Lymphocytes # 1.6 Monocytes # 0.9 Eosinophils # 0.1 Basophils # 0.0 Nucleated Red Blood Cells # 0.0 Sodium Level 134 L Potassium Level 4.1 Chloride Level 101 Carbon Dioxide Level 18 L Anion Gap 19 H Blood Urea Nitrogen 77 H Creatinine 8.83 H Glucose Level 112 Calcium Level 8.0 L Bedside Glucose 125 Medications Medications Current Medications Dopamine HCl/ Dextrose 250 ml @ 7.275 mls/ hr TITRATE IV Last administered on 11/28/16 17:40; Admin Dose 21.8 MLS/HR; Start 11/27/16 at 05:00 Pantoprazole 40 mg 40 mg DAILY@06 IV Last administered on 11/30/16 05:15; Admin Dose 40 MG; Start 11/28/16 at 06:00 Norepinephrine 16 mg/Dextrose 500 ml @ 1.87 mls/hr TITRATE IV Last administered on 11/29/16 21:49; Admin Dose 7.5 MLS/HR; Start 11/27/16 at 09:00 Midazolam HCl (Versed) 50 ml @ 1 mls/hr TITRATE IV Last administered on 06:23; Admin Dose 5 MLS/HR; Start 11/27/16 at 10:30 Acetaminophen 650 mg 650 mg Q6H PRN PO PAIN AND OR ELEVATED TEMP; Start at 12:00 Sodium Chloride (NS) 1,000 ml @ 20 mls/hr Q24H IV Last administered on 10:06; Admin Dose 100 MLS/HR; Start 11/27/16 at 12:30 Diagnostic Test (Pha) (Accu-Chek) 1 ea Q1H XX Last administered on 11/29/16 17: 18; Admin Dose 1 EA; Start 11/27/16 at 15:30 Dextrose (D50w Syringe) 25 ml Q15M PRN IV Till BS 80 mg/dL or above x2; Start 11/27/16 at 15:30 Dextrose (D50w Syringe) 50 ml Q15M PRN IV Till BS 80 mg/dL or above x2; Start 11/27/16 at 15:30 Heparin Sodium (Porcine) (Heparin (5000 Units/0.5 ml)) 5,000 unit BID SC Last administered on 11/29/16 20:53; Admin Dose 5,000 UNIT; Start 11/27/16 at 21:00 Aspirin (Aspirin) 81 mg DAILY NGT Last administered on 11/29/16 08:35; Admin Dose 81 MG; Start 11/28/16 at 09:00 Acetaminophen 650 mg 650 mg Q4H PRN NGT PAIN AND OR ELEVATED TEMP Last administered on 11/29/16 08:35; Admin Dose 650 MG; Start 11/27/16 at 17:32 Fluconazole/ Sodium Chloride 50 ml @ 50 mls/hr Q24H IVPB Last administered on 12:52; Admin Dose 50 MLS/HR; Start 11/28/16 at 10:15 Meropenem (Merrem 500 Mg/ 100 ml (Pmx)) 100 ml @ 200 mls/hr Q24H IVPB Last administered on 11/29/16t 17:17; Admin Dose 200 MLS/HR; Start 11/29/16 at 17:00 NHI MAO MD Nov 30, 2016 07:08
--- NOTE | 2016-11-30 07:50 | CONS ---
Date/Time of Note Date/Time of Note DATE: 11/30/16 TIME: 07:46 Assessment/Plan Assessment/Plan Chief Complaint/Hosp Course Pt admitted with V-fib cardiac arrest hypotensive and has remained on pressors with knon "liver dz" and hx elevated sugar. Problems: Additional Assessment/Plan 1. Renal fx continues to worsen, await decision regarding code status and family wishes. If all supportive care is to continue and if renal fx does not improve will need HD tomm after vasc access placed. Lytes are nl. 2. Will again diurese with bumex drip given cxr noted yesterday 3. S/P CO Consultation Date/Type/Reason Admit Date/Time Nov 27, 2016 at 05:46 Initial Consult Date 11/27/16 Type of Consultation: Infectious disease Referring Provider: TALIA LANGE 24 HR Interval Summary Subjective hx not possible: other (intubated and sedated) Exam/Review of Systems Vital Signs Vitals Vital Signs Date Time Temp Pulse Resp B/P Pulse Ox O2 Delivery O2 Flow Rate FiO2 11/30/16 07:04 24 98 30 11/30/16 05:15 74 102/77 Mechanical Ventilator 11/30/16 04:00 99.9 Intake and Output 11/29/16 11/29/16 11/30/16 14:59 22:59 06:59 Intake Total 664.50 ml 387.25 ml 244.0 ml Output Total 800 ml 900 ml 750 ml Balance -135.50 ml -512.75 ml -506.0 ml Exam Neck: No jvd Respiratory: clear to auscultation, diminished breath sounds Cardiovascular: regular rate and rhythm Gastrointestinal: distended (mild), soft Extremities: No edema Results Result Diagram: 11/30/16 0500 11/30/16 0500 Results 24 hrs Laboratory Tests Test 11/29/16 07:50 11/29/16 08:41 11/29/16 09:33 11/29/16 11:14 Bedside Glucose 111 126 123 156 Test 11/29/16 12:53 11/29/16 14:55 11/29/16 17:11 11/29/16 19:58 Bedside Glucose 125 112 113 93 Test 11/29/16 21:57 11/30/16 00:07 11/30/16 02:18 11/30/16 04:12 Bedside Glucose 110 119 117 120 Test 11/30/16 05:00 11/30/16 06:10 White Blood Count 16.3 #H Red Blood Count 3.50 L Hemoglobin 11.4 L Hematocrit 33.9 L Mean Corpuscular Volume 96.9 Mean Corpuscular Hemoglobin 32.6 Mean Corpuscular Hemoglobin Concent 33.6 Red Cell Distribution Width 13.1 Platelet Count 260 Mean Platelet Volume 11.0 H Neutrophils % 83.0 H Lymphocytes % 9.5 L Monocytes % 5.2 Eosinophils % 0.4 Basophils % 0.2 Nucleated Red Blood Cells % 0.0 Neutrophils # 13.5 H Lymphocytes # 1.6 Monocytes # 0.9 Eosinophils # 0.1 Basophils # 0.0 Nucleated Red Blood Cells # 0.0 Sodium Level 134 L Potassium Level 4.1 Chloride Level 101 Carbon Dioxide Level 18 L Anion Gap 19 H Blood Urea Nitrogen 77 H Creatinine 8.83 H Glucose Level 112 Calcium Level 8.0 L Bedside Glucose 125 Medications Medications Current Medications Dopamine HCl/ Dextrose 250 ml @ 7.275 mls/ hr TITRATE IV Last administered on 11/28/16 17:40; Admin Dose 21.8 MLS/HR; Start 11/27/16 at 05:00 Pantoprazole 40 mg 40 mg DAILY@06 IV Last administered on 11/30/16 05:15; Admin Dose 40 MG; Start 11/28/16 at 06:00 Norepinephrine 16 mg/Dextrose 500 ml @ 1.87 mls/hr TITRATE IV Last administered on 11/29/16 21:49; Admin Dose 7.5 MLS/HR; Start 11/27/16 at 09:00 Midazolam HCl (Versed) 50 ml @ 1 mls/hr TITRATE IV Last administered on 06:23; Admin Dose 5 MLS/HR; Start 11/27/16 at 10:30 Acetaminophen 650 mg 650 mg Q6H PRN PO PAIN AND OR ELEVATED TEMP; Start at 12:00 Sodium Chloride (NS) 1,000 ml @ 20 mls/hr Q24H IV Last administered on 10:06; Admin Dose 100 MLS/HR; Start 11/27/16 at 12:30 Diagnostic Test (Pha) (Accu-Chek) 1 ea Q1H XX Last administered on 11/29/16 17: 18; Admin Dose 1 EA; Start 11/27/16 at 15:30 Dextrose (D50w Syringe) 25 ml Q15M PRN IV Till BS 80 mg/dL or above x2; Start 11/27/16 at 15:30 Dextrose (D50w Syringe) 50 ml Q15M PRN IV Till BS 80 mg/dL or above x2; Start 11/27/16 at 15:30 Heparin Sodium (Porcine) (Heparin (5000 Units/0.5 ml)) 5,000 unit BID SC Last administered on 11/29/16 20:53; Admin Dose 5,000 UNIT; Start 11/27/16 at 21:00 Aspirin (Aspirin) 81 mg DAILY NGT Last administered on 11/29/16 08:35; Admin Dose 81 MG; Start 11/28/16 at 09:00 Acetaminophen 650 mg 650 mg Q4H PRN NGT PAIN AND OR ELEVATED TEMP Last administered on 11/29/16 08:35; Admin Dose 650 MG; Start 11/27/16 at 17:32 Fluconazole/ Sodium Chloride 50 ml @ 50 mls/hr Q24H IVPB Last administered on 12:52; Admin Dose 50 MLS/HR; Start 11/28/16 at 10:15 Meropenem (Merrem 500 Mg/ 100 ml (Pmx)) 100 ml @ 200 mls/hr Q24H IVPB Last administered on 11/29/16 17:17; Admin Dose 200 MLS/HR; Start 11/29/16 at 17:00 WANDY THOMAS MD Nov 30, 2016 07:49
[2016-11-30] MEDS: ASPIRIN 81 MG TAB NGT SCH (08:20)
[2016-11-30] MEDS: HEPARIN 5,000 UNIT/0.5 ML VIAL SC SCH ×2 (08:21→21:00)
[2016-11-30] MEDS: SOD CHLORIDE 0.9% 1,000 ML IV SCH (08:30)
--- NOTE | 2016-11-30 09:16 | PN ---
Date/Time of Note Date/Time of Note DATE: 11/30/16 TIME: 09:11 Assessment/Plan VTE Prophylaxis VTE Prophylaxis Intervention: heparin Lines/Catheters IV Catheter Type (from Nrs): Central Line Central line still needed: Yes Urinary Cath still in place: Yes Reason Cath still needed: urinary retention Assessment/Plan Chief Complaint/Hosp Course Assessment and plan: 51-year-old male status post cardiac arrest, non-ST elevation MS, renal insufficiency, intubated, on pressor support. 1. 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 Off heparin IV drip now. - Continue pressor support, follow cardiology recommendations. - continue insulin drip as well. - per CV team, med mngt - awaiting palliative team consult - EEG and Neuro consult as well appreciated - f/u EEG results 2. Renal failure - sec to ATN from hypoperfusion/sepsis (and possibly contrast from [facility]). Patient's creatinine has gone up from 1.36-> 2.44 -> 4.58 -> 7 -> 8. UO is low, followed by renal team. -f/u renal consult rec's - for Bumex again today - monitor ins and outs, check BMP in the a.m. - may need HD soon per renal given worsening renal fct 3. Respiratory failure: Again patient was intubated in the ER. - Continue duo nebs as needed, follow pulmonary recommendations for vent management 4. Prediabetes: A1c = 7.3 - continue insulin drip as mentioned in #1 5. GI prophylaxis: PPI 6. DVT prophylaxis: heparin 7. Shock -likely combination of septic and cardiogenic shock - sepsis possible source sec to UTI? + Fevers still (sec to infx vs central??). ECHO = EF = 30%. - continue broad-spectrum antibiotics - f/u ID consult as well - continue to trend the white blood cell count, follow final culture results - Tylenol as needed pain and fevers. Tentative family meeting later today - f/u with palliative on this. Critical care time spent today = 50 min. Problems: Subjective 24 Hr Interval Summary Free Text/Dictation Seen by Neuro team yesterday, Received Bumex again yesterday. Still on insulin drip and pressor x 1. Exam/Review of Systems Vital Signs Vitals Vital Signs Date Time Temp Pulse Resp B/P Pulse Ox O2 Delivery O2 Flow Rate FiO2 11/30/16 07:04 24 98 30 11/30/16 05:15 74 102/77 Mechanical Ventilator 11/30/16 04:00 99.9 Intake and Output 11/29/16 11/29/16 11/30/16 15:00 23:00 07:00 Intake Total 663.25 ml 366.0 ml 213.5 ml Output Total 900 ml 900 ml 650 ml Balance -236.75 ml -534.0 ml -436.5 ml Exam General: Patient is intubated, lying in bed, on pressors HEENT: unable to fully assess at this time Neck: Supple Respiratory: Distant breath sounds bilaterally Cardiovascular: S1-S2 heard, no rubs or gallops Abdomen: Soft, nontender, nondistended, no rebound or guarding, normal bowel sounds Muscular skeletal: No lower extremity edema bilaterally Neurologic: Unable to fully assess because patient is intubated Results Result Diagram: 11/30/16 0500 11/30/16 0500 Results 24 hrs Laboratory Tests Test 11/29/16 09:33 11/29/16 11:14 11/29/16 12:53 11/29/16 14:55 Bedside Glucose 123 156 125 112 Test 11/29/16 17:11 11/29/16 19:58 11/29/16 21:57 11/30/16 00:07 Bedside Glucose 113 93 110 119 Test 11/30/16 02:18 11/30/16 04:12 11/30/16 05:00 11/30/16 06:10 Bedside Glucose 117 120 125 White Blood Count 16.3 #H Red Blood Count 3.50 L Hemoglobin 11.4 L Hematocrit 33.9 L Mean Corpuscular Volume 96.9 Mean Corpuscular Hemoglobin 32.6 Mean Corpuscular Hemoglobin Concent 33.6 Red Cell Distribution Width 13.1 Platelet Count 260 Mean Platelet Volume 11.0 H Neutrophils % 83.0 H Lymphocytes % 9.5 L Monocytes % 5.2 Eosinophils % 0.4 Basophils % 0.2 Nucleated Red Blood Cells % 0.0 Neutrophils # 13.5 H Lymphocytes # 1.6 Monocytes # 0.9 Eosinophils # 0.1 Basophils # 0.0 Nucleated Red Blood Cells # 0.0 Sodium Level 134 L Potassium Level 4.1 Chloride Level 101 Carbon Dioxide Level 18 L Anion Gap 19 H Blood Urea Nitrogen 77 H Creatinine 8.83 H Glucose Level 112 Calcium Level 8.0 L Test 11/30/16 08:16 Bedside Glucose 108 Medications Medications Current Medications Dopamine HCl/ Dextrose 250 ml @ 7.275 mls/ hr TITRATE IV Last administered on 11/28/16 17:40; Admin Dose 21.8 MLS/HR; Start 11/27/16 at 05:00 Pantoprazole 40 mg 40 mg DAILY@06 IV Last administered on 11/30/16 05:15; Admin Dose 40 MG; Start 11/28/16 at 06:00 Norepinephrine 16 mg/Dextrose 500 ml @ 1.87 mls/hr TITRATE IV Last administered on 11/29/16 21:49; Admin Dose 7.5 MLS/HR; Start 11/27/16 at 09:00 Midazolam HCl (Versed) 50 ml @ 1 mls/hr TITRATE IV Last administered on 06:23; Admin Dose 5 MLS/HR; Start 11/27/16 at 10:30 Acetaminophen 650 mg 650 mg Q6H PRN PO PAIN AND OR ELEVATED TEMP; Start at 12:00 Sodium Chloride (NS) 1,000 ml @ 20 mls/hr Q24H IV Last administered on 10:06; Admin Dose 100 MLS/HR; Start 11/27/16 at 12:30 Diagnostic Test (Pha) (Accu-Chek) 1 ea Q1H XX Last administered on 11/30/16 08: 18; Admin Dose 1 EA; Start 11/27/16 at 15:30 Dextrose (D50w Syringe) 25 ml Q15M PRN IV Till BS 80 mg/dL or above x2; Start 11/27/16 at 15:30 Dextrose (D50w Syringe) 50 ml Q15M PRN IV Till BS 80 mg/dL or above x2; Start 11/27/16 at 15:30 Heparin Sodium (Porcine) (Heparin (5000 Units/0.5 ml)) 5,000 unit BID SC Last administered on 11/30/16 08:21; Admin Dose 5,000 UNIT; Start 11/27/16 at 21:00 Aspirin (Aspirin) 81 mg DAILY NGT Last administered on 11/30/16 08:20; Admin Dose 81 MG; Start 11/28/16 at 09:00 Acetaminophen 650 mg 650 mg Q4H PRN NGT PAIN AND OR ELEVATED TEMP Last administered on 11/29/16 08:35; Admin Dose 650 MG; Start 11/27/16 at 17:32 Fluconazole/ Sodium Chloride 50 ml @ 50 mls/hr Q24H IVPB Last administered on 12:52; Admin Dose 50 MLS/HR; Start 11/28/16 at 10:15 Meropenem 100 ml @ 200 mls/hr Q24H IVPB Last administered on 11/29/16 17:17; Admin Dose 200 MLS/HR; Start 11/29/16 at 17:00 Bumetanide/ Dextrose/Water (Bumex/D5W) 120 ml @ 10 mls/hr Q12H IV ; Start at 09:30; Stop 11/30/16 at 21:29 TALIA LANGE Nov 30, 2016 09:16
[2016-11-30] MEDS ORDERED: BUMETANIDE 12 MG in DEXTROSE 5% 72 ML IV SCH (09:30)
[2016-11-30] MEDS: FLUCONAZOLE 100 MG/NS (PMX) 50 ML IVPB SCH (10:00)
--- NOTE | 2016-11-30 10:46 | CONS ---
Date/Time of Note Date/Time of Note DATE: 11/30/16 TIME: 10:44 Consult Date/Type/Reason Admit Date/Time Nov 27, 2016 at 05:46 Initial Consult Date 11/27/16 Type of Consultation: Pulmonary ICU Ordering Provider: TALIA LANGE Patient remains stable this morning no new events Does not open eyes or follow commands Breathes over the set ventilator rate Objective Vital Signs Date Time Temp Pulse Resp B/P Pulse Ox O2 Delivery O2 Flow Rate FiO2 11/30/16 10:30 75 24 98/73 97 11/30/16 10:00 Mechanical Ventilator 11/30/16 09:13 30 11/30/16 08:00 99.1 Intake and Output 11/29/16 11/29/16 11/30/16 15:00 23:00 07:00 Intake Total 663.25 ml 366.0 ml 213.5 ml Output Total 900 ml 900 ml 650 ml Balance -236.75 ml -534.0 ml -436.5 ml Exam PHYSICAL EXAMINATION GENERAL: Morbidly obese gentleman intubated on mechanical ventilation VITAL SIGNS: see below. HEENT: Pupils equal, round, and reactive to light. CARDIAC: S1, S2, 1/6 systolic ejection murmur CHEST: Diminished air entry bilaterally. ABDOMEN: Mildly distended. Bowel sounds present no guarding or rebound EXTREMITIES: No cyanosis, clubbing edema +1 NEUROLOGIC: Generalized weakness Results/Medications Result Diagram: 11/30/16 0500 11/30/16 0500 Results 24 hrs Laboratory Tests Test 11/29/16 11:14 11/29/16 12:53 11/29/16 14:55 11/29/16 17:11 Bedside Glucose 156 125 112 113 Test 11/29/16 19:58 11/29/16 21:57 11/30/16 00:07 11/30/16 02:18 Bedside Glucose 93 110 119 117 Test 11/30/16 04:12 11/30/16 05:00 11/30/16 06:10 11/30/16 08:16 Bedside Glucose 120 125 108 White Blood Count 16.3 #H Red Blood Count 3.50 L Hemoglobin 11.4 L Hematocrit 33.9 L Mean Corpuscular Volume 96.9 Mean Corpuscular Hemoglobin 32.6 Mean Corpuscular Hemoglobin Concent 33.6 Red Cell Distribution Width 13.1 Platelet Count 260 Mean Platelet Volume 11.0 H Neutrophils % 83.0 H Lymphocytes % 9.5 L Monocytes % 5.2 Eosinophils % 0.4 Basophils % 0.2 Nucleated Red Blood Cells % 0.0 Neutrophils # 13.5 H Lymphocytes # 1.6 Monocytes # 0.9 Eosinophils # 0.1 Basophils # 0.0 Nucleated Red Blood Cells # 0.0 Sodium Level 134 L Potassium Level 4.1 Chloride Level 101 Carbon Dioxide Level 18 L Anion Gap 19 H Blood Urea Nitrogen 77 H Creatinine 8.83 H Glucose Level 112 Calcium Level 8.0 L Test 11/30/16 10:09 Bedside Glucose 106 Medications Current Medications Dopamine HCl/ Dextrose 250 ml @ 7.275 mls/ hr TITRATE IV Last administered on 11/28/16 17:40; Admin Dose 21.8 MLS/HR; Start 11/27/16 at 05:00 Pantoprazole 40 mg 40 mg DAILY@06 IV Last administered on 11/30/16 05:15; Admin Dose 40 MG; Start 11/28/16 at 06:00 Norepinephrine 16 mg/Dextrose 500 ml @ 1.87 mls/hr TITRATE IV Last administered on 11/29/16 21:49; Admin Dose 7.5 MLS/HR; Start 11/27/16 at 09:00 Midazolam HCl (Versed) 50 ml @ 1 mls/hr TITRATE IV Last administered on 06:23; Admin Dose 5 MLS/HR; Start 11/27/16 at 10:30 Acetaminophen 650 mg 650 mg Q6H PRN PO PAIN AND OR ELEVATED TEMP; Start at 12:00 Sodium Chloride (NS) 1,000 ml @ 20 mls/hr Q24H IV Last administered on 10:06; Admin Dose 100 MLS/HR; Start 11/27/16 at 12:30 Diagnostic Test (Pha) (Accu-Chek) 1 ea Q1H XX Last administered on 11/30/16 10: 12; Admin Dose 1 EA; Start 11/27/16 at 15:30 Dextrose (D50w Syringe) 25 ml Q15M PRN IV Till BS 80 mg/dL or above x2; Start 11/27/16 at 15:30 Dextrose (D50w Syringe) 50 ml Q15M PRN IV Till BS 80 mg/dL or above x2; Start 11/27/16 at 15:30 Heparin Sodium (Porcine) (Heparin (5000 Units/0.5 ml)) 5,000 unit BID SC Last administered on 11/30/16 08:21; Admin Dose 5,000 UNIT; Start 11/27/16 at 21:00 Aspirin (Aspirin) 81 mg DAILY NGT Last administered on 11/30/16 08:20; Admin Dose 81 MG; Start 11/28/16 at 09:00 Acetaminophen 650 mg 650 mg Q4H PRN NGT PAIN AND OR ELEVATED TEMP Last administered on 11/29/16 08:35; Admin Dose 650 MG; Start 11/27/16 at 17:32 Fluconazole/ Sodium Chloride 50 ml @ 50 mls/hr Q24H IVPB Last administered on 10:00; Admin Dose 50 MLS/HR; Start 11/28/16 at 10:15 Meropenem 100 ml @ 200 mls/hr Q24H IVPB Last administered on 11/29/16 17:17; Admin Dose 200 MLS/HR; Start 11/29/16 at 17:00 Bumetanide/ Dextrose/Water (Bumex/D5W) 120 ml @ 10 mls/hr Q12H IV Last administered on 11/30/16 10:00; Admin Dose 10 MLS/HR; Start 11/30/16 at 09:30; Stop 11/30/16 at 21:29 Assessment/Plan Chief Complaint/Hosp Course Assessment 1. Ventricular fibrillation with cardiac arrest. 2. Possible underlying coronary artery disease. Echocardiogram shows decreased ejection fraction with multiple wall motion abnormalities. 3. Possible aspiration pneumonia. Septic shock. 4. Hypoxemic respiratory failure secondary to above. 5. Acute renal failure likely ATN injury from hypoperfusion. 6. Significant metabolic acidosis. Slowly improving. 7. Likely severe anoxic brain injury following cardiac arrest Plan 1. Continue mechanical ventilation 2. Intravenous bicarbonate, renal recommendations may require hemodialysis. 3. Broad-spectrum antibiotics for possible aspiration pneumonia 4. Continue cardiac recommendations, cardiac catheterization findings noted 5. DVT and GI prophylaxis 6. Consider neurology evaluation, EEG findings noted 7. Continue vasopressor support Disposition Continue ICU care Stable for transfer to [place] now on low-dose Levophed will likely require discussion about end-of-life organ donation. Problems: STEVE PLAZA MD, [facility] Nov 30, 2016 10:46
--- NOTE | 2016-11-30 11:54 | CONS ---
Date/Time of Note Date/Time of Note DATE: 11/30/16 TIME: 11:53 Assessment/Plan Assessment/Plan Chief Complaint/Hosp Course No acute changes overnight. Patient remains intubated, on insulin and Levophed drip, unresponsive. Vital signs: T-max 100.2 T-current 99.1 pulse 78 respirations 24 blood pressure 98/73 saturation 97 on 30 FiO2 Laboratory data: WBC 16.3 H&H 11.4 and 33.9 platelets 260 neutrophils 83 BUN 77 creatinine 8.83 Indwelling's: Endotracheal tube NG tube Linda right femoral triple lumen catheter Antimicrobials: Meropenem vancomycin fluconazole Physical examination: Morbidly obese middle-aged man who is intubated, in no distress. Head atraumatic normocephalic, sclera nonicteric. Neck is obese. Chest rise symmetrical, breath sounds diminished basis. Heart S1-S2. Abdomen obese soft bowel tones hypoactive. Extremities with trace edema, with acrocyanosis. Assessment: 1. Anoxic encephalopathy, status post cardiac arrest 2. Persistent fevers with leukocytosis, on empiric antibiotics 3. Acute respiratory failure 4. Acute renal failure 5. Shock, multifactorial Plan: Remains hemodynamically unstable, so far cultures have been negative, he is being followed by multiple consultants, pending transfer to [facility] Discussed with staff Problems: Consultation Date/Type/Reason Admit Date/Time Nov 27, 2016 at 05:46 Initial Consult Date 11/27/16 Type of Consultation: ID Referring Provider: TALIA LANGE Exam/Review of Systems Vital Signs Vitals Vital Signs Date Time Temp Pulse Resp B/P Pulse Ox O2 Delivery O2 Flow Rate FiO2 11/30/16 11:33 78 24 100 30 11/30/16 10:30 98/73 11/30/16 10:00 Mechanical Ventilator 11/30/16 08:00 99.1 Intake and Output 11/29/16 11/29/16 11/30/16 15:00 23:00 07:00 Intake Total 663.25 ml 366.0 ml 213.5 ml Output Total 900 ml 900 ml 650 ml Balance -236.75 ml -534.0 ml -436.5 ml Results Result Diagram: 11/30/16 0500 11/30/16 0500 Results 24 hrs Laboratory Tests Test 11/29/16 12:53 11/29/16 14:55 11/29/16:11 11/29/16 19:58 Bedside Glucose 125 112 113 93 Test 11/29/16 21:57 11/30/16 00:07 11/30/16 02:18 11/30/16 04:12 Bedside Glucose 110 119 117 120 Test 11/30/16 05:00 11/30/16 06:10 11/30/16 08:16 11/30/16 10:09 White Blood Count 16.3 #H Red Blood Count 3.50 L Hemoglobin 11.4 L Hematocrit 33.9 L Mean Corpuscular Volume 96.9 Mean Corpuscular Hemoglobin 32.6 Mean Corpuscular Hemoglobin Concent 33.6 Red Cell Distribution Width 13.1 Platelet Count 260 Mean Platelet Volume 11.0 H Neutrophils % 83.0 H Lymphocytes % 9.5 L Monocytes % 5.2 Eosinophils % 0.4 Basophils % 0.2 Nucleated Red Blood Cells % 0.0 Neutrophils # 13.5 H Lymphocytes # 1.6 Monocytes # 0.9 Eosinophils # 0.1 Basophils # 0.0 Nucleated Red Blood Cells # 0.0 Sodium Level 134 L Potassium Level 4.1 Chloride Level 101 Carbon Dioxide Level 18 L Anion Gap 19 H Blood Urea Nitrogen 77 H Creatinine 8.83 H Glucose Level 112 Calcium Level 8.0 L Bedside Glucose 125 108 106 Test 11/30/16 11:45 Bedside Glucose 120 Medications Medications Current Medications Dopamine HCl/ Dextrose 250 ml @ 7.275 mls/ hr TITRATE IV Last administered on 11/28/16 17:40; Admin Dose 21.8 MLS/HR; Start 11/27/16 at 05:00 Pantoprazole 40 mg 40 mg DAILY@06 IV Last administered on 11/30/16 05:15; Admin Dose 40 MG; Start 11/28/16 at 06:00 Norepinephrine 16 mg/Dextrose 500 ml @ 1.87 mls/hr TITRATE IV Last administered on 11/29/16 21:49; Admin Dose 7.5 MLS/HR; Start 11/27/16 at 09:00 Midazolam HCl (Versed) 50 ml @ 1 mls/hr TITRATE IV Last administered on 06:23; Admin Dose 5 MLS/HR; Start 11/27/16 at 10:30 Acetaminophen 650 mg 650 mg Q6H PRN PO PAIN AND OR ELEVATED TEMP; Start at 12:00 Sodium Chloride (NS) 1,000 ml @ 20 mls/hr Q24H IV Last administered on 10:06; Admin Dose 100 MLS/HR; Start 11/27/16 at 12:30 Diagnostic Test (Pha) (Accu-Chek) 1 ea Q1H XX Last administered on 11/30/16 10: 12; Admin Dose 1 EA; Start 11/27/16 at 15:30 Dextrose (D50w Syringe) 25 ml Q15M PRN IV Till BS 80 mg/dL or above x2; Start 11/27/16 at 15:30 Dextrose (D50w Syringe) 50 ml Q15M PRN IV Till BS 80 mg/dL or above x2; Start 11/27/16 at 15:30 Heparin Sodium (Porcine) (Heparin (5000 Units/0.5 ml)) 5,000 unit BID SC Last administered on 11/30/16 08:21; Admin Dose 5,000 UNIT; Start 11/27/16 at 21:00 Aspirin (Aspirin) 81 mg DAILY NGT Last administered on 11/30/16 08:20; Admin Dose 81 MG; Start 11/28/16 at 09:00 Acetaminophen 650 mg 650 mg Q4H PRN NGT PAIN AND OR ELEVATED TEMP Last administered on 11/29/16 08:35; Admin Dose 650 MG; Start 11/27/16 at 17:32 Fluconazole/ Sodium Chloride 50 ml @ 50 mls/hr Q24H IVPB Last administered on 10:00; Admin Dose 50 MLS/HR; Start 11/28/16 at 10:15 Meropenem 100 ml @ 200 mls/hr Q24H IVPB Last administered on 11/29/16 17:17; Admin Dose 200 MLS/HR; Start 11/29/16 at 17:00 Bumetanide/ Dextrose/Water (Bumex/D5W) 120 ml @ 10 mls/hr Q12H IV Last administered on 11/30/16 10:00; Admin Dose 10 MLS/HR; Start 11/30/16 at 09:30; Stop 11/30/16 at 21:29 LATASHA BRUNNER NP Nov 30, 2016 11:53
--- NOTE | 2016-11-30 13:22 | CONS ---
Date/Time of Note Date/Time of Note DATE: 11/30/16 TIME: 13:03 Assessment Additional comments: EEG report DATE OF PROCEDURE: 11/29/2016 INDICATION: A 51-year-old male , s/p CPA DESCRIPTION OF PROCEDURE: Routine EEG was recorded digitally. [id number] and [id number] montages were recorded and reviewed. All impedances were measured and recorded. Cap electrodes were placed in accordance with International 10-20 system of electrode placement. FINDINGS: Intermittently very low amplitude background activity is seen 2-4 Hz , along with multiple and frequent electrical and muscle artifacts. No lateralized slowing, or signs of ongoing electrographic seizures. IMPRESSION: Abnormal study secondary to severe slowing and diminishing of amplitude of background, reflecting severity of anoxic encephalopathy. MIKEL THOMPSON MD Nov 30, 2016 13:13
--- NOTE | 2016-11-30 14:31 | CONS ---
Date/Time of Note Date/Time of Note DATE: 11/30/16 TIME: 14:18 Assessment/Plan Assessment/Plan Additional Assessment/Plan Status post cardiopulmonary arrest Respiratory failure Anoxic encephalopathy Acute renal failure Sepsis History of hypertension History of diabetes Long discussion with patient's family. We have discussed his current medical condition I reviewed results of CT scan and EEG and discussed current condition of other organ systems. We answered all family members questions patient's background was covered with participant we discussed her understanding of his current medical condition hopes acceptable quality of life spheres concerns and strengths. The communication preference was one-on-one through an wood boring machine operator which was done today we briefly touched upon options but patient's family members when I push to make any decisions today but to meet again tomorrow. There are no pain and symptom management issues that need addressing at this time. Patient's will make decisions on her behalf but is my impression is that all family members will have a decision making part CODE STATUS will be addressed tomorrow after family members have a chance to digest the information we discussed today. My impressions her family members will make decisions based on his intended beliefs. for levels of care in the event that the catastrophic injury occurred. His asked why dialyze him if he would not return to his prehospital cognitive status. Based upon this I believe the family is prepared to make very difficult decisions if he continues to deteriorate. Consultation Date/Type/Reason Admit Date/Time Nov 27, 2016 at 05:46 Date of Consultation: Nov 30, 2016 Type of Consultation: Palliative care Hx of Present Illness This is a 51-year-old gentleman who had a witnessed arrest 4 days chart prior to this hospitalization. Patient has been in the intensive care unit and is intubated on low-dose pressors off sedation but has not awakened. Initial neurological studies including CT scan and EEG shows evidence of severe anoxic injury. Patient limits his usual state of health up until 3 days ago when he developed increasing weakness and left arm stiffness family witnessed him collapsing they began cardiopulmonary resuscitation and called paramedics. Prior to this hospitalization he had a history of type 2 diabetes obesity but without any other established history of coronary heart disease. I am asked speak to family members concerning ongoing level of care. Past Medical History Medical History: diabetes, high cholesterol Past Surgical History Past Surgical Hx: other (Right elbow surgery) Social History Alcohol Use: none Smoking Status: Never smoker Drug Use: none Exam/Review of Systems Vital Signs Vitals Vital Signs Date Time Temp Pulse Resp B/P Pulse Ox O2 Delivery O2 Flow Rate FiO2 11/30/16 12:00 79 11/30/16 11:33 24 100 30 11/30/16 10:30 98/73 11/30/16 10:00 Mechanical Ventilator 11/30/16 08:00 99.1 Intake and Output 11/29/16 11/29/16 11/30/16 15:00 23:00 07:00 Intake Total 663.25 ml 366.0 ml 213.5 ml Output Total 900 ml 900 ml 650 ml Balance -236.75 ml -534.0 ml -436.5 ml Exam Head: atraumatic, normocephalic Neck: non-tender, supple Respiratory: clear to auscultation, normal air movement Cardiovascular: nl pulses, regular rate and rhythm Extremities: normal pulses Neurological: other (No oculocephalics) Results Result Diagram: 11/30/16 0500 11/30/16 0500 Results 24 hrs Laboratory Tests Test 11/29/16 14:55 11/29/16 17:11 11/29/16 19:58 11/29/16 21:57 Bedside Glucose 112 113 93 110 Test 11/30/16 00:07 11/30/16 02:18 11/30/16 04:12 11/30/16 05:00 Bedside Glucose 119 117 120 White Blood Count 16.3 #H Red Blood Count 3.50 L Hemoglobin 11.4 L Hematocrit 33.9 L Mean Corpuscular Volume 96.9 Mean Corpuscular Hemoglobin 32.6 Mean Corpuscular Hemoglobin Concent 33.6 Red Cell Distribution Width 13.1 Platelet Count 260 Mean Platelet Volume 11.0 H Neutrophils % 83.0 H Lymphocytes % 9.5 L Monocytes % 5.2 Eosinophils % 0.4 Basophils % 0.2 Nucleated Red Blood Cells % 0.0 Neutrophils # 13.5 H Lymphocytes # 1.6 Monocytes # 0.9 Eosinophils # 0.1 Basophils # 0.0 Nucleated Red Blood Cells # 0.0 Sodium Level 134 L Potassium Level 4.1 Chloride Level 101 Carbon Dioxide Level 18 L Anion Gap 19 H Blood Urea Nitrogen 77 H Creatinine 8.83 H Glucose Level 112 Calcium Level 8.0 L Test 11/30/16 06:10 11/30/16 08:16 11/30/16 10:09 11/30/16 11:45 Bedside Glucose 125 108 106 120 Medications Medications Current Medications Dopamine HCl/ Dextrose 250 ml @ 7.275 mls/ hr TITRATE IV Last administered on 11/28/16 17:40; Admin Dose 21.8 MLS/HR; Start 11/27/16 at 05:00 Pantoprazole 40 mg 40 mg DAILY@06 IV Last administered on 11/30/16 05:15; Admin Dose 40 MG; Start 11/28/16 at 06:00 Norepinephrine 16 mg/Dextrose 500 ml @ 1.87 mls/hr TITRATE IV Last administered on 11/29/16 21:49; Admin Dose 7.5 MLS/HR; Start 11/27/16 at 09:00 Midazolam HCl (Versed) 50 ml @ 1 mls/hr TITRATE IV Last administered on 06:23; Admin Dose 5 MLS/HR; Start 11/27/16 at 10:30 Acetaminophen 650 mg 650 mg Q6H PRN PO PAIN AND OR ELEVATED TEMP; Start at 12:00 Sodium Chloride (NS) 1,000 ml @ 20 mls/hr Q24H IV Last administered on 10:06; Admin Dose 100 MLS/HR; Start 11/27/16 at 12:30 Diagnostic Test (Pha) (Accu-Chek) 1 ea Q1H XX Last administered on 11/30/16 10: 12; Admin Dose 1 EA; Start 11/27/16 at 15:30 Dextrose (D50w Syringe) 25 ml Q15M PRN IV Till BS 80 mg/dL or above x2; Start 11/27/16 at 15:30 Dextrose (D50w Syringe) 50 ml Q15M PRN IV Till BS 80 mg/dL or above x2; Start 11/27/16 at 15:30 Heparin Sodium (Porcine) (Heparin (5000 Units/0.5 ml)) 5,000 unit BID SC Last administered on 11/30/16 08:21; Admin Dose 5,000 UNIT; Start 11/27/16 at 21:00 Aspirin (Aspirin) 81 mg DAILY NGT Last administered on 11/30/16 08:20; Admin Dose 81 MG; Start 11/28/16 at 09:00 Acetaminophen 650 mg 650 mg Q4H PRN NGT PAIN AND OR ELEVATED TEMP Last administered on 11/29/16 08:35; Admin Dose 650 MG; Start 11/27/16 at 17:32 Fluconazole/ Sodium Chloride 50 ml @ 50 mls/hr Q24H IVPB Last administered on 10:00; Admin Dose 50 MLS/HR; Start 11/28/16 at 10:15 Meropenem 100 ml @ 200 mls/hr Q24H IVPB Last administered on 11/29/16 17:17; Admin Dose 200 MLS/HR; Start 11/29/16 at 17:00 Bumetanide/ Dextrose/Water (Bumex/D5W) 120 ml @ 10 mls/hr Q12H IV Last administered on 11/30/16 10:00; Admin Dose 10 MLS/HR; Start 11/30/16 at 09:30; Stop 11/30/16 at 21:29 VITALIY YU Nov 30, 2016 14:31
[2016-11-30] MEDS: INSULIN HUMAN REGULAR 100 UNIT in SOD CHLORIDE 0.9% 99 ML IV SCH (15:07)
--- NOTE | 2016-11-30 16:18 | CONS ---
Date/Time of Note Date/Time of Note DATE: 11/30/16 TIME: 16:17 Consultation Date/Type/Reason Admit Date/Time Nov 27, 2016 at 05:46 Reason for Consultation This is Dr. Janine Cm dictating infectious disease consult on Praveen Martinez date of admission is 11/27/2016, date of consultation is 11/29/2016 date of dictation is 11/30/2016, this is an infectious disease consult reason for consultation is antibiotic management. Praveen Martinez is a 51-year-old male with numerous problems who comes in with cardiac arrest and is being seen for antibiotic management. Past problems: 1. Prediabetes 2. Hypercholesterolemia Acutely the patient was complaining of weakness decreased appetite, and confusion for 3 days prior to admission patient was brought into the emergency room intubated and on pressors. Family noted that he awakened with left arm numbness and fell out of bed. Family started CPR EMS was called, and when the patient arrived in the emergency room his troponins were elevated at 37. There was no sign of any ST elevation on the EKG. Hospital course: Currently patient has a temperature 100.2 is intubated on insulin and Levophed drip and is unresponsive. He has an ET tube and NG tube a Linda catheter and a right femoral triple-lumen catheter. His white count is 16.3 H&H 11.4 33.9 and platelet count of 260,000 BUN/creatinine is 77/8.83 . Blood cultures are negative, urine culture is no growth after 48 hours respiratory culture shows normal respiratory morris. Patient was on vancomycin and meropenem and remains on those antibiotics. Past medical history: Operations: Right elbow surgery Family history: Noncontributory Social history: She does not smoke drink or abuse drugs. Allergies: None to penicillin sulfa foods Medications: Per chart Review of systems: As per HPI On physical examination, patient is intubated on pressors. SHEENT: ET tube, NG tube Neck is supple Chest: Decreased breath sounds at the bases Heart: Without murmur or gallop Abdomen: Soft, nontender, without organosplenomegaly or masses Extremities: Without cyanosis clubbing or edema Rectal genital exams: Linda catheter in place Neurological: Patient is sedated and on pressors. Central line in place Patient is a 51-year-old male status post cardiac arrest with anoxic encephalopathy, he has a right femoral triple-lumen catheter and is on vancomycin and meropenem and fluconazole. He has persistent fevers to 100.2 with leukocytosis of 16.3. We will continue him on current therapy; prognosis is poor I will dictate my findings to the hospitalists and to the various consultants. 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 Past Medical History Medical History: diabetes, high cholesterol Past Surgical History Past Surgical Hx: other (Right elbow surgery) Social History Alcohol Use: none Smoking Status: Never smoker Drug Use: none Exam/Review of Systems Vital Signs Vitals Vital Signs Date Time Temp Pulse Resp B/P Pulse Ox O2 Delivery O2 Flow Rate FiO2 11/30/16 15:17 76 24 96 30 11/30/16 13:15 98/69 11/30/16 13:00 Mechanical Ventilator 11/30/16 12:00 98.1 Intake and Output 11/29/16 11/29/16 11/30/16 15:00 23:00 07:00 Intake Total 663.25 ml 366.0 ml 213.5 ml Output Total 900 ml 900 ml 650 ml Balance -236.75 ml -534.0 ml -436.5 ml Results Result Diagram: 11/30/16 0500 11/30/16 0500 Results 24 hrs Laboratory Tests Test 11/29/16 17:11 11/29/16 19:58 11/29/16 21:57 11/30/16 00:07 Bedside Glucose 113 93 110 119 Test 11/30/16 02:18 11/30/16 04:12 11/30/16 05:00 11/30/16 06:10 Bedside Glucose 117 120 125 White Blood Count 16.3 #H Red Blood Count 3.50 L Hemoglobin 11.4 L Hematocrit 33.9 L Mean Corpuscular Volume 96.9 Mean Corpuscular Hemoglobin 32.6 Mean Corpuscular Hemoglobin Concent 33.6 Red Cell Distribution Width 13.1 Platelet Count 260 Mean Platelet Volume 11.0 H Neutrophils % 83.0 H Lymphocytes % 9.5 L Monocytes % 5.2 Eosinophils % 0.4 Basophils % 0.2 Nucleated Red Blood Cells % 0.0 Neutrophils # 13.5 H Lymphocytes # 1.6 Monocytes # 0.9 Eosinophils # 0.1 Basophils # 0.0 Nucleated Red Blood Cells # 0.0 Sodium Level 134 L Potassium Level 4.1 Chloride Level 101 Carbon Dioxide Level 18 L Anion Gap 19 H Blood Urea Nitrogen 77 H Creatinine 8.83 H Glucose Level 112 Calcium Level 8.0 L Test 11/30/16 08:16 11/30/16 10:09 11/30/16 11:45 11/30/16 14:10 Bedside Glucose 108 106 120 102 Medications Medications Current Medications Dopamine HCl/ Dextrose 250 ml @ 7.275 mls/ hr TITRATE IV Last administered on 11/28/16 17:40; Admin Dose 21.8 MLS/HR; Start 11/27/16 at 05:00 Pantoprazole 40 mg 40 mg DAILY@06 IV Last administered on 11/30/16 05:15; Admin Dose 40 MG; Start 11/28/16 at 06:00 Norepinephrine 16 mg/Dextrose 500 ml @ 1.87 mls/hr TITRATE IV Last administered on 11/29/16 21:49; Admin Dose 7.5 MLS/HR; Start 11/27/16 at 09:00 Midazolam HCl (Versed) 50 ml @ 1 mls/hr TITRATE IV Last administered on 06:23; Admin Dose 5 MLS/HR; Start 11/27/16 at 10:30 Acetaminophen 650 mg 650 mg Q6H PRN PO PAIN AND OR ELEVATED TEMP; Start at 12:00 Sodium Chloride (NS) 1,000 ml @ 20 mls/hr Q24H IV Last administered on 10:06; Admin Dose 100 MLS/HR; Start 11/27/16 at 12:30 Diagnostic Test (Pha) (Accu-Chek) 1 ea Q1H XX Last administered on 11/30/16 15: 07; Admin Dose 1 EA; Start 11/27/16 at 15:30 Dextrose (D50w Syringe) 25 ml Q15M PRN IV Till BS 80 mg/dL or above x2; Start 11/27/16 at 15:30 Dextrose (D50w Syringe) 50 ml Q15M PRN IV Till BS 80 mg/dL or above x2; Start 11/27/16 at 15:30 Heparin Sodium (Porcine) (Heparin (5000 Units/0.5 ml)) 5,000 unit BID SC Last administered on 11/30/16 08:21; Admin Dose 5,000 UNIT; Start 11/27/16 at 21:00 Aspirin (Aspirin) 81 mg DAILY NGT Last administered on 11/30/16 08:20; Admin Dose 81 MG; Start 11/28/16 at 09:00 Acetaminophen 650 mg 650 mg Q4H PRN NGT PAIN AND OR ELEVATED TEMP Last administered on 11/29/16 08:35; Admin Dose 650 MG; Start 11/27/16 at 17:32 Fluconazole/ Sodium Chloride 50 ml @ 50 mls/hr Q24H IVPB Last administered on 10:00; Admin Dose 50 MLS/HR; Start 11/28/16 at 10:15 Meropenem 100 ml @ 200 mls/hr Q24H IVPB Last administered on 11/29/16 17:17; Admin Dose 200 MLS/HR; Start 11/29/16 at 17:00 Bumetanide/ Dextrose/Water (Bumex/D5W) 120 ml @ 10 mls/hr Q12H IV Last administered on 11/30/16 10:00; Admin Dose 10 MLS/HR; Start 11/30/16 at 09:30; Stop 11/30/16 at 21:29 JANINE CM MD Nov 30, 2016 16:18
[2016-11-30] MEDS: MEROPENEM 500 MG/100 ML (PMX) 100 ML IVPB SCH (17:32)
--- NOTE | 2016-11-30 18:41 | CONS ---
Date/Time of Note Date/Time of Note DATE: 11/30/16 TIME: 18:37 Consult Date/Type/Reason Admit Date/Time Nov 27, 2016 at 05:46 Initial Consult Date 11/30/16 Type of Consultation: neuro Ordering Provider: TALIA LANGE Subjective no acute events Objective Vital Signs Date Time Temp Pulse Resp B/P Pulse Ox O2 Delivery O2 Flow Rate FiO2 11/30/16 17:15 74 24 92/68 95 11/30/16 17:02 30 11/30/16 17:00 Mechanical Ventilator 11/30/16 16:00 100.3 Intake and Output 11/29/16 11/29/16 11/30/16 15:00 23:00 07:00 Intake Total 663.25 ml 366.0 ml 213.5 ml Output Total 900 ml 900 ml 650 ml Balance -236.75 ml -534.0 ml -436.5 ml Results/Medications Result Diagram: 11/30/16 0500 11/30/16 0500 Results 24 hrs Laboratory Tests Test 11/29/16 19:58 11/29/16 21:57 11/30/16 00:07 11/30/16 02:18 Bedside Glucose 93 110 119 117 Test 11/30/16 04:12 11/30/16 05:00 11/30/16 06:10 11/30/16 08:16 Bedside Glucose 120 125 108 White Blood Count 16.3 #H Red Blood Count 3.50 L Hemoglobin 11.4 L Hematocrit 33.9 L Mean Corpuscular Volume 96.9 Mean Corpuscular Hemoglobin 32.6 Mean Corpuscular Hemoglobin Concent 33.6 Red Cell Distribution Width 13.1 Platelet Count 260 Mean Platelet Volume 11.0 H Neutrophils % 83.0 H Lymphocytes % 9.5 L Monocytes % 5.2 Eosinophils % 0.4 Basophils % 0.2 Nucleated Red Blood Cells % 0.0 Neutrophils # 13.5 H Lymphocytes # 1.6 Monocytes # 0.9 Eosinophils # 0.1 Basophils # 0.0 Nucleated Red Blood Cells # 0.0 Sodium Level 134 L Potassium Level 4.1 Chloride Level 101 Carbon Dioxide Level 18 L Anion Gap 19 H Blood Urea Nitrogen 77 H Creatinine 8.83 H Glucose Level 112 Calcium Level 8.0 L Test 11/30/16 10:09 11/30/16 11:45 11/30/16 14:10 11/30/16 16:27 Bedside Glucose 106 120 102 109 Test 11/30/16 17:33 Bedside Glucose 109 Medications Current Medications Dopamine HCl/ Dextrose 250 ml @ 7.275 mls/ hr TITRATE IV Last administered on 11/28/16 17:40; Admin Dose 21.8 MLS/HR; Start 11/27/16 at 05:00 Pantoprazole 40 mg 40 mg DAILY@06 IV Last administered on 11/30/16 05:15; Admin Dose 40 MG; Start 11/28/16 at 06:00 Norepinephrine 16 mg/Dextrose 500 ml @ 1.87 mls/hr TITRATE IV Last administered on 11/29/16 21:49; Admin Dose 7.5 MLS/HR; Start 11/27/16 at 09:00 Midazolam HCl (Versed) 50 ml @ 1 mls/hr TITRATE IV Last administered on 06:23; Admin Dose 5 MLS/HR; Start 11/27/16 at 10:30 Acetaminophen 650 mg 650 mg Q6H PRN PO PAIN AND OR ELEVATED TEMP; Start at 12:00 Sodium Chloride (NS) 1,000 ml @ 20 mls/hr Q24H IV Last administered on 10:06; Admin Dose 100 MLS/HR; Start 11/27/16 at 12:30 Diagnostic Test (Pha) (Accu-Chek) 1 ea Q1H XX Last administered on 11/30/16 18: 34; Admin Dose 1 EA; Start 11/27/16 at 15:30 Dextrose (D50w Syringe) 25 ml Q15M PRN IV Till BS 80 mg/dL or above x2; Start 11/27/16 at 15:30 Dextrose (D50w Syringe) 50 ml Q15M PRN IV Till BS 80 mg/dL or above x2; Start 11/27/16 at 15:30 Heparin Sodium (Porcine) (Heparin (5000 Units/0.5 ml)) 5,000 unit BID SC Last administered on 11/30/16 08:21; Admin Dose 5,000 UNIT; Start 11/27/16 at 21:00 Aspirin (Aspirin) 81 mg DAILY NGT Last administered on 11/30/16 08:20; Admin Dose 81 MG; Start 11/28/16 at 09:00 Acetaminophen 650 mg 650 mg Q4H PRN NGT PAIN AND OR ELEVATED TEMP Last administered on 11/29/16 08:35; Admin Dose 650 MG; Start 11/27/16 at 17:32 Fluconazole/ Sodium Chloride 50 ml @ 50 mls/hr Q24H IVPB Last administered on 10:00; Admin Dose 50 MLS/HR; Start 11/28/16 at 10:15 Meropenem 100 ml @ 200 mls/hr Q24H IVPB Last administered on 11/30/16 17:32; Admin Dose 200 MLS/HR; Start 11/29/16 at 17:00 Bumetanide/ Dextrose/Water (Bumex/D5W) 120 ml @ 10 mls/hr Q12H IV Last administered on 11/30/16 10:00; Admin Dose 10 MLS/HR; Start 11/30/16 at 09:30; Stop 11/30/16 at 21:29 Assessment/Plan Chief Complaint/Hosp Course PHYSICAL EXAMINATION: GENERAL: Not in acute distress, lying in bed. HEENT: Normocephalic, atraumatic head. NECK: No carotid bruits. No thyromegaly. LUNGS: Clear to auscultation bilaterally, intubated orally. ABDOMEN: Soft. EXTREMITIES: No cyanosis, clubbing or edema. NEUROLOGIC: He is lethargic. No response to voice, pain or commands. No response to visual threat. Pupils 3 mm fixed. No EOM. Corneal reflexes are absent. Gag is absent. No withdrawal of flaccid extremities to pain. Deep tendon reflexes 1+ upper extremities, absent lower extremities. No definite response to plantar stimulation. IMPRESSION: Severe encephalopathy, anoxic +/- toxic metabolic. Poor prognosis for functional recovery. EEG yesterday c/w severe encephalopathy. Exam today may be c/w brain , as pt is not overbreathing vent. Consider apnea testing. Problems: MIKEL THOMPSON MD Nov 30, 2016 18:41
[2016-12-01] VITALS (28 sets, daily range): BP systolic 80–112; BP diastolic 65–78; PULSE 0–73; RESP 24
[2016-12-01] MEDS: ACCU-CHEK XX SCH ×16 (01:02→16:30)
[2016-12-01 05:53] LABS: ADD SCAN DIFF NO
[2016-12-01 06:00] LABS: BASOPHIL # 0.1 10^3/ul (0.0-0.1); BASOPHILS % 0.4 % (0.0-2.0); EOSINOPHILS # 0.2 10^3/ul (0.0-0.5); EOSINOPHILS % 1.3 % (0.0-7.0); HEMATOCRIT 31.1 % (42.0-52.0); HEMOGLOBIN 10.8 g/dl (14.0-18.0); LYMPHOCYTES # 1.8 10^3/ul (0.8-2.9); LYMPHOCYTES % 12.2 % (15.0-51.0); MEAN CORPUSCULAR HEMOGLOBIN 33.3 pg (29.0-33.0); MEAN CORPUSCULAR HGB CONC 34.7 g/dl (32.0-37.0); MEAN PLATELET VOLUME 11.1 fl (7.4-10.4); MONOCYTE # 0.7 10^3/ul (0.3-0.9); MONOCYTES % 4.9 % (0.0-11.0); NEUTROPHIL # 11.5 10^3/ul (1.6-7.5); NEUTROPHILS % 79.3 % (39.0-77.0); PLATELET COUNT 270 10^3/UL (140-415); RED BLOOD COUNT 3.24 10^6/ul (4.70-6.10); RED CELL DISTRIBUTION WIDTH 13.2 % (11.5-14.5); WHITE BLOOD COUNT 14.5 10^3/ul (4.8-10.8)
[2016-12-01] MEDS: PANTOPRAZOLE 40 MG INJ IV SCH (06:09)
[2016-12-01 06:19] LABS: POTASSIUM 3.8 mmol/L (3.5-5.1)
[2016-12-01 06:34] LABS: CREATININE 9.83 mg/dl (0.61-1.24)
--- NOTE | 2016-12-01 07:59 | CONS ---
Date/Time of Note Date/Time of Note DATE: 12/01/16 TIME: 07:56 Assessment/Plan Assessment/Plan Chief Complaint/Hosp Course Pt admitted with V-fib cardiac arrest hypotensive and has remained on pressors with knon "liver dz" and hx elevated sugar. Problems: Additional Assessment/Plan 1. Renal fx continues to decline await decision from family whether to continue support and if so will need HD today. Await discussion with Dr. Melo. 2. Will resume Bumex as now not requiring pressors. 3. ASHD, acute [place] Consultation Date/Type/Reason Admit Date/Time Nov 27, 2016 at 05:46 Initial Consult Date 11/27/16 Type of Consultation: neuro Referring Provider: TALIA LANGE 24 HR Interval Summary Subjective hx not possible: other (intubated and sedated) Exam/Review of Systems Vital Signs Vitals Vital Signs Date Time Temp Pulse Resp B/P Pulse Ox O2 Delivery O2 Flow Rate FiO2 12/01/16 06:00 61 24 100/73 94 Mechanical Ventilator 12/01/16 05:15 30 12/01/16 04:00 99.1 Intake and Output 11/30/16 11/30/16 12/01/16 15:00 23:00 07:00 Intake Total 277.25 ml 186.0 ml 12 ml Output Total 850 ml 650 ml 500 ml Balance -572.75 ml -464.0 ml -488 ml Exam Neck: No jvd Respiratory: diminished breath sounds Cardiovascular: regular rate and rhythm Gastrointestinal: distended, soft Extremities: No edema Results Result Diagram: 12/01/16 0430 12/01/16 0430 Results 24 hrs Laboratory Tests Test 11/30/16 08:16 11/30/16 10:09 11/30/16 11:45 11/30/16 14:10 Bedside Glucose 108 106 120 102 Test 11/30/16 16:27 11/30/16 17:33 11/30/16 19:36 11/30/16 21:47 Bedside Glucose 109 109 133 113 Test 11/30/16 22:57 12/01/16 01:01 12/01/16 03:17 12/01/16 04:30 Bedside Glucose 111 102 120 White Blood Count 14.5 H Red Blood Count 3.24 L Hemoglobin 10.8 L Hematocrit 31.1 L Mean Corpuscular Volume 96.0 Mean Corpuscular Hemoglobin 33.3 H Mean Corpuscular Hemoglobin Concent 34.7 Red Cell Distribution Width 13.2 Platelet Count 270 Mean Platelet Volume 11.1 H Neutrophils % 79.3 H Lymphocytes % 12.2 L Monocytes % 4.9 Eosinophils % 1.3 Basophils % 0.4 Nucleated Red Blood Cells % 0.0 Neutrophils # 11.5 H Lymphocytes # 1.8 Monocytes # 0.7 Eosinophils # 0.2 Basophils # 0.1 Nucleated Red Blood Cells # 0.0 Sodium Level 137 Potassium Level 3.8 Chloride Level 103 Carbon Dioxide Level 17 L Anion Gap 21 H Blood Urea Nitrogen 114 #H Creatinine 9.83 H Glucose Level 106 Calcium Level 8.0 L Test 12/01/16 05:46 Bedside Glucose 89 Medications Medications Current Medications Dopamine HCl/ Dextrose 250 ml @ 7.275 mls/ hr TITRATE IV Last administered on 11/28/16 17:40; Admin Dose 21.8 MLS/HR; Start 11/27/16 at 05:00 Pantoprazole 40 mg 40 mg DAILY@06 IV Last administered on 12/01/16 06:09; Admin Dose 40 MG; Start 11/28/16 at 06:00 Norepinephrine 16 mg/Dextrose 500 ml @ 1.87 mls/hr TITRATE IV Last administered on 11/29/16 21:49; Admin Dose 7.5 MLS/HR; Start 11/27/16 at 09:00 Midazolam HCl (Versed) 50 ml @ 1 mls/hr TITRATE IV Last administered on 06:23; Admin Dose 5 MLS/HR; Start 11/27/16 at 10:30 Acetaminophen 650 mg 650 mg Q6H PRN PO PAIN AND OR ELEVATED TEMP; Start at 12:00 Sodium Chloride (NS) 1,000 ml @ 20 mls/hr Q24H IV Last administered on 10:06; Admin Dose 100 MLS/HR; Start 11/27/16 at 12:30 Diagnostic Test (Pha) (Accu-Chek) 1 ea Q1H XX Last administered on 12/01/16 06: 48; Admin Dose 1 EA; Start 11/27/16 at 15:30 Dextrose (D50w Syringe) 25 ml Q15M PRN IV Till BS 80 mg/dL or above x2; Start 11/27/16 at 15:30 Dextrose (D50w Syringe) 50 ml Q15M PRN IV Till BS 80 mg/dL or above x2; Start 11/27/16 at 15:30 Heparin Sodium (Porcine) (Heparin (5000 Units/0.5 ml)) 5,000 unit BID SC Last administered on 11/30/16 21:00; Admin Dose 5,000 UNIT; Start 11/27/16 at 21:00 Aspirin (Aspirin) 81 mg DAILY NGT Last administered on 11/30/16 08:20; Admin Dose 81 MG; Start 11/28/16 at 09:00 Acetaminophen 650 mg 650 mg Q4H PRN NGT PAIN AND OR ELEVATED TEMP Last administered on 11/29/16 08:35; Admin Dose 650 MG; Start 11/27/16 at 17:32 Fluconazole/ Sodium Chloride 50 ml @ 50 mls/hr Q24H IVPB Last administered on 10:00; Admin Dose 50 MLS/HR; Start 11/28/16 at 10:15 Meropenem (Merrem 500 Mg/ 100 ml (Pmx)) 100 ml @ 200 mls/hr Q24H IVPB Last administered on 11/30/16 17:32; Admin Dose 200 MLS/HR; Start 11/29/16 at 17:00 WNADY THOMAS MD Dec 01, 2016 07:59
--- NOTE | 2016-12-01 08:15 | PN ---
Date/Time of Note Date/Time of Note DATE: 12/01/16 TIME: 08:11 Assessment/Plan VTE Prophylaxis VTE Prophylaxis Intervention: heparin Lines/Catheters IV Catheter Type (from Nrs): Central Line Central line still needed: Yes Urinary Cath still in place: Yes Reason Cath still needed: other (indicate) Assessment/Plan Chief Complaint/Hosp Course 1. acute [place] 2. VT cardiac arrest 3. shock: cardiogenic +/- septic 4. Afib 5. CHF: 6. Acute hypoxemic resp failure 7. encephalopathy: anoxic brain injury. 8. ACUTE RENAL FAILURE: due to ATN ( doubt due to contrast since only 15 cc was used and pt had already been anuric and with acute elevation of creatinine prio to the angiogram). 9. DM 10. elevated LFT 11. recurrent FEVER & SEPSIS 12. SEVERE CARDIOMYOPATHY 13. moderate CAD: cont ASA ASA cont vent support echo reviewed pt with severe LV dysfx. replace lytes prn . diuresis as per renal. Antibiotic as per medicine/ pulmonary team vent support will be continued continue the ICU care. f/u with neuro rec. prognosis is poor. more than 36 minutes critical care time was spent in management and treatment of this critically ill patient, excluding any procedures. Problems: Subjective 24 Hr Interval Summary Free Text/Dictation CARDIOLOGY/ CRITICAL CARE FOLLOW UP NOTE d/w staff and physicians. pt remains intubated on vent in ICU but has been able to wean off of levophed. BP is more stable nonverbral nonresponsive. pt with good urine output. pt remains in NSR. pt with no significant neurological improvement meds reviewed. General: obese man intubated on vent. nonresponsive HEENT: NC/AT. pupils are constricted. round. s/p intubation on vent NECK: . no stridor. CV: irregularly irregular. systolic murmur; no gallop or rubs. PULM: diffuse rhonchi. GI: obese soft , NT, ND, no rebound or guarding Extremity: + B/L LE edema. no clubbing. neuro: unresponsive. no corneal reflex Psych: calm rectal: deferred : + scrotal edema Exam/Review of Systems Vital Signs Vitals Vital Signs Date Time Temp Pulse Resp B/P Pulse Ox O2 Delivery O2 Flow Rate FiO2 12/01/16 08:00 30 12/01/16 06:00 61 24 100/73 94 Mechanical Ventilator 7/7/17 04:00 99.1 Intake and Output 11/30/16 11/30/16 12/01/16 15:00 23:00 07:00 Intake Total 277.25 ml 186.0 ml 12 ml Output Total 850 ml 650 ml 500 ml Balance -572.75 ml -464.0 ml -488 ml Results Result Diagram: 12/01/16 0430 12/01/16 0430 Results 24 hrs Laboratory Tests Test 11/30/16 08:16 11/30/16 10:09 11/30/16 11:45 11/30/16 14:10 Bedside Glucose 108 106 120 102 Test 11/30/16 16:27 11/30/16 17:33 11/30/16 19:36 11/30/16 21:47 Bedside Glucose 109 109 133 113 Test 11/30/16 22:57 12/01/16 01:01 12/01/16 03:17 12/01/16 04:30 Bedside Glucose 111 102 120 White Blood Count 14.5 H Red Blood Count 3.24 L Hemoglobin 10.8 L Hematocrit 31.1 L Mean Corpuscular Volume 96.0 Mean Corpuscular Hemoglobin 33.3 H Mean Corpuscular Hemoglobin Concent 34.7 Red Cell Distribution Width 13.2 Platelet Count 270 Mean Platelet Volume 11.1 H Neutrophils % 79.3 H Lymphocytes % 12.2 L Monocytes % 4.9 Eosinophils % 1.3 Basophils % 0.4 Nucleated Red Blood Cells % 0.0 Neutrophils # 11.5 H Lymphocytes # 1.8 Monocytes # 0.7 Eosinophils # 0.2 Basophils # 0.1 Nucleated Red Blood Cells # 0.0 Sodium Level 137 Potassium Level 3.8 Chloride Level 103 Carbon Dioxide Level 17 L Anion Gap 21 H Blood Urea Nitrogen 114 #H Creatinine 9.83 H Glucose Level 106 Calcium Level 8.0 L Test 12/01/16 05:46 Bedside Glucose 89 Medications Medications Current Medications Dopamine HCl/ Dextrose 250 ml @ 7.275 mls/ hr TITRATE IV Last administered on 11/28/16 17:40; Admin Dose 21.8 MLS/HR; Start 11/27/16 at 05:00 Pantoprazole 40 mg 40 mg DAILY@06 IV Last administered on 12/01/16 06:09; Admin Dose 40 MG; Start 11/28/16 at 06:00 Norepinephrine 16 mg/Dextrose 500 ml @ 1.87 mls/hr TITRATE IV Last administered on 11/29/16 21:49; Admin Dose 7.5 MLS/HR; Start 11/27/16 at 09:00 Midazolam HCl (Versed) 50 ml @ 1 mls/hr TITRATE IV Last administered on 06:23; Admin Dose 5 MLS/HR; Start 11/27/16 at 10:30 Acetaminophen 650 mg 650 mg Q6H PRN PO PAIN AND OR ELEVATED TEMP; Start at 12:00 Sodium Chloride (NS) 1,000 ml @ 20 mls/hr Q24H IV Last administered on 10:06; Admin Dose 100 MLS/HR; Start 11/27/16 at 12:30 Diagnostic Test (Pha) (Accu-Chek) 1 ea Q1H XX Last administered on 12/01/16 06: 48; Admin Dose 1 EA; Start 11/27/16 at 15:30 Dextrose (D50w Syringe) 25 ml Q15M PRN IV Till BS 80 mg/dL or above x2; Start 11/27/16 at 15:30 Dextrose (D50w Syringe) 50 ml Q15M PRN IV Till BS 80 mg/dL or above x2; Start 11/27/16 at 15:30 Heparin Sodium (Porcine) (Heparin (5000 Units/0.5 ml)) 5,000 unit BID SC Last administered on 11/30/16 21:00; Admin Dose 5,000 UNIT; Start 11/27/16 at 21:00 Aspirin (Aspirin) 81 mg DAILY NGT Last administered on 11/30/16 08:20; Admin Dose 81 MG; Start 11/28/16 at 09:00 Acetaminophen 650 mg 650 mg Q4H PRN NGT PAIN AND OR ELEVATED TEMP Last administered on 11/29/16 08:35; Admin Dose 650 MG; Start 11/27/16 at 17:32 Fluconazole/ Sodium Chloride 50 ml @ 50 mls/hr Q24H IVPB Last administered on 10:00; Admin Dose 50 MLS/HR; Start 11/28/16 at 10:15 Meropenem 100 ml @ 200 mls/hr Q24H IVPB Last administered on 7/6/17at 17:32; Admin Dose 200 MLS/HR; Start 11/29/16 at 17:00 Bumetanide/ Dextrose/Water (Bumex/D5W) 120 ml @ 10 mls/hr Q12H ONCE IV ; Start 12/01/16 at 10:00; Stop 12/01/16 at 21:59 NHI MAO MD Dec 01, 2016 08:14
[2016-12-01] MEDS: SOD CHLORIDE 0.9% 1,000 ML IV SCH (08:30)
[2016-12-01] MEDS: ASPIRIN 81 MG TAB NGT SCH (08:49)
[2016-12-01] MEDS: HEPARIN 5,000 UNIT/0.5 ML VIAL SC SCH (08:53)
[2016-12-01 09:17] LABS: AADO2 Arterial 108.7 mmHg (7.0-24.0); Allen Test ACCEPTAB; Arterial Base Excess -6.4 mmol/L (-3.0-3); Arterial COHb 0.3 % (0.0-3.0); Arterial Fraction of Oxyhgb 94.3 % (93.0-99.0); Arterial HCO3 15.7 mmol/L (22.0-26.0); Arterial MetHb 0.3 % (0.0-1.5); MODE VENT - AC
[2016-12-01] MEDS: FLUCONAZOLE 100 MG/NS (PMX) 50 ML IVPB SCH (09:26)
--- NOTE | 2016-12-01 09:47 | PN ---
Date/Time of Note Date/Time of Note DATE: 12/01/16 TIME: 09:36 Assessment/Plan VTE Prophylaxis VTE Prophylaxis Intervention: heparin Lines/Catheters IV [facility] Central Line Central line still needed: Yes Urinary Cath still in place: Yes Reason Cath still needed: urinary retention Assessment/Plan Chief Complaint/Hosp Course Assessment and plan: 51-year-old male status post cardiac arrest, non-ST elevation AR, renal insufficiency, intubated, on pressor support. 1. 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 Off heparin IV drip now. - follow cardiology recommendations. - continue insulin drip as well. - per CV team, med mngt - awaiting palliative team consult - Neuro consult as well appreciated - per their rec's, pt has severe encephalopathy, anoxic +/- toxic metabolic. Poor prognosis for functional recovery. EEG yesterday c/w severe encephalopathy. Exam today may be c/w brain , as pt is not overbreathing vent. Consider apnea testing. 2. Renal failure - sec to ATN from hypoperfusion/sepsis (and possibly contrast from [facility]). Patient's creatinine has gone up from 1.36-> 2.44 -> 4.58 -> 7 -> 8 - > 9. UO is low, followed by renal team. -f/u renal consult rec's - for Bumex again today - monitor ins and outs - may need HD soon per renal given worsening renal fct - depending on family meeting (ie: decisions from that), will proceed with this vs other measures of care 3. Respiratory failure: Again patient was intubated in the ER. - Continue duo nebs as needed, follow pulmonary recommendations for vent management 4. Prediabetes: A1c = 7.3 - continue insulin drip as mentioned in #1 5. GI prophylaxis: PPI 6. DVT prophylaxis: heparin 7. Shock -likely combination of septic and cardiogenic shock - sepsis possible source sec to UTI? + Fevers still (sec to infx vs central??). ECHO = EF = 30% .Off pressors now. - continue broad-spectrum antibiotics - f/u ID consult as well - continue to trend the white blood cell count, follow final culture results - Tylenol as needed pain and fevers. Another family meeting later today - f/u with palliative on this. Critical care time spent today = 45 min. Problems: Subjective 24 Hr Interval Summary Free Text/Dictation Pt off pressor now. Still intubated, on insulin drip. Palliative had family meeting yesterday, another scheduled for today. Exam/Review of Systems Vital Signs Vitals Vital Signs Date Time Temp Pulse Resp B/P Pulse Ox O2 Delivery O2 Flow Rate FiO2 12/01/16 09:20 58 24 97 30 12/01/16 06:00 100/73 Mechanical Ventilator 12/01/16 04:00 99.1 Intake and Output 11/30/16 11/30/16 12/01/16 15:00 23:00 07:00 Intake Total 277.25 ml 186.0 ml 12 ml Output Total 850 ml 650 ml 500 ml Balance -572.75 ml -464.0 ml -488 ml Exam General: Patient is intubated, lying in bed, not responsive off sedation HEENT: unable to fully assess at this time Neck: Supple Respiratory: Distant breath sounds bilaterally Cardiovascular: S1-S2 heard, no rubs or gallops Abdomen: Soft, nontender, nondistended, no rebound or guarding, normal bowel sounds Muscular skeletal: No lower extremity edema bilaterally Neurologic: Unable to fully assess because patient is intubated Results Result Diagram: 12/01/16 0430 12/01/16 0430 Results 24 hrs Laboratory Tests Test 11/30/16 10:09 11/30/16 11:45 11/30/16 14:10 11/30/16 16:27 Bedside Glucose 106 120 102 109 Test 11/30/16 17:33 11/30/16 19:36 11/30/16 21:47 11/30/16 22:57 Bedside Glucose 109 133 113 111 Test 12/01/16 01:01 12/01/16 03:17 12/01/16 04:30 12/01/16 05:46 Bedside Glucose 102 120 89 White Blood Count 14.5 H Red Blood Count 3.24 L Hemoglobin 10.8 L Hematocrit 31.1 L Mean Corpuscular Volume 96.0 Mean Corpuscular Hemoglobin 33.3 H Mean Corpuscular Hemoglobin Concent 34.7 Red Cell Distribution Width 13.2 Platelet Count 270 Mean Platelet Volume 11.1 H Neutrophils % 79.3 H Lymphocytes % 12.2 L Monocytes % 4.9 Eosinophils % 1.3 Basophils % 0.4 Nucleated Red Blood Cells % 0.0 Neutrophils # 11.5 H Lymphocytes # 1.8 Monocytes # 0.7 Eosinophils # 0.2 Basophils # 0.1 Nucleated Red Blood Cells # 0.0 Sodium Level 137 Potassium Level 3.8 Chloride Level 103 Carbon Dioxide Level 17 L Anion Gap 21 H Blood Urea Nitrogen 114 #H Creatinine 9.83 H Glucose Level 106 Calcium Level 8.0 L Test 12/01/16 08:32 12/01/16 08:59 Bedside Glucose 94 Blood Gas Specimen Source Blood arterial Arterial Blood Date Drawn 12/01/2016 9:08:51 AM Arterial Blood pH (Temp corrected) 7.456 H Arterial Blood pCO2 (Temp correct) 22.8 L Arterial Blood pO2 (Temp corrected) 78.4 L Arterial Blood HCO3 15.7 L Arterial Blood Base Excess -6.4 L Arterial Blood Oxygen Saturation 94.9 L Thomas Test ACCEPTAB Arterial Blood Gas Puncture Site Right Radial Arterial Blood Carboxyhemoglobin 0.3 Arterial Blood Methemoglobin 0.3 Blood Gas A-a O2 Differential 108.7 H Oxyhemoglobin Percent 94.3 Total Hemoglobin 12.0 Blood Gas Temperature 37.0 Blood Gas Respiration Rate 24.0 Blood Gas Actual Respiration Rate 24 Blood Gas Modality VENT - AC FiO2 30.0 Blood Gas Tidal Volume 600.0 Blood Gas High PEEP Setting 5.0 Blood Gas Notified Whom TM Blood Gas Notified Time 12/01/2016 9:17:43 AM Medications Medications Current Medications Dopamine HCl/ Dextrose 250 ml @ 7.275 mls/ hr TITRATE IV Last administered on 11/28/16 17:40; Admin Dose 21.8 MLS/HR; Start 11/27/16 at 05:00 Pantoprazole 40 mg 40 mg DAILY@06 IV Last administered on 12/01/16 06:09; Admin Dose 40 MG; Start 11/28/16 at 06:00 Norepinephrine 16 mg/Dextrose 500 ml @ 1.87 mls/hr TITRATE IV Last administered on 11/29/16 21:49; Admin Dose 7.5 MLS/HR; Start 11/27/16 at 09:00 Midazolam HCl (Versed) 50 ml @ 1 mls/hr TITRATE IV Last administered on 06:23; Admin Dose 5 MLS/HR; Start 11/27/16 at 10:30 Acetaminophen 650 mg 650 mg Q6H PRN PO PAIN AND OR ELEVATED TEMP; Start at 12:00 Sodium Chloride (NS) 1,000 ml @ 20 mls/hr Q24H IV Last administered on 10:06; Admin Dose 100 MLS/HR; Start 11/27/16 at 12:30 Diagnostic Test (Pha) (Accu-Chek) 1 ea Q1H XX Last administered on 12/01/16 08: 57; Admin Dose 1 EA; Start 11/27/16 at 15:30 Dextrose (D50w Syringe) 25 ml Q15M PRN IV Till BS 80 mg/dL or above x2; Start 11/27/16 at 15:30 Dextrose (D50w Syringe) 50 ml Q15M PRN IV Till BS 80 mg/dL or above x2; Start 11/27/16 at 15:30 Heparin Sodium (Porcine) (Heparin (5000 Units/0.5 ml)) 5,000 unit BID SC Last administered on 12/01/16 08:53; Admin Dose 5,000 UNIT; Start 11/27/16 at 21:00 Aspirin (Aspirin) 81 mg DAILY NGT Last administered on 12/01/16 08:49; Admin Dose 81 MG; Start 11/28/16 at 09:00 Acetaminophen 650 mg 650 mg Q4H PRN NGT PAIN AND OR ELEVATED TEMP Last administered on 11/29/16 08:35; Admin Dose 650 MG; Start 11/27/16 at 17:32 Fluconazole/ Sodium Chloride 50 ml @ 50 mls/hr Q24H IVPB Last administered on 09:26; Admin Dose 50 MLS/HR; Start 11/28/16 at 10:15 Meropenem 100 ml @ 200 mls/hr Q24H IVPB Last administered on 11/30/16 17:32; Admin Dose 200 MLS/HR; Start 11/29/16 at 17:00 Bumetanide/ Dextrose/Water (Bumex/D5W) 120 ml @ 10 mls/hr Q12H ONCE IV Last administered on 12/01/16 09:23; Admin Dose 10 MLS/HR; Start 12/01/16 at 10:00; Stop 12/01/16 at 21:59 Procedures Procedures EEG (11/30/16): IMPRESSION: Abnormal study secondary to severe slowing and diminishing of amplitude of background, reflecting severity of anoxic encephalopathy. TALIA LANGE. Dec 01, 2016 09:46
[2016-12-01] MEDS ORDERED: BUMETANIDE 12 MG in DEXTROSE 5% 72 ML IV ONE (10:00)
--- NOTE | 2016-12-01 10:02 | DS ---
Date/Time of Note Date/Time of Note DATE: 12/01/16 TIME: 09:56 Discharge Summary Admission/Discharge Info Admit Date/Time Nov 27, 2016 at 05:46 Discharge Date/Time Discharge Diagnosis 1. 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 Off heparin IV drip now. 2. Renal failure - sec to ATN from hypoperfusion/sepsis (and possibly contrast from LHC). Patient's creatinine has gone up from 1.36-> 2.44 -> 4.58 -> 7 -> 8 - > 9. UO is low, followed by renal team. 3. Respiratory failure: Again patient was intubated in the ER. 4. Prediabetes: A1c = 7.3 - continue insulin drip 5. GI prophylaxis: PPI 6. DVT prophylaxis: heparin 7. Cardiogenic and septic Shock - now off pressors Patient Condition: Stable Hx of Present Illness 51-year-old male past medical history of prediabetes, high cholesterol, who was having complaints weakness and decreased appetite and confusion and chills for the last 3 days, per family. Most of the information is obtained from the family and ER documentation as the patient is presently intubated and on pressors. Her family early this morning patient got up complaining of left arm numbness as he was getting out of bed he fell forward and was nonresponsive. Family started CPR and EMS was called and when patient arrived he was found with elevated troponin levels of 37, and on-call fork lift truck operator was called but determined that patient did not need to go to the [facility] at that time. There was no signs of any ST elevations on the EKG as well. Per family no prior history of any stroke or heart attack in the past. No complaints of any upper or lower GI bleeding no fevers no abdominal pain no chest pain or shortness of breath for the arrest occurred. Pt now intubated, renal failure, on insulin drip , followed by multiple consultants. Hospital Course Assessment and plan: 51-year-old male status post cardiac arrest, non-ST elevation SC, renal insufficiency, intubated. 1. 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 Off heparin IV drip now. - follow cardiology recommendations. - continue insulin drip as well. - per CV team, med mngt - awaiting palliative team consult - Neuro consult as well appreciated - per their rec's, pt has severe encephalopathy, anoxic +/- toxic metabolic. Poor prognosis for functional recovery. EEG yesterday c/w severe encephalopathy. Exam today may be c/w brain , as pt is not overbreathing vent. Consider apnea testing. 2. Renal failure - sec to ATN from hypoperfusion/sepsis (and possibly contrast from C). Patient's creatinine has gone up from 1.36-> 2.44 -> 4.58 -> 7 -> 8 - > 9. UO is low, followed by renal team. -f/u renal consult rec's - for Bumex again today - monitor ins and outs - may need HD soon per renal given worsening renal fct - depending on family meeting (ie: decisions from that), will proceed with this vs other measures of care 3. Respiratory failure: Again patient was intubated in the ER. - Continue duo nebs as needed, follow pulmonary recommendations for vent management 4. Prediabetes: A1c = 7.3 - continue insulin drip as mentioned in #1 5. GI prophylaxis: PPI 6. DVT prophylaxis: heparin 7. Shock -likely combination of septic and cardiogenic shock - sepsis possible source sec to UTI? + Fevers still (sec to infx vs central??). ECHO = EF = 30% .Off pressors now. - continue broad-spectrum antibiotics - f/u ID consult as well - continue to trend the white blood cell count, follow final culture results - Tylenol as needed pain and fevers. Another family meeting later today - f/u with palliative on this. Critical care time spent today = 45 min. Home Meds Reported Medications Cefuroxime Axetil* (Cefuroxime Axetil*) 500 Mg Tablet, 500 MG PO BID, TAB started 11-24-16 for 7 days 11/27/16 Atorvastatin* (Atorvastatin*) 40 Mg Tablet, 40 MG PO QHS, #30 TAB 11/27/16 Primary Care Provider Not On Staff Doctor Time spent on discharge: > 30 minutes Pending Labs Laboratory Tests Test 11/30/16 10:09 11/30/16 11:45 11/30/16 14:10 11/30/16 16:27 Bedside Glucose 106mg/dL (70-220) 120mg/dL (70-220) 102mg/dL (70-220) 109mg/dL (70-220) Test 11/30/16 17:33 11/30/16 19:36 11/30/16 21:47 11/30/16 22:57 Bedside Glucose 109mg/dL (70-220) 133mg/dL (70-220) 113mg/dL (70-220) 111mg/dL (70-220) Test 12/01/16 01:01 12/01/16 03:17 12/01/16 04:30 12/01/16 05:46 Bedside Glucose 102mg/dL (70-220) 120mg/dL (70-220) 89mg/dL (70-220) White Blood Count 14.510^3/ul (4.8-10.8) Red Blood Count 3.2410^6/ul (4.70-6.10) Hemoglobin 10.8g/dl (14.0-18.0) Hematocrit 31.1% (42.0-52.0) Mean Corpuscular Volume 96.0fl (82.0-101.0) Mean Corpuscular Hemoglobin 33.3pg (29.0-33.0) Mean Corpuscular Hemoglobin Concent 34.7g/dl (32.0-37.0) Red Cell Distribution Width 13.2% (11.5-14.5) Platelet Count 93951^3/UL (140-415) Mean Platelet Volume 11.1fl (7.4-10.4) Neutrophils % 79.3% (39.0-77.0) Lymphocytes % 12.2% (15.0-51.0) Monocytes % 4.9% (0.0-11.0) Eosinophils % 1.3% (0.0-7.0) Basophils % 0.4% (0.0-2.0) Nucleated Red Blood Cells % 0.0/100WBC (0.0-0.0) Neutrophils # 11.510^3/ul (1.6-7.5) Lymphocytes # 1.810^3/ul (0.8-2.9) Monocytes # 0.710^3/ul (0.3-0.9) Eosinophils # 0.210^3/ul (0.0-0.5) Basophils # 0.110^3/ul (0.0-0.1) Nucleated Red Blood Cells # 0.010^3/ul (0.0-0.0) Sodium Level 137mmol/L (135-144) Potassium Level 3.8mmol/L (3.5-5.1) Chloride Level 103mmol/L (97-110) Carbon Dioxide Level 17mmol/L (21-31) Anion Gap 21 (8-16) Blood Urea Nitrogen 114mg/dl (7-20) Creatinine 9.83mg/dl (0.61-1.24) Glucose Level 106mg/dl (70-220) Calcium Level 8.0mg/dl (8.4-10.2) Test 12/01/16 08:32 12/01/16 08:59 Bedside Glucose 94mg/dL (70-220) Blood Gas Specimen Source Blood arterial Arterial Blood Date Drawn 12/01/2016 9:08:51 AM Arterial Blood pH (Temp corrected) 7.456 (7.350-7.450) Arterial Blood pCO2 (Temp correct) 22.8mmhg (35-45) Arterial Blood pO2 (Temp corrected) 78.4mmHG (80-100.0) Arterial Blood HCO3 15.7mmol/L (22.0-26.0) Arterial Blood Base Excess -6.4mmol/L (-3.0-3) Arterial Blood Oxygen Saturation 94.9mmHG (95.0-98.0) Thomas Test ACCEPTAB Arterial Blood Gas Puncture Site Right Radial Arterial Blood Carboxyhemoglobin 0.3% (0.0-3.0) Arterial Blood Methemoglobin 0.3% (0.0-1.5) Blood Gas A-a O2 Differential 108.7mmHg (7.0-24.0) Oxyhemoglobin Percent 94.3% (93.0-99.0) Total Hemoglobin 12.0g/dl (12.0-18.0) Blood Gas Temperature 37.0C Blood Gas Respiration Rate 24.0 Blood Gas Actual Respiration Rate 24 Blood Gas Modality VENT - AC FiO2 30.0% Blood Gas Tidal Volume 600.0mL Blood Gas High PEEP Setting 5.0cmH2O Blood Gas Notified Whom TM Blood Gas Notified Time 12/01/2016 9:17:43 AM TALIA LANGE Dec 01, 2016 10:02
--- NOTE | 2016-12-01 12:10 | CONS ---
Date/Time of Note Date/Time of Note DATE: 12/01/16 TIME: 12:07 Consult Date/Type/Reason Admit Date/Time Nov 27, 2016 at 05:46 Initial Consult Date 11/27/16 Type of Consultation: Pulmonary ICU Ordering Provider: TALIA LANGE Subjective Patient remains unresponsive on mechanical ventilation pupils fixed and dilated. Absent gag reflex Objective Vital Signs Date Time Temp Pulse Resp B/P Pulse Ox O2 Delivery O2 Flow Rate FiO2 12/01/16 11:45 100 12/01/16 09:20 58 24 97 12/01/16 06:00 100/73 Mechanical Ventilator 12/01/16 04:00 99.1 Intake and Output 11/30/16 11/30/16 12/01/16 15:00 23:00 07:00 Intake Total 277.25 ml 186.0 ml 12 ml Output Total 850 ml 650 ml 500 ml Balance -572.75 ml -464.0 ml -488 ml Exam PHYSICAL EXAMINATION GENERAL: Morbidly obese gentleman intubated on mechanical ventilation VITAL SIGNS: see below. HEENT: Pupils equal, round, unreactive. CARDIAC: S1, S2, 1/6 systolic ejection murmur CHEST: Diminished air entry bilaterally. ABDOMEN: Mildly distended. Bowel sounds present no guarding or rebound EXTREMITIES: No cyanosis, clubbing edema +1 NEUROLOGIC: Generalized weakness unresponsive. Results/Medications Result Diagram: 12/01/16 0430 12/01/16 0430 Results 24 hrs Laboratory Tests Test 11/30/16 14:10 11/30/16 16:27 11/30/16 17:33 11/30/16 19:36 Bedside Glucose 102 109 109 133 Test 11/30/16 21:47 11/30/16 22:57 12/01/16 01:01 12/01/16 03:17 Bedside Glucose 113 111 102 120 Test 12/01/16 04:30 12/01/16 05:46 12/01/16 08:32 12/01/16 08:59 White Blood Count 14.5 H Red Blood Count 3.24 L Hemoglobin 10.8 L Hematocrit 31.1 L Mean Corpuscular Volume 96.0 Mean Corpuscular Hemoglobin 33.3 H Mean Corpuscular Hemoglobin Concent 34.7 Red Cell Distribution Width 13.2 Platelet Count 270 Mean Platelet Volume 11.1 H Neutrophils % 79.3 H Lymphocytes % 12.2 L Monocytes % 4.9 Eosinophils % 1.3 Basophils % 0.4 Nucleated Red Blood Cells % 0.0 Neutrophils # 11.5 H Lymphocytes # 1.8 Monocytes # 0.7 Eosinophils # 0.2 Basophils # 0.1 Nucleated Red Blood Cells # 0.0 Sodium Level 137 Potassium Level 3.8 Chloride Level 103 Carbon Dioxide Level 17 L Anion Gap 21 H Blood Urea Nitrogen 114 #H Creatinine 9.83 H Glucose Level 106 Calcium Level 8.0 L Bedside Glucose 89 94 Blood Gas Specimen Source Blood arterial Arterial Blood Date Drawn 12/01/2016 9:08:51 AM Arterial Blood pH (Temp corrected) 7.456 H Arterial Blood pCO2 (Temp correct) 22.8 L Arterial Blood pO2 (Temp corrected) 78.4 L Arterial Blood HCO3 15.7 L Arterial Blood Base Excess -6.4 L Arterial Blood Oxygen Saturation 94.9 L Thomas Test ACCEPTAB Arterial Blood Gas Puncture Site Right Radial Arterial Blood Carboxyhemoglobin 0.3 Arterial Blood Methemoglobin 0.3 Blood Gas A-a O2 Differential 108.7 H Oxyhemoglobin Percent 94.3 Total Hemoglobin 12.0 Blood Gas Temperature 37.0 Blood Gas Respiration Rate 24.0 Blood Gas Actual Respiration Rate 24 Blood Gas Modality VENT - AC FiO2 30.0 Blood Gas Tidal Volume 600.0 Blood Gas High PEEP Setting 5.0 Blood Gas Notified Whom TM Blood Gas Notified Time 12/01/2016 9:17:43 AM Test 12/01/16 10:28 Bedside Glucose 99 Medications Current Medications Dopamine HCl/ Dextrose 250 ml @ 7.275 mls/ hr TITRATE IV Last administered on 11/28/16 17:40; Admin Dose 21.8 MLS/HR; Start 11/27/16 at 05:00 Pantoprazole 40 mg 40 mg DAILY@06 IV Last administered on 12/01/16 06:09; Admin Dose 40 MG; Start 11/28/16 at 06:00 Norepinephrine 16 mg/Dextrose 500 ml @ 1.87 mls/hr TITRATE IV Last administered on 11/29/16 21:49; Admin Dose 7.5 MLS/HR; Start 11/27/16 at 09:00 Midazolam HCl (Versed) 50 ml @ 1 mls/hr TITRATE IV Last administered on 06:23; Admin Dose 5 MLS/HR; Start 11/27/16 at 10:30 Acetaminophen 650 mg 650 mg Q6H PRN PO PAIN AND OR ELEVATED TEMP; Start at 12:00 Sodium Chloride (NS) 1,000 ml @ 20 mls/hr Q24H IV Last administered on 10:06; Admin Dose 100 MLS/HR; Start 11/27/16 at 12:30 Diagnostic Test (Pha) (Accu-Chek) 1 ea Q1H XX Last administered on 12/01/16 11: 18; Admin Dose 1 EA; Start 11/27/16 at 15:30 Dextrose (D50w Syringe) 25 ml Q15M PRN IV Till BS 80 mg/dL or above x2; Start 11/27/16 at 15:30 Dextrose (D50w Syringe) 50 ml Q15M PRN IV Till BS 80 mg/dL or above x2; Start 11/27/16 at 15:30 Heparin Sodium (Porcine) (Heparin (5000 Units/0.5 ml)) 5,000 unit BID SC Last administered on 12/01/16 08:53; Admin Dose 5,000 UNIT; Start 11/27/16 at 21:00 Aspirin (Aspirin) 81 mg DAILY NGT Last administered on 12/01/16 08:49; Admin Dose 81 MG; Start 11/28/16 at 09:00 Acetaminophen 650 mg 650 mg Q4H PRN NGT PAIN AND OR ELEVATED TEMP Last administered on 11/29/16 08:35; Admin Dose 650 MG; Start 11/27/16 at 17:32 Fluconazole/ Sodium Chloride 50 ml @ 50 mls/hr Q24H IVPB Last administered on 09:26; Admin Dose 50 MLS/HR; Start 11/28/16 at 10:15 Meropenem 100 ml @ 200 mls/hr Q24H IVPB Last administered on 11/30/16 17:32; Admin Dose 200 MLS/HR; Start 11/29/16 at 17:00 Bumetanide/ Dextrose/Water (Bumex/D5W) 120 ml @ 10 mls/hr Q12H ONCE IV Last administered on 12/01/16 09:23; Admin Dose 10 MLS/HR; Start 12/01/16 at 10:00; Stop 12/01/16 at 21:59 Assessment/Plan Chief Complaint/Hosp Course Assessment 1. Ventricular fibrillation with cardiac arrest. 2. Possible underlying coronary artery disease. Echocardiogram shows decreased ejection fraction with multiple wall motion abnormalities. 3. Possible aspiration pneumonia. Status post septic shock 4. Hypoxemic respiratory failure secondary to above. 5. Acute renal failure likely ATN injury from hypoperfusion. 6. Improved metabolic acidosis 7. Likely severe anoxic brain injury following cardiac arrest Plan 1. Continue mechanical ventilation 2. Intravenous bicarbonate, renal recommendations may require hemodialysis. 3. Broad-spectrum antibiotics for possible aspiration pneumonia 4. Continue cardiac recommendations, cardiac catheterization findings noted 5. DVT and GI prophylaxis 6. Neurology recommendations Disposition Continue ICU care Palliative care consult. Family wish to remove patient from life support today. Critical care time 40 minutes Problems: STEVE PLAZA MD, [facility] Dec 01, 2016 12:09
--- NOTE | 2016-12-01 12:24 | CONS ---
Date/Time of Note Date/Time of Note DATE: 12/01/16 TIME: 12:22 Assessment/Plan Assessment/Plan Chief Complaint/Hosp Course No acute events overnight, patient remains unresponsive, intubated, on insulin drip, family at bedside Vital signs: T-max 100.1 T-current 99.1 pulse 58 respirations 24 blood pressure 100/73 saturation 94 on 30 FiO2 Laboratory data: WBC 14.5 H&H 10.8 and 31.1 platelets 270 neutrophils 79.3 BN 114 creatinine 9.83 Microbiology: All cultures remain negative Indwelling's: Endotracheal tube NG tube Linda right femoral triple lumen catheter Antimicrobials: Meropenem vancomycin fluconazole Physical examination: Morbidly obese middle-aged man who is intubated, in no distress. Head atraumatic normocephalic, sclera nonicteric. Neck is obese. Chest rise symmetrical, breath sounds diminished basis. Heart S1-S2. Abdomen obese soft bowel tones hypoactive. Extremities with trace edema, with acrocyanosis. Assessment: 1. Anoxic encephalopathy, status post cardiac arrest 2. Persistent fevers with leukocytosis==> improved, on empiric antibiotics 3. Acute respiratory failure 4. Acute renal failure 5. Shock, multifactorial==> off pressors Plan: Clinically unchanged, so far cultures have been negative, WBC tracing down , continue on current antibiotics, follow recommendations of consultants, plan for apnea test today Discussed with staff Problems: Consultation Date/Type/Reason Admit Date/Time Nov 27, 2016 at 05:46 Initial Consult Date 11/27/16 Type of Consultation: ID Referring Provider: TALIA LANGE Exam/Review of Systems Vital Signs Vitals Vital Signs Date Time Temp Pulse Resp B/P Pulse Ox O2 Delivery O2 Flow Rate FiO2 12/01/16 11:45 100 12/01/16 09:20 58 24 97 12/01/16 06:00 100/73 Mechanical Ventilator 12/01/16 04:00 99.1 Intake and Output 11/30/16 11/30/16 12/01/16 15:00 23:00 07:00 Intake Total 277.25 ml 186.0 ml 12 ml Output Total 850 ml 650 ml 500 ml Balance -572.75 ml -464.0 ml -488 ml Results Result Diagram: 12/01/16 0430 12/01/16 0430 Results 24 hrs Laboratory Tests Test 11/30/16 14:10 11/30/16 16:27 11/30/16 17:33 11/30/16 19:36 Bedside Glucose 102 109 109 133 Test 11/30/16 21:47 11/30/16 22:57 12/01/16 01:01 12/01/16 03:17 Bedside Glucose 113 111 102 120 Test 12/01/16 04:30 12/01/16 05:46 12/01/16 08:32 12/01/16 08:59 White Blood Count 14.5 H Red Blood Count 3.24 L Hemoglobin 10.8 L Hematocrit 31.1 L Mean Corpuscular Volume 96.0 Mean Corpuscular Hemoglobin 33.3 H Mean Corpuscular Hemoglobin Concent 34.7 Red Cell Distribution Width 13.2 Platelet Count 270 Mean Platelet Volume 11.1 H Neutrophils % 79.3 H Lymphocytes % 12.2 L Monocytes % 4.9 Eosinophils % 1.3 Basophils % 0.4 Nucleated Red Blood Cells % 0.0 Neutrophils # 11.5 H Lymphocytes # 1.8 Monocytes # 0.7 Eosinophils # 0.2 Basophils # 0.1 Nucleated Red Blood Cells # 0.0 Sodium Level 137 Potassium Level 3.8 Chloride Level 103 Carbon Dioxide Level 17 L Anion Gap 21 H Blood Urea Nitrogen 114 #H Creatinine 9.83 H Glucose Level 106 Calcium Level 8.0 L Bedside Glucose 89 94 Blood Gas Specimen Source Blood arterial Arterial Blood Date Drawn 12/01/2016 9:08:51 AM Arterial Blood pH (Temp corrected) 7.456 H Arterial Blood pCO2 (Temp correct) 22.8 L Arterial Blood pO2 (Temp corrected) 78.4 L Arterial Blood HCO3 15.7 L Arterial Blood Base Excess -6.4 L Arterial Blood Oxygen Saturation 94.9 L Thomas Test ACCEPTAB Arterial Blood Gas Puncture Site Right Radial Arterial Blood Carboxyhemoglobin 0.3 Arterial Blood Methemoglobin 0.3 Blood Gas A-a O2 Differential 108.7 H Oxyhemoglobin Percent 94.3 Total Hemoglobin 12.0 Blood Gas Temperature 37.0 Blood Gas Respiration Rate 24.0 Blood Gas Actual Respiration Rate 24 Blood Gas Modality VENT - AC FiO2 30.0 Blood Gas Tidal Volume 600.0 Blood Gas High PEEP Setting 5.0 Blood Gas Notified Whom TM Blood Gas Notified Time 12/01/2016 9:17:43 AM Test 12/01/16 10:28 Bedside Glucose 99 Medications Medications Current Medications Dopamine HCl/ Dextrose 250 ml @ 7.275 mls/ hr TITRATE IV Last administered on 11/28/16 17:40; Admin Dose 21.8 MLS/HR; Start 11/27/16 at 05:00 Pantoprazole 40 mg 40 mg DAILY@06 IV Last administered on 12/01/16 06:09; Admin Dose 40 MG; Start 11/28/16 at 06:00 Norepinephrine 16 mg/Dextrose 500 ml @ 1.87 mls/hr TITRATE IV Last administered on 11/29/16 21:49; Admin Dose 7.5 MLS/HR; Start 11/27/16 at 09:00 Midazolam HCl (Versed) 50 ml @ 1 mls/hr TITRATE IV Last administered on 06:23; Admin Dose 5 MLS/HR; Start 11/27/16 at 10:30 Acetaminophen 650 mg 650 mg Q6H PRN PO PAIN AND OR ELEVATED TEMP; Start at 12:00 Sodium Chloride (NS) 1,000 ml @ 20 mls/hr Q24H IV Last administered on 10:06; Admin Dose 100 MLS/HR; Start 11/27/16 at 12:30 Diagnostic Test (Pha) (Accu-Chek) 1 ea Q1H XX Last administered on 12/01/16 11: 18; Admin Dose 1 EA; Start 11/27/16 at 15:30 Dextrose (D50w Syringe) 25 ml Q15M PRN IV Till BS 80 mg/dL or above x2; Start 11/27/16 at 15:30 Dextrose (D50w Syringe) 50 ml Q15M PRN IV Till BS 80 mg/dL or above x2; Start 11/27/16 at 15:30 Heparin Sodium (Porcine) (Heparin (5000 Units/0.5 ml)) 5,000 unit BID SC Last administered on 12/01/16 08:53; Admin Dose 5,000 UNIT; Start 11/27/16 at 21:00 Aspirin (Aspirin) 81 mg DAILY NGT Last administered on 12/01/16 08:49; Admin Dose 81 MG; Start 11/28/16 at 09:00 Acetaminophen 650 mg 650 mg Q4H PRN NGT PAIN AND OR ELEVATED TEMP Last administered on 11/29/16 08:35; Admin Dose 650 MG; Start 11/27/16 at 17:32 Fluconazole/ Sodium Chloride 50 ml @ 50 mls/hr Q24H IVPB Last administered on 09:26; Admin Dose 50 MLS/HR; Start 11/28/16 at 10:15 Meropenem 100 ml @ 200 mls/hr Q24H IVPB Last administered on 11/30/16 17:32; Admin Dose 200 MLS/HR; Start 11/29/16 at 17:00 Bumetanide/ Dextrose/Water (Bumex/D5W) 120 ml @ 10 mls/hr Q12H ONCE IV Last administered on 12/01/16 09:23; Admin Dose 10 MLS/HR; Start 12/01/16 at 10:00; Stop 12/01/16 at 21:59 LATASHA BRUNNER NP Dec 01, 2016 12:24
--- NOTE | 2016-12-01 12:34 | CONS ---
Date/Time of Note Date/Time of Note DATE: 12/01/16 TIME: 12:29 Assessment/Plan Assessment/Plan Chief Complaint/Hosp Course Cardiorespiratory arrest Problems: Additional Assessment/Plan 51-year-old male past medical history of prediabetes, high cholesterol, who was having complaints weakness and decreased appetite and confusion and chills was admitted following an episode of unresponsiveness. Family started CPR and EMS was called and when patient arrived he was found with elevated troponin levels of 37, and on-call plastics nurse was called but determined that patient did not need to go to the [facility] at that time. Patient has been seen by Dr. Clemons and an EEG showed severe encephalopathy. PLAN: 1 apnea test 2 repeat EEG or cerebral blood flow study 3 transferred to [place] if that is the plan Consultation Date/Type/Reason Admit Date/Time Nov 27, 2016 at 05:46 Initial Consult Date 11/30/16 Type of Consultation: ID Referring Provider: TALIA LANGE 24 HR Interval Summary Free Text/Dictation Clinically unchanged. EEG done 2 days ago showed severe encephalopathy. Clinical examination shows absent corneals and gag reflexes. Apnea test is pending Exam/Review of Systems Vital Signs Vitals Vital Signs Date Time Temp Pulse Resp B/P Pulse Ox O2 Delivery O2 Flow Rate FiO2 12/01/16 11:45 100 12/01/16 09:20 58 24 97 12/01/16 06:00 100/73 Mechanical Ventilator 12/01/16 04:00 99.1 Intake and Output 11/30/16 11/30/16 12/01/16 15:00 23:00 07:00 Intake Total 277.25 ml 186.0 ml 12 ml Output Total 850 ml 650 ml 500 ml Balance -572.75 ml -464.0 ml -488 ml Exam Constitutional: non-verbal Head: atraumatic, normocephalic Eyes: nl conjunctiva, nl sclera Neck: non-tender Respiratory: other (Intubated, mechanically ventilated) Gastrointestinal: soft Neurological: other (Corneals and gag reflexes are absent, no withdrawal to noxious stimulus), unresponsive Results Result Diagram: 12/01/16 0430 12/01/16 0430 Results 24 hrs Laboratory Tests Test 11/30/16 14:10 11/30/16 16:27 11/30/16 17:33 11/30/16 19:36 Bedside Glucose 102 109 109 133 Test 11/30/16 21:47 11/30/16 22:57 12/01/16 01:01 12/01/16 03:17 Bedside Glucose 113 111 102 120 Test 12/01/16 04:30 12/01/16 05:46 12/01/16 08:32 12/01/16 08:59 White Blood Count 14.5 H Red Blood Count 3.24 L Hemoglobin 10.8 L Hematocrit 31.1 L Mean Corpuscular Volume 96.0 Mean Corpuscular Hemoglobin 33.3 H Mean Corpuscular Hemoglobin Concent 34.7 Red Cell Distribution Width 13.2 Platelet Count 270 Mean Platelet Volume 11.1 H Neutrophils % 79.3 H Lymphocytes % 12.2 L Monocytes % 4.9 Eosinophils % 1.3 Basophils % 0.4 Nucleated Red Blood Cells % 0.0 Neutrophils # 11.5 H Lymphocytes # 1.8 Monocytes # 0.7 Eosinophils # 0.2 Basophils # 0.1 Nucleated Red Blood Cells # 0.0 Sodium Level 137 Potassium Level 3.8 Chloride Level 103 Carbon Dioxide Level 17 L Anion Gap 21 H Blood Urea Nitrogen 114 #H Creatinine 9.83 H Glucose Level 106 Calcium Level 8.0 L Bedside Glucose 89 94 Blood Gas Specimen Source Blood arterial Arterial Blood Date Drawn 12/01/2016 9:08:51 AM Arterial Blood pH (Temp corrected) 7.456 H Arterial Blood pCO2 (Temp correct) 22.8 L Arterial Blood pO2 (Temp corrected) 78.4 L Arterial Blood HCO3 15.7 L Arterial Blood Base Excess -6.4 L Arterial Blood Oxygen Saturation 94.9 L Thomas Test ACCEPTAB Arterial Blood Gas Puncture Site Right Radial Arterial Blood Carboxyhemoglobin 0.3 Arterial Blood Methemoglobin 0.3 Blood Gas A-a O2 Differential 108.7 H Oxyhemoglobin Percent 94.3 Total Hemoglobin 12.0 Blood Gas Temperature 37.0 Blood Gas Respiration Rate 24.0 Blood Gas Actual Respiration Rate 24 Blood Gas Modality VENT - AC FiO2 30.0 Blood Gas Tidal Volume 600.0 Blood Gas High PEEP Setting 5.0 Blood Gas Notified Whom TM Blood Gas Notified Time 12/01/2016 9:17:43 AM Test 12/01/16 10:28 Bedside Glucose 99 Medications Medications Current Medications Dopamine HCl/ Dextrose 250 ml @ 7.275 mls/ hr TITRATE IV Last administered on 11/28/16t 17:40; Admin Dose 21.8 MLS/HR; Start 11/27/16 at 05:00 Pantoprazole 40 mg 40 mg DAILY@06 IV Last administered on 12/01/16 06:09; Admin Dose 40 MG; Start 11/28/16 at 06:00 Norepinephrine 16 mg/Dextrose 500 ml @ 1.87 mls/hr TITRATE IV Last administered on 11/29/16 21:49; Admin Dose 7.5 MLS/HR; Start 11/27/16 at 09:00 Midazolam HCl (Versed) 50 ml @ 1 mls/hr TITRATE IV Last administered on 06:23; Admin Dose 5 MLS/HR; Start 11/27/16 at 10:30 Acetaminophen 650 mg 650 mg Q6H PRN PO PAIN AND OR ELEVATED TEMP; Start at 12:00 Sodium Chloride (NS) 1,000 ml @ 20 mls/hr Q24H IV Last administered on 10:06; Admin Dose 100 MLS/HR; Start 11/27/16 at 12:30 Diagnostic Test (Pha) (Accu-Chek) 1 ea Q1H XX Last administered on 12/01/16 11: 18; Admin Dose 1 EA; Start 11/27/16 at 15:30 Dextrose (D50w Syringe) 25 ml Q15M PRN IV Till BS 80 mg/dL or above x2; Start 11/27/16 at 15:30 Dextrose (D50w Syringe) 50 ml Q15M PRN IV Till BS 80 mg/dL or above x2; Start 11/27/16 at 15:30 Heparin Sodium (Porcine) (Heparin (5000 Units/0.5 ml)) 5,000 unit BID SC Last administered on 12/01/16 08:53; Admin Dose 5,000 UNIT; Start 11/27/16 at 21:00 Aspirin (Aspirin) 81 mg DAILY NGT Last administered on 12/01/16 08:49; Admin Dose 81 MG; Start 11/28/16 at 09:00 Acetaminophen 650 mg 650 mg Q4H PRN NGT PAIN AND OR ELEVATED TEMP Last administered on 11/29/16 08:35; Admin Dose 650 MG; Start 11/27/16 at 17:32 Fluconazole/ Sodium Chloride 50 ml @ 50 mls/hr Q24H IVPB Last administered on 09:26; Admin Dose 50 MLS/HR; Start 11/28/16 at 10:15 Meropenem 100 ml @ 200 mls/hr Q24H IVPB Last administered on 11/30/16 17:32; Admin Dose 200 MLS/HR; Start 11/29/16 at 17:00 Bumetanide/ Dextrose/Water (Bumex/D5W) 120 ml @ 10 mls/hr Q12H ONCE IV Last administered on 12/01/16 09:23; Admin Dose 10 MLS/HR; Start 12/01/16 at 10:00; Stop 12/01/16 at 21:59 CROW GIFFORD MD Dec 01, 2016 12:34
[2016-12-01 12:44] LABS: AADO2 Arterial 204.4 mmHg (7.0-24.0); Allen Test ACCEPTAB; Arterial Base Excess -11.6 mmol/L (-3.0-3); Arterial COHb 0.3 % (0.0-3.0); Arterial Fraction of Oxyhgb 85.2 % (93.0-99.0); Arterial HCO3 16.1 mmol/L (22.0-26.0); Arterial MetHb 0.1 % (0.0-1.5); Arterial Total Hemglobin 12.1 g/dl (12.0-18.0); MODE NASAL CANNULA
--- NOTE | 2016-12-01 18:46 | DES ---
Date/Time of Note Date/Time of Note DATE: 12/01/16 TIME: 18:40 Discharge/ Summary Admission/Discharge Info Admit Date/Time Nov 27, 2016 at 05:46 Discharge Date/Time Final Diagnosis 1. 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 2. Renal failure - sec to ATN from hypoperfusion/sepsis (and possibly contrast from LHC). 3. Respiratory failure: Again patient was intubated in the ER. 4. Prediabetes: A1c = 7.3 5. GI prophylaxis: PPI 6. DVT prophylaxis: heparin 7. Cardiogenic and septic Shock Preliminary Cause of 1. Respiratory failure (minutes) 2. Cardiac arrest (days) Hospital Course 51-year-old male past medical history of prediabetes, high cholesterol, who was having complaints weakness and decreased appetite and confusion and chills for the last 3 days, per family. Most of the information is obtained from the family and ER documentation as the patient is presently intubated and on pressors. Her family early this morning patient got up complaining of left arm numbness as he was getting out of bed he fell forward and was nonresponsive. Family started CPR and EMS was called and when patient arrived he was found with elevated troponin levels of 37, and on-call foreign food specialty cook was called but determined that patient did not need to go to the [facility] at that time. There was no signs of any ST elevations on the EKG as well. Per family no prior history of any stroke or heart attack in the past. No complaints of any upper or lower GI bleeding no fevers no abdominal pain no chest pain or shortness of breath for the arrest occurred. Pt now intubated, renal failure, on insulin drip , followed by multiple consultants. Patient was admitted to the intensive care unit, seen by multiple specialists during this hospital stay including renal team, cardiology team, neurology team, pulmonary team. Patient underwent left heart cath and found with 70 % stenosis at distal RCA. Patient was initially placed on insulin drip, heparin drip, although heparin drip was later stopped. Patient's renal function also deteriorated, he had minimal urine output. And his creatinine levels were severely elevated. EEG done showed severe encephalopathy. Clinical examination shows absent corneals and gag reflexes. Patient also found to be in shock -likely combination of septic and cardiogenic shock. Unfortunately the patient did not clinically improve, palliative care team met with the family, the decision was made for terminal extubation on December 01, 2016. Patient was terminally extubated at 17:34, and later at 17:57 the same day. PE: General: Nonresponsive, nonverbal HEENT: No pupillary response, no extraocular movements Respiratory: No breath sounds able to be auscultated Cardiovascular: No heart sounds able to be auscultated Neurologic: No movements Pulses: not able to be palpated. Pending Labs/Cultures Laboratory Tests Test 11/30/16 19:36 11/30/16 21:47 11/30/16 22:57 12/01/16 01:01 Bedside Glucose 133mg/dL (70-220) 113mg/dL (70-220) 111mg/dL (70-220) 102mg/dL (70-220) Test 12/01/16 03:17 12/01/16 04:30 12/01/16 05:46 12/01/16 08:32 Bedside Glucose 120mg/dL (70-220) 89mg/dL (70-220) 94mg/dL (70-220) White Blood Count 14.510^3/ul (4.8-10.8) Red Blood Count 3.2410^6/ul (4.70-6.10) Hemoglobin 10.8g/dl (14.0-18.0) Hematocrit 31.1% (42.0-52.0) Mean Corpuscular Volume 96.0fl (82.0-101.0) Mean Corpuscular Hemoglobin 33.3pg (29.0-33.0) Mean Corpuscular Hemoglobin Concent 34.7g/dl (32.0-37.0) Red Cell Distribution Width 13.2% (11.5-14.5) Platelet Count 13104^3/UL (140-415) Mean Platelet Volume 11.1fl (7.4-10.4) Neutrophils % 79.3% (39.0-77.0) Lymphocytes % 12.2% (15.0-51.0) Monocytes % 4.9% (0.0-11.0) Eosinophils % 1.3% (0.0-7.0) Basophils % 0.4% (0.0-2.0) Nucleated Red Blood Cells % 0.0/100WBC (0.0-0.0) Neutrophils # 11.510^3/ul (1.6-7.5) Lymphocytes # 1.810^3/ul (0.8-2.9) Monocytes # 0.710^3/ul (0.3-0.9) Eosinophils # 0.210^3/ul (0.0-0.5) Basophils # 0.110^3/ul (0.0-0.1) Nucleated Red Blood Cells # 0.010^3/ul (0.0-0.0) Sodium Level 137mmol/L (135-144) Potassium Level 3.8mmol/L (3.5-5.1) Chloride Level 103mmol/L (97-110) Carbon Dioxide Level 17mmol/L (21-31) Anion Gap 21 (8-16) Blood Urea Nitrogen 114mg/dl (7-20) Creatinine 9.83mg/dl (0.61-1.24) Glucose Level 106mg/dl (70-220) Calcium Level 8.0mg/dl (8.4-10.2) Test 12/01/16 08:59 12/01/16 10:28 12/01/16 11:46 12/01/16 12:19 Blood Gas Specimen Source Blood arterial Blood arterial Arterial Blood Date Drawn 12/01/2016 9:08:51 AM 12/01/2016 12:30:45 PM Arterial Blood pH (Temp corrected) 7.456 (7.350-7.450) 7.190 (7.350-7.450) Arterial Blood pCO2 (Temp correct) 22.8mmhg (35-45) 43.0mmhg (35-45) Arterial Blood pO2 (Temp corrected) 78.4mmHG (80-100.0) 67.5mmHG (80-100.0) Arterial Blood HCO3 15.7mmol/L (22.0-26.0) 16.1mmol/L (22.0-26.0) Arterial Blood Base Excess -6.4mmol/L (-3.0-3) -11.6mmol/L (-3.0-3) Arterial Blood Oxygen Saturation 94.9mmHG (95.0-98.0) 85.5mmHG (95.0-98.0) Thomas Test ACCEPTAB ACCEPTAB Arterial Blood Gas Puncture Site Right Radial Right Radial Arterial Blood Carboxyhemoglobin 0.3% (0.0-3.0) 0.3% (0.0-3.0) Arterial Blood Methemoglobin 0.3% (0.0-1.5) 0.1% (0.0-1.5) Blood Gas A-a O2 Differential 108.7mmHg (7.0-24.0) 204.4mmHg (7.0-24.0) Oxyhemoglobin Percent 94.3% (93.0-99.0) 85.2% (93.0-99.0) Total Hemoglobin 12.0g/dl (12.0-18.0) 12.1g/dl (12.0-18.0) Blood Gas Temperature 37.0C 37.0C Blood Gas Respiration Rate 24.0 Blood Gas Actual Respiration Rate 24 Blood Gas Modality VENT - AC NASAL CANNULA FiO2 30.0% 45.0% Blood Gas Tidal Volume 600.0mL Blood Gas High PEEP Setting 5.0cmH2O Blood Gas Notified Whom TM TM Blood Gas Notified Time 12/01/2016 9:17:43 AM 12/01/2016 12:42:14 PM Bedside Glucose 99mg/dL (70-220) 98mg/dL (70-220) Blood Gas Critical Value Read Back Percy LAM RN Test 12/01/16 14:57 12/01/16 16:31 Bedside Glucose 102mg/dL (70-220) 113mg/dL (70-220) TALIA LANGE Dec 01, 2016 18:46
== END 2016-12-01 17:57 | disposition expired | DRG 870 ==
LOC: E/R 03:21 → ICU 05:46
PROVIDERS: ADMIT Family Medicine; ATTEND Family Medicine
PROC: 5A1955Z Respiratory Ventilation, Greater than 96 Consecutive Hours (ICD-10-PCS; 2016-11-27)
PROC: 4A023N7 Measurement of Cardiac Sampling and Pressure, Left Heart, Percutaneous Approach (ICD-10-PCS; 2016-11-27)
PROC: B211YZZ Fluoroscopy of Multiple Coronary Arteries using Other Contrast (ICD-10-PCS; 2016-11-27)
PROC: 06HY33Z Insertion of Infusion Device into Lower Vein, Percutaneous Approach (ICD-10-PCS; principal; 2016-11-27 15:00)
DX: A41.9 Sepsis, unspecified organism (principal); I49.01 Ventricular fibrillation; I21.4 Non-ST elevation (NSTEMI) myocardial infarction; N17.0 Acute kidney failure with tubular necrosis; R65.21 Severe sepsis with septic shock; J96.01 Acute respiratory failure with hypoxia; E87.1 Hypo-osmolality and hyponatremia; E87.2 Acidosis; I42.9 Cardiomyopathy, unspecified; G93.1 Anoxic brain damage, not elsewhere classified; N39.0 Urinary tract infection, site not specified; E11.9 Type 2 diabetes mellitus without complications; I46.2 Cardiac arrest due to underlying cardiac condition; I50.9 Heart failure, unspecified; T50.8X5A Adverse effect of diagnostic agents, initial encounter; Y92.238 Other place in hospital as the place of occurrence of the external cause
CPT/HCPCS: 31500; 36415; 36600; 70450; 71010; 74176; 76705; 76937; 80048; 80053; 80061; 80076; 80202; 81001; 81003; 82140; 82550; 82553; 82570; 82803; 82962; 83036; 83605; 83690; 83735; 83880; 84100; 84132; 84300; 84439; 84443; 84484; 85025; 85049; 85610; 85670; 85730; 87040; 87070; 87081; 87086; 89220; 93005; 93306; 93458; 94002; 94003; 94770; 95819; 96361; 96374; 96375; C1887; C1894; C9113; J0132; J0171; J1265; J1450; J1644; J1815; J2185; J2543; J3010; J3370; J7030; J7040; J7060; Q9967